=== PATIENT | female | born 1955 | race Hispanic/Latino ===

== ENCOUNTER 2017-11-09 17:30 | Observation (INO) | payer MEDICARE ==
[~2017-11-09] VITALS: Ht 162.6 cm; Wt 89.0 kg
[~2017-11-09 17:30] MED LIST: AMBIEN10 MG PO; AMBIEN5 MG PO; CALCIUM 500+D1 EACH PO; CIPRO500 MG PO; CLONAZEPAM0.5 M1 PO; CLONAZEPAM0.5 MG PO; CLONAZEPAM1 MG PO; FERROUS SULFAT325 MG PO; FLAGYL500 MG PO; HYDROCODON-ACE1 EACH PO; METOPROLOL SUCC25 MG PO; METOPROLOL TART50 MG PO; NEXIUM40 MG PO; NORCO 10-325 T1 EACH; NORCO 5-325 TA1 EACH PO; SEROPHENE50 MG PO; VICODIN ES 7.51 EACH PO; Z.0.LOSARTAN POTASS5 PO; Z.0.NEXIUM40 MG PO; Z.0.PAXIL40 MG PO; Z.0.SEROQUEL50 MG PO; Z.0.TOPROL XL50 MG PO
[2017-11-09] MEDS ORDERED: DEXTROSE 50% SYRINGE 50 ML IV STA (17:55)
[2017-11-09] MEDS ORDERED: ONDANSETRON HCL INJ 2 MG/ML VIAL IV STA (17:57)
[2017-11-09] MEDS ORDERED: SODIUM CHLORIDE 0.9% 1000ML 1,000 ML IV STA (17:57)
[2017-11-09] MEDS ORDERED: ASPIRIN 81 MG CHEW TAB PO ONE (18:00)
[2017-11-09 18:13] LABS: BASOPHILS % 0.7 % (0.0-1.0); EOSINOPHILS # (AUTO) 0.1 (0.0-0.4); EOSINOPHILS % 1.1 % (0.0-6.0); HEMATOCRIT 33.9 % (34.2-44.1); HEMOGLOBIN 10.7 g/dL (12.0-16.0); LYMPHOCYTES # (AUTO) 1.7 (1.0-3.2); LYMPHOCYTES % 38.5 % (18.0-39.1); MEAN CORPUSCULAR HEMOGLOBIN 26.7 pg (28-32); MEAN CORPUSCULAR HGB CONC 31.6 g/dL (31-35); MEAN CORPUSCULAR VOLUME 84.5 fL (81-99); MONOCYTES # (AUTO) 0.6 (0.2-0.8); MONOCYTES % 14.2 % (4.4-11.3); NEUTROPHILS % 45.3 % (38.7-80.0); PLATELET COUNT 200 x10e3/uL (140-360); RED BLOOD COUNT 4.01 x10e6/uL (3.6-5.1); RED CELL DISTRIBUTION WIDTH 15.3 % (11.7-14.4)
[2017-11-09] MEDS ORDERED: DIATRIZOATE MEGL/DIATRIZOA SOD 30 ML BTL PO ONE (18:19)
[2017-11-09 18:33] LABS: ALANINE AMINOTRANSFERASE 10 IU/L (0-55); ALBUMIN 3.8 g/dL (3.5-5.0); ALBUMIN/GLOBULIN RATIO 1.1 (0.8-2.0); ALKALINE PHOSPHATASE 76 IU/L (40-150); ANION GAP 12.7 mmol/L (8-16); BLOOD UREA NITROGEN 10 mg/dL (7-26); BUN/CREATININE RATIO 14 (6-25); CALCIUM 8.7 mg/dL (8.4-10.2); CARBON DIOXIDE 22 mmol/L (22-29); CHLORIDE 108 mmol/L (98-107); CREATINE KINASE 87 IU/L (29-168); CREATININE, SERUM 0.71 mg/dL (0.57-1.11); EST GLOMERULAR FILTRATION RATE > 60 ML/MIN (60-); POTASSIUM 3.7 mmol/L (3.5-5.1); SODIUM 139 mmol/L (136-145)
[2017-11-09] MEDS ORDERED: MORPHINE SULFATE 2 MG/ML SYR IV STA (18:33)
[2017-11-09 18:47] LABS: GLUCOSE 39 mg/dL (74-118)
[2017-11-09] MEDS ORDERED: DIPHENHYDRAMINE HCL INJ 1 ML ONE (19:01)
[2017-11-09] MEDS ORDERED: DIPHENHYDRAMINE HCL INJ 50 MG/ML VIAL IV ONE (19:30)
[2017-11-09] MEDS ORDERED: DEXTROSE 5%/0.45% SOD CHL 1,000 ML IV ONE (19:45)
--- NOTE | 2017-11-09 20:46 | Diagnostic Imaging Report ---
EXAM: CT ABDOMEN/PELVIS W DATE: 11/09/2017 6:05 PM INDICATION: Abdominal pain COMPARISON: 05/07/2016 TECHNIQUE: The abdomen and pelvis were scanned using a multidetector helical scanner. Coronal and sagittal reformations were obtained. Routine protocol performed. IV Contrast: 100 ml Isovue 370 FINDINGS: LOWER THORAX: Mild bibasilar atelectasis. LIVER/BILIARY: Stable low-density right liver lesion, likely benign. Unchanged mild biliary ductal dilation. GALLBLADDER: Cholecystectomy. SPLEEN: Unremarkable PANCREAS: Unremarkable ADRENALS: No nodules KIDNEYS: Symmetric perfusion. Stable subcentimeter probable left inferior renal cyst. No hydronephrosis. GI TRACT: Postsurgical changes are seen status post gastric bypass and prior sigmoidectomy. No evidence of obstruction or wall thickening. Normal appendix. VESSELS: Mild to moderate atherosclerotic changes. PERITONEUM/RETROPERITONEUM: No free air or fluid LYMPH NODES: No lymphadenopathy REPRODUCTIVE ORGANS/BLADDER: Hysterectomy. Bladder is mildly distended but otherwise unremarkable. SOFT TISSUES: Unremarkable BONES: There are scattered degenerative changes, worse at L5-S1. IMPRESSION: No acute abnormality. Signed by: Dr Gayle Kenny MD on 11/09/2017 8:43 PM
[2017-11-09] MEDS ORDERED: DEXTROSE 50% SYRINGE 50 ML IV PRN (21:15)
[2017-11-09 21:35] LABS: BILIRUBIN,URINE NEGATIVE (NEGATIVE); CLARITY,URINE CLEAR (CLEAR); COLOR,URINE YELLOW (YELLOW); KETONES,URINE NEGATIVE (NEGATIVE); LEUKOCYTE ESTERASE ,URINE NEGATIVE (NEGATIVE); NITRITE,URINE NEGATIVE (NEGATIVE); PROTEIN,URINE DIPSTICK NEGATIVE (NEGATIVE); URINE UROBILINOGEN 0.2 mg/dL (0.2 - 1)
[2017-11-09 21:43] LABS: BACTERIA,URINE MODERATE /HPF; EPITHELIAL CELLS,URINE RARE /LPF; RBC,URINE 0-5 /HPF (0-5); WBC,URINE (MAN) 0-5 /HPF (0-5)
[2017-11-09 22:27] VITALS: BP 157/88
[2017-11-09 22:48] VITALS: BP 157/88
[2017-11-09 23:02] VITALS: BP 157/88
[2017-11-10] VITALS (8 sets, daily range): BP systolic 102–135; BP diastolic 50–76
[2017-11-10] MEDS ORDERED: SODIUM CHLORIDE 0.9% 50ML 50 ML ONE (01:30)
[2017-11-10] MEDS ORDERED: IOPAMIDOL 370 MG/ML 200 ML INFUS..BTL INJ ONE (01:31)
[2017-11-10] MEDS ORDERED: METOPROLOL SUCCINATE 25 MG TAB XL PO SCH (05:00)
[2017-11-10] MEDS ORDERED: HYDROCODONE/APAP 10MG-325MG TAB PO PRN (05:00)
[2017-11-10] MEDS: LEVOFLOXACIN 500MG/D5W 100ML 100 ML IV SCH (06:16)
[2017-11-10] MEDS: METRONIDAZOLE 500MG/NS 100ML 100 ML IV SCH ×3 (06:16→21:00)
[2017-11-10 06:24] LABS: BASOPHILS % 0.8 % (0.0-1.0); EOSINOPHILS # (AUTO) 0.1 (0.0-0.4); EOSINOPHILS % 1.6 % (0.0-6.0); HEMATOCRIT 34.9 % (34.2-44.1); HEMOGLOBIN 10.7 g/dL (12.0-16.0); LYMPHOCYTES # (AUTO) 1.2 (1.0-3.2); LYMPHOCYTES % 33.3 % (18.0-39.1); MEAN CORPUSCULAR HEMOGLOBIN 26.4 pg (28-32); MEAN CORPUSCULAR HGB CONC 30.7 g/dL (31-35); MONOCYTES # (AUTO) 0.4 (0.2-0.8); MONOCYTES % 11.7 % (4.4-11.3); NEUTROPHILS # (AUTO) 1.9 (2.1-6.9); NEUTROPHILS % 52.3 % (38.7-80.0); PLATELET COUNT 167 x10e3/uL (140-360); RED BLOOD COUNT 4.06 x10e6/uL (3.6-5.1); RED CELL DISTRIBUTION WIDTH 15.3 % (11.7-14.4)
[2017-11-10] MEDS ORDERED: SODIUM CHLORIDE 0.9% 250ML 250 ML ONE (06:26)
[2017-11-10] MEDS: HYDROMORPHONE 1MG/1ML INJ IV PRN ×4 (06:31→20:35)
[2017-11-10] MEDS: ONDANSETRON HCL INJ 2 MG/ML VIAL IV PRN ×4 (06:32→20:35)
[2017-11-10 06:51] LABS: ALANINE AMINOTRANSFERASE 8 IU/L (0-55); ALBUMIN 3.4 g/dL (3.5-5.0); ALBUMIN/GLOBULIN RATIO 1.1 (0.8-2.0); ALKALINE PHOSPHATASE 68 IU/L (40-150); ANION GAP 11.2 mmol/L (8-16); BLOOD UREA NITROGEN 8 mg/dL (7-26); BUN/CREATININE RATIO 11 (6-25); CALCIUM 8.4 mg/dL (8.4-10.2); CARBON DIOXIDE 22 mmol/L (22-29); CHLORIDE 106 mmol/L (98-107); CREATININE, SERUM 0.71 mg/dL (0.57-1.11); EST GLOMERULAR FILTRATION RATE > 60 ML/MIN (60-); GLUCOSE 91 mg/dL (74-118); POTASSIUM 4.2 mmol/L (3.5-5.1); SODIUM 135 mmol/L (136-145)
[2017-11-10] MEDS: CLONAZEPAM 1 MG TAB PO SCH ×3 (08:21→21:49)
[2017-11-10] MEDS: PANTOPRAZOLE SOD 40 MG TABEC PO SCH (08:21)
--- NOTE | 2017-11-10 09:42 | History and Physical ---
PRIMARY CARE PHYSICIAN: Dr. Rizo CHIEF COMPLAINT: Diarrhea and abdominal pain. HISTORY OF PRESENT ILLNESS: This is a 62-year-old woman with a history of diverticulosis now developing abdominal pain and diarrhea for the past 2 days after eating a local restaurant. Abdominal pain is in the lower quadrant. No vomiting. She has been nauseous. She denies any fever, chest pain or sweats. The patient felt fatigued and dehydrated. The patient was found to be hypoglycemic. Glucose was as low as 39. PAST MEDICAL HISTORY: Chronic pain syndrome, diverticulosis, diverticulitis, status post colon resection times 2, small-bowel obstruction, status post surgical management, insomnia, and anxiety disorder. PAST SURGICAL HISTORY: Colon resection for diverticulitis, small-bowel obstruction related surgeries, carpal tunnel release surgery, hemorrhoidectomy, cholecystectomy, gastric bypass in 2000. ALLERGIES: PER ELECTRONIC RECORDS. FAMILY HISTORY/SOCIAL HISTORY: Patient is . She has 4 children. No alcohol or illicits. MEDICATIONS: Per electronic medical record. REVIEW OF SYSTEMS: Denies any dizziness, chest pain. PHYSICAL EXAMINATION VITAL SIGNS: Reviewed. GENERAL: A tired-appearing woman resting in bed. HEENT: Anicteric. Pupils respond to light. No oral lesions. CARDIOVASCULAR: Normal S1 and S2. LUNGS: Moderate breath sounds. ABDOMEN: Soft and nondistended. She has tenderness in the lower quadrant. No rebound or guarding. EXTREMITIES: No edema or calf tenderness. NEUROLOGICAL: Alert and oriented times 3. Moving all extremities. SKIN: Dry. PSYCHIATRIC: Flat affect. LABS: Reviewed. MEDICATIONS: Reviewed. ASSESSMENT AND PLAN: This is a 62-year-old woman with: 1. Acute gastroenteritis: Will start Flagyl and Levaquin. Will obtain stool for Clostridium difficile. We will rehydrate the patient with intravenous fluids. 2. Hypoglycemia, improved: Add D5 to fluids if needed. 3. Obesity: Screen for diabetes and obtain lipid panel. 4. Hypertension: Restart beta malik. 5. Abdominal pain: P.r.n. pain medications. 6. Insomnia: Restart Ambien. 7. Normocytic anemia: Will follow. 8. Mild leukopenia: Will follow. 9. Prophylaxis: Will use Lovenox and proton pump inhibitor. 10. Disposition: Monitor closely. Job#: [id number] [place]
[2017-11-10] MEDS ORDERED: ENOXAPARIN SOD INJ 40 MG/0.4 ML SYR SC SCH (17:00)
[2017-11-10] MEDS ORDERED: ZOLPIDEM TARTRATE 5 MG TAB PO SCH (21:00)
[2017-11-11 00:04] VITALS: BP 147/75
[2017-11-11] MEDS: ONDANSETRON HCL INJ 2 MG/ML VIAL IV PRN ×4 (01:00→13:15)
[2017-11-11] MEDS: HYDROMORPHONE 1MG/1ML INJ IV PRN ×4 (01:00→13:15)
[2017-11-11 04:00] VITALS: BP 122/72
[2017-11-11] MEDS ORDERED: SODIUM CHLORIDE 0.9% 250ML 250 ML ONE (04:47)
[2017-11-11] MEDS: METRONIDAZOLE 500MG/NS 100ML 100 ML IV SCH (05:23)
[2017-11-11] MEDS: PANTOPRAZOLE SOD 40 MG TABEC PO SCH (06:01)
[2017-11-11] MEDS: LEVOFLOXACIN 500MG/D5W 100ML 100 ML IV SCH (06:21)
[2017-11-11 07:05] VITALS: BP 145/91
[2017-11-11] MEDS ORDERED: FLAGYL500 MG PO (07:16)
[2017-11-11] MEDS ORDERED: LEVAQUIN500 MG PO (07:16)
[2017-11-11] MEDS ORDERED: ULTRAM 50MG50 MG PO (07:16)
[2017-11-11] MEDS ORDERED: IMODIUM2 MG PO (07:17)
[2017-11-11] MEDS ORDERED: LOPERAMIDE HCL 2 MG CAP PO PRN (07:30)
--- NOTE | 2017-11-11 07:43 | Progress Note ---
DATE: November 11, 2017 TIME: 7:00 a.m. OVERNIGHT: Complained of pain. REVIEW OF SYSTEMS: Denies any dizziness. One diarrhea episode overnight. PHYSICAL EXAM VITAL SIGNS: Reviewed. GENERAL: A tired-appearing woman resting in bed. HEENT: Anicteric. CARDIOVASCULAR: Normal S1/S2. LUNGS: Moderate breath sounds. ABDOMEN: Soft, nondistended. Tenderness in the lower quadrant of the abdomen. EXTREMITIES: No edema. NEUROLOGIC: Alert, awake, oriented times 3. Moving extremities. SKIN: Dry. PSYCHIATRIC: Flat affect. LABS: Reviewed. MEDICATIONS: Reviewed. ASSESSMENT: This is a 62-year-old woman. 1. Acute gastroenteritis. Will continue with antibiotics. Clostridium difficile testing is negative. Discharge planning. There is no leukocytosis. Patient can be transitioned home with p.o. medication. 2. Hypoglycemia, resolved. 3. Obesity. 4. Hemoglobin A1c is 5.0. Does not have diabetes. 5. Hypertension. Continue medication and blood pressure control. 6. Abdominal pain, improving. Continue pain medication. 7. Insomnia. 8. Normocytic anemia. 9. Mild leukopenia. 10. Prophylaxis. Continue proton pump inhibitor. 11. Disposition: Likely discharge home later today. Job#: [id number] CQ
[2017-11-11 08:00] VITALS: BP 145/91
[2017-11-11] MEDS: CLONAZEPAM 1 MG TAB PO SCH (08:24)
[2017-11-11 11:51] VITALS: BP 114/69
== END 2017-11-11 14:01 | disposition home or self-care (01) ==
LOC: ER 17:30 → ERHOLD 21:23 → IMCU 22:01
PROVIDERS: ADMIT Internal Medicine; ATTEND Internal Medicine
DX: K52.9 Noninfective gastroenteritis and colitis, unspecified (principal); E86.0 Dehydration; E16.2 Hypoglycemia, unspecified; D72.819 Decreased white blood cell count, unspecified; D64.9 Anemia, unspecified; I10 Essential (primary) hypertension; E66.9 Obesity, unspecified; Z68.33 Body mass index [BMI] 33.0-33.9, adult; G47.00 Insomnia, unspecified; Z98.84 Bariatric surgery status; Z90.49 Acquired absence of other specified parts of digestive tract
CPT/HCPCS: 36415 ×3; 74177; 80053 ×2; 81001; 82550; 82553; 82948 ×3; 83036; 84484; 85025 ×2; 85651; 87086; 87493; 93005; 96374; 99284; G0378 ×3; J1170 ×2; J1200; J1650; J1956 ×2; J2270; J2405 ×3; J7030; J7050 ×2; J7799; Q9967

== ENCOUNTER 2017-12-18 12:36 | Emergency (ER) | payer MEDICARE ==
[~2017-12-18] VITALS: Ht 162.6 cm; Wt 81.6 kg
[~2017-12-18 12:36] MED LIST changes: +IMODIUM2 MG PO; +LEVAQUIN500 MG PO; +ULTRAM 50MG50 MG PO
--- OUTSIDE RECORDS SUMMARY | 2017-12-18 12:39 | XMS REPORT | Continuity of Care Document ---
Author Author [facility] Organization [facility] Address [address] [place] [address] Phone Unavailable Care Team Providers Care Dental Instrument Maker Name Role Phone CHEN KIM MD PCP Insurance Providers Guarantor Juany Orr Address [address] [place] [address] Payer [facility] [employer] Policy Number [id number] Subscriber's Name Juany Orr Relationship 18 Self / Same As Patient Group Number [id number] Advance Directives Directive Response Recorded Date/Time Does the patient have an advance directive? No 11/09/17 10:57pm If yes, is advance directive on file with [facility]? No 11/09/17 10:57pm If not on file with [facility] will patient provide a copy? No 11/09/17 10:57pm Do you have a Directive to Physician? No 11/09/17 6:32pm Do you have a Medical Power of Hand Spring Repairer Helper? No 11/09/17 6:32pm Do you have an out of hospital Do Not Resuscitate Order? No 11/09/17 6:32pm Do you have any special needs we should be aware of? No 11/09/17 6:32pm Do you have a support person here with you today? Yes 11/09/17 6:32pm Did patient receive Notice of Privacy Practices? Yes 11/09/17 6:32pm Did patient receive patient rights and responsibilities? Yes 11/09/17 6:32pm Problems Medical Problem Onset Date Status Acute diarrhea Unknown Chest pain Unknown Chronic abdominal pain Unknown Acute Constipation by delayed colonic transit Unknown Acute Hypoglycemia Unknown Medications Current Home Medications Medication Dose Units Route Directions Days Qty Instructions Start Date Clonazepam 1 Mg Tablet 1 Mg Oral Three Times A Day Esomeprazole Magnesium (Nexium) 40 Mg Capsule. 40 Mg Oral Daily PROTONIX THERAPEUTIC SUBSTITUTE FOR NEXIUM PER [facility] Hydrocodone Bit/Acetaminophen ([place] 10-325 Tablet) 1 Each Tablet 10 Mg Every 4 Hours 50 Levofloxacin (Levaquin) 500 Mg Tablet 500 Mg Oral Daily 7 Days Loperamide Hcl (Imodium*) 2 Mg Cap 2 Mg Oral Every 6 Hours as needed for Diarrhea 14 Days 11/11/17 Metoprolol Succinate 25 Mg Tab.er.24h 25 Mg Oral As Needed Metronidazole (Flagyl) 500 Mg Tablet 500 Mg Oral Three Times A Day 7 Days 11/11/17 Tramadol Hcl (Ultram 50MG*) 50 Mg Tab 50 Mg Oral Every 8 Hours as needed for Pain 20 Tab 11/11/17 Zolpidem Tartrate (Ambien) 5 Mg Tablet 10 Mg Oral Bedtime Past Home Medications Medication Directions Ordered Status Calcium Carbonate/Vitamin D3 (Calcium 500+D Tablet Chew) 1 Each Tab.chew, 2 Tab Oral Daily Discontinued Clomiphene Citrate (Serophene) 50 Mg Tablet, 50 Mg Oral At Bedtime Discontinued Clonazepam 0.5 Mg Tablet, 0.5 Mg Oral Daily Discontinued Clonazepam 0.5 Mg Tab.rapdis, 0.5 Mg Oral As Needed Discontinued Esomeprazole Mag Trihydrate (Nexium) 40 Mg Capsule., 1 Tab Oral Daily Discontinued Ferrous Sulfate 325 Mg Tablet, 325 Mg Oral Daily Discontinued Hydrocodone Bit/Acetaminophen ([place] 5-325 Tablet) 1 Each Tablet, 1 Each Oral Q4-6 Hrs as needed for Pain Discontinued Losartan Potassium 50 Mg Tablet, 50 Tab Oral Daily Discontinued Metoprolol Succinate (Toprol Xl) 50 Mg Tab.sr.24h, 50 Tab Oral Daily Discontinued Metoprolol Tartrate 50 Mg Tablet, 50 Mg Oral Daily Discontinued Paroxetine Hcl (Paxil) 40 Mg Tablet, 1 Tab Oral Daily Discontinued Quetiapine Fumarate (Seroquel) 50 Mg Tablet, 1 Tab Oral Daily Discontinued Zolpidem Tartrate (Ambien) 10 Mg Tablet, 10 Mg Oral Bedtime Discontinued Social History Social History Problem Response Recorded Date/Time Onset Date Status Hx Psychiatric Problems No 11/09/2017 10:57pm Not Applicable Not Applicable Hx Eating Disorder No 11/09/2017 10:57pm Not Applicable Not Applicable Hx Substance Use Disorder No 11/09/2017 10:57pm Not Applicable Not Applicable Hx Depression No 11/09/2017 10:57pm Not Applicable Not Applicable Hx Alcohol Use No 11/09/2017 10:57pm Not Applicable Not Applicable Hx Substance Use Treatment No 11/09/2017 10:57pm Not Applicable Not Applicable Hx Physical Abuse No 11/09/2017 10:57pm Not Applicable Not Applicable Smoking Status Start Date Stop Date Former smoker Hospital Discharge Instructions No hospital discharge instruction information available. Plan of Care Discharge Date 11/11/17 2:01pm Disposition HOME, SELF-CARE Instructions/Education Provided Dehydration - Adult Prescriptions See Medication Section Referrals pcp (Internal Medicine) Order Date: 5-7 Days Entered Date: 11/11/2017 7:17am Functional Status Query Response Date Recorded Assistive Devices None November 09, 2017 11:02pm Ambulation Ability Independent November 09, 2017 11:02pm Toileting Ability Independent November 11, 2017 1:11pm Allergies, Adverse Reactions, Alerts Allergen Type Severity Reaction Status Last Updated Morphine Adverse Reaction Mild RASH Active 11/09/17 Immunizations No immunization information available. Vital Signs Acute Vital Signs Vital Response Date/Time Temperature (Fahrenheit) 98.7 degrees F (97.6 - 99.5) 11/11/2017 11:51am Pulse Pulse Rate (adult) 74 bpm (60 - 90) 11/11/2017 11:51am Respiratory Rate 20 bpm (12 - 24) 11/11/2017 11:51am Blood Pressure 114/69 mm Hg 11/11/2017 11:51am Height 5 ft 4 in 11/09/2017 5:50pm Weight 196.13 lb 11/09/2017 10:26pm Body Mass Index 33.7 kg/m^2 11/09/2017 10:57pm Results Laboratory Results Test Name Result Units Flags Reference Collection Date/Time Result Date/ Time Comments White Blood Count 3.66 x10e3/uL L 4.8-10.8 11/10/2017 5:11/10/2017 6:25am Red Blood Count 4.06 x10e6/uL 3.6-5.1 11/10/2017 5:11/10/2017 6: 25am Hemoglobin 10.7 g/dL L 12.0-16.0 11/10/2017 5:11/10/2017 6:25am Hematocrit 34.9 % 34.2-44.1 11/10/2017 5:11/10/2017 6:25am Mean Corpuscular Volume 86.0 fL 81-99 11/10/2017 5:11/10/2017 6: 25am Mean Corpuscular Hemoglobin 26.4 pg L 28-32 11/10/2017 5:2017 6:25am Mean Corpuscular Hemoglobin Concent 30.7 g/dL L 31-35 11/10/2017 5:11/10/2017 6:25am Red Cell Distribution Width 15.3 % H 11.7-14.4 11/10/2017 5:2017 6:25am Platelet Count 167 x10e3/uL 140-360 11/10/2017 5:11/10/2017 6: 25am Neutrophils (%) (Auto) 52.3 % 38.7-80.0 11/10/2017 5:11/10/2017 6: 25am Lymphocytes (%) (Auto) 33.3 % 18.0-39.1 11/10/2017 5:11/10/2017 6: 25am Monocytes (%) (Auto) 11.7 % H 4.4-11.3 11/10/2017 5:11/10/2017 6: 25am Eosinophils (%) (Auto) 1.6 % 0.0-6.0 11/10/2017 5:11/10/2017 6: 25am Basophils (%) (Auto) 0.8 % 0.0-1.0 11/10/2017 5:11/10/2017 6:25am IM GRANULOCYTES % 0.3 % 0.0-1.0 11/10/2017 5:23am 11/10/2017 6:25am Neutrophils # (Auto) 1.9 L 2.1-6.9 11/10/2017 5:23am 11/10/2017 6: 25am Lymphocytes # (Auto) 1.2 1.0-3.2 11/10/2017 5:23am 11/10/2017 6:25am Monocytes # (Auto) 0.4 0.2-0.8 11/10/2017 5:23am 11/10/2017 6:25am Eosinophils # (Auto) 0.1 0.0-0.4 11/10/2017 5:23am 11/10/2017 6:25am Basophils # (Auto) 0.0 0.0-0.1 11/10/2017 5:23am 11/10/2017 6:25am Absolute Immature Granulocyte (auto 0.01 x10e3/uL 0-0.1 11/10/2017 5: 23am 11/10/2017 6:25am Erythrocyte Sedimentation Rate 8 mm/hr 0-20 11/10/2017 8:30am 2017 9:29am Urine Color YELLOW YELLOW 11/09/2017 9:30pm 11/09/2017 9:36pm Urine Clarity CLEAR CLEAR 11/09/2017 9:30pm 11/09/2017 9:36pm Urine Specific [place] 1.015 1.010-1.025 11/09/2017 9:30pm 2017 9:36pm Urine pH 6 5 - 7 11/09/2017 9:30pm 11/09/2017 9:36pm Urine Leukocyte Esterase NEGATIVE NEGATIVE 11/09/2017 9:30pm 2017 9:36pm Urine Nitrite NEGATIVE NEGATIVE 11/09/2017 9:30pm 11/09/2017 9:36pm Urine Protein NEGATIVE NEGATIVE 11/09/2017 9:30pm 11/09/2017 9:36pm Urine Glucose (UA) NEGATIVE NEGATIVE 11/09/2017 9:30pm 11/09/2017 9: 36pm Urine Ketones NEGATIVE NEGATIVE 11/09/2017 9:30pm 11/09/2017 9:36pm Urine Urobilinogen 0.2 mg/dL 0.2 - 1 11/09/2017 9:30pm 11/09/2017 9: 36pm Urine Bilirubin NEGATIVE NEGATIVE 11/09/2017 9:30pm 11/09/2017 9: 36pm Urine Blood TRACE H NEGATIVE 11/09/2017 9:30pm 11/09/2017 9:36pm Urine WBC 0-5 /HPF 0-5 11/09/2017 9:30pm 11/09/2017 9:43pm Urine RBC 0-5 /HPF 0-5 11/09/2017 9:30pm 11/09/2017 9:43pm Urine Bacteria MODERATE /HPF H NONE 11/09/2017 9:30pm 11/09/2017 9:43pm Urine Epithelial Cells RARE /LPF NONE 11/09/2017 9:30pm 11/09/2017 9: 43pm Sodium Level 135 mmol/L L 136-145 11/10/2017 5:23am 11/10/2017 7:00am Potassium Level 4.2 mmol/L 3.5-5.1 11/10/2017 5:23am 11/10/2017 7:00am Chloride Level 106 mmol/L 98-107 11/10/2017 5:23am 11/10/2017 7:00am Carbon Dioxide Level 22 mmol/L 22-29 11/10/2017 5:23am 11/10/2017 7: 00am Anion Gap 11.2 mmol/L 8-16 11/10/2017 5:23am 11/10/2017 7:00am Blood Urea Nitrogen 8 mg/dL 7-26 11/10/2017 5:23am 11/10/2017 7:00am Creatinine 0.71 mg/dL 0.57-1.11 11/10/2017 5:23am 11/10/2017 7:00am BUN/Creatinine Ratio 11 6-25 11/10/2017 5:23am 11/10/2017 7:00am Estimat Glomerular Filtration Rate > 60 ML/MIN 60- 11/10/2017 5:23am 7:00am Ranges were taken from the National Kidney Disease Education Program and the National Kid[employer] Foundation literature. Reference ranges: 60 or greater: Normal 16-59 (for 3 consecutive months): Chronic kidney disease 15 or less: Kidney failure Glucose Level 91 mg/dL 74-118 11/10/2017 5:23am 11/10/2017 7:00am Calcium Level 8.4 mg/dL 8.4-10.2 11/10/2017 5:23am 11/10/2017 7:00am Bedside Glucose 105 mg/dL 70-120 11/11/2017 11:40am 11/11/2017 11:47am Meter ID: [id number] Hemoglobin A1c Percent 5.0 % 4.0-7.0 11/10/2017 5:23am 11/10/2017 7: 35am Total Bilirubin 0.5 mg/dL 0.2-1.2 11/10/2017 5:23am 11/10/2017 7:00am Aspartate Amino Transf (AST/SGOT) 18 IU/L 5-34 11/10/2017 5:23am 2017 7:00am Alanine Aminotransferase (ALT/SGPT) 8 IU/L 0-55 11/10/2017 5:23am 11/10 7:00am Total Protein 6.6 g/dL 6.5-8.1 11/10/2017 5:23am 11/10/2017 7:00am Albumin 3.4 g/dL L 3.5-5.0 11/10/2017 5:23am 11/10/2017 7:00am Globulin 3.2 g/dL 2.3-3.5 11/10/2017 5:23am 11/10/2017 7:00am Albumin/Globulin Ratio 1.1 0.8-2.0 11/10/2017 5:23am 11/10/2017 7: 00am Alkaline Phosphatase 68 IU/L 40-150 11/10/2017 5:23am 11/10/2017 7: 00am Creatine Kinase 87 IU/L 29-168 11/09/2017 5:50pm 11/09/2017 6:47pm Creatine Kinase MB 1.00 ng/mL 0-5.0 11/09/2017 5:50pm 11/09/2017 6: 47pm Troponin I < 0.00 ng/mL L 0.0-0.78 11/09/2017 5:50pm 11/09/2017 6:47pm Clostridium Difficile Toxin A & B NEGATIVE NEGATIVE 11/10/2017 4:35pm 11/10/2017 8:22pm Testing on stool aspirate specimens is outside gin feeder claims since specimen type not validated on this assay. Procedures Procedure Status Date Provider(s) Computed tomography of abdomen and pelvis with contrast Active 11/09/17 MIKEY FLORENTINO MD Encounters Encounter Location Arrival/Admit Date Discharge/Depart Date Attending Provider Discharged Inpatient (obs) [facility] 11/09/17 9:23pm 2:01pm GIANFRANCO CUNHA MD
--- OUTSIDE RECORDS SUMMARY | 2017-12-18 12:39 | XMS REPORT | Clinical Summary ---
Author Author [facility] Address Unknown Phone Unavailable Care Team Providers Care Claims Configuration Analyst Name Role Phone Asked, Pcp PCP Unavailable Allergies Active Allergy Reactions Severity Noted Date Comments Morphine Hives 11/24/2017 Blisters Current Medications Prescription Sig. Disp. Refills Start End Date Status Date clonAZEPAM (KlonoPIN) 1 Take 1 mg by mouth every Active MG tablet 8 (eight) hours as needed for anxiety. clonAZEPAM (KlonoPIN) 2 Take 2 mg by mouth every Active MG tablet 8 (eight) hours as needed for anxiety. diclofenac (VOLTAREN) 1 % Apply 1 application Active gel topically every 6 (six) hours as needed (pain). HYDROcodone-acetaminophen Take 1 tablet by mouth Active (NORCO) 10-325 mg per every 8 (eight) hours as tablet needed for moderate pain. promethazine-codeine Take 5 mL by mouth every Active (PHENERGAN with CODEINE) 6 (six) hours as needed 6.25-10 mg/5 mL syrup for cough. zolpidem (AMBIEN) 10 mg Take 10 mg by mouth Active tablet nightly as needed for sleep. cholecalciferol, vitamin Take 1,000 Units by mouth Active D3, (VITAMIN D3) 1,000 daily. unit tablet ascorbic acid, vitamin C, Take 500 mg by mouth Active (VITAMIN C) 500 MG tablet daily. TURMERIC ROOT EXTRACT Take 1 tablet by mouth Active ORAL daily. amoxicillin-pot Take 1 tablet by mouth 2 20 tablet 0 11/27/19 clavulanate (AUGMENTIN) (two) times a day for 10 18 18 875-125 mg per tablet days. methylPREDNISolone follow package directions 21 tablet 0 11/27/19 (MEDROL, KERRY,) 4 mg 18 18 tablet Active Problems Problem Noted Date Pneumonia of right middle lobe due to infectious organism 11/25/2017 Atypical pneumonia 11/25/2017 Encounters Date Type Specialty Care Team Description 11/24/2017 [facility] General Internal Medicine Anh Finney MD Pneumonia of right middle - Encounter Faye Marsh MD lobe due to infectious 11/26/2017 Althea Kincaid organism (Primary Dx) MD Gia after 12/17/2016 Social History Tobacco Use Types Packs/Day Years Used Date Never Smoker Smokeless Tobacco: Never Used Alcohol Use Drinks/Week oz/Week Comments No Sex Assigned at Date Recorded Not on file Last Filed Vital Signs Vital Sign Reading Time Taken Blood Pressure 135/81 11/26/2017 4:09 PM HALL MANAGER Pulse 97 11/26/2017 4:13 PM HALL MANAGER Temperature 35.9 C (96.7 F) 11/26/2017 4:09 PM HALL MANAGER Respiratory Rate 16 11/26/2017 4:09 PM HALL MANAGER Oxygen Saturation 96% 11/26/2017 4:13 PM HALL MANAGER Inhaled Oxygen - - Concentration Weight 83.9 kg (185 lb) 11/25/2017 7:00 AM HALL MANAGER Height 162.6 cm (5' 4") 11/24/2017 7:34 PM HALL MANAGER Body Mass Index 31.75 11/25/2017 7:00 AM HALL MANAGER Plan of Treatment Health Maintenance Due Date Last Done Comments PAP SMEAR 1974 COLONOSCOPY 2003 MAMMOGRAM 2003 ZOSTER VACCINE 2013 INFLUENZA VACCINE 04/22/2017 Results * ECG ED Preliminary Interpretation - NOT AN ORDER (11/25/2017 7:39 AM) Narrative Jazzmine Duvalla 11/25/20171:40 AM ECG ED Preliminary Interpretation - Not an Order Performed by: ANH FINNEY Authorized by: ANH FINNEY ECG reviewed by ED Physician in the absence of a disability case manager: yes Previous ECG: Previous ECG:Unavailable Interpretation: Interpretation: normal Rate: ECG rate:105 ECG rate assessment: tachycardic Rhythm: Rhythm: sinus tachycardia Ectopy: Ectopy: none QRS: QRS axis:Normal QRS intervals:Normal Conduction: Conduction: normal ST segments: ST segments:Normal T waves: T waves: normal * Lactic acid level, SEPSIS - Now and repeat 2x every 3 hours (11/25/2017 3:13 AM) Only the most recent of 3 results within the time period is included. Component Value Ref Range Lactic acid 1.2 0.5 - 2.2 mmol/L Specimen Performing Laboratory Plasma specimen [facility] DEPARTMENT OF PATHOLOGY AND [address] [address] * ALT (SGPT) (11/25/2017 3:13 AM) Component Value Ref Range ALT <5 (A) 5 - 50 U/L Specimen Performing Laboratory Plasma specimen [facility] DEPARTMENT OF PATHOLOGY AND [address] [address] * AST (SGOT) (11/25/2017 3:13 AM) Component Value Ref Range AST 17 10 - 35 U/L Specimen Performing Laboratory Plasma specimen [facility] DEPARTMENT OF PATHOLOGY AND [address] [address] * Potassium level (11/25/2017 3:13 AM) Component Value Ref Range Potassium 3.6 3.5 - 5.0 mEq/L Specimen Performing Laboratory Plasma specimen [facility] DEPARTMENT OF PATHOLOGY [address] [address] * CT Chest Wo Contrast (11/25/2017 2:35 AM) Specimen Performing Laboratory [facility] [address] [place] [id number] CHEST WO CONTRAST CLINICAL INDICATION: cough TECHNIQUE:Multidetector CT imaging of the chest was performed without intravenous contrast with multiplanar reconstructions. CT scans are performed using radiation dose reduction techniques (iterative reconstruction and/or automated exposure control). Technical factors are evaluated and adjusted to ensure appropriate moderation of exposure. Automated dose management technology is applied to adjust radiation exposure while achieving a diagnostic quality image. COMPARISON:Chest radiograph 11/24/2017. FINDINGS: Lungs and large airways: Scattered bilateral central peribronchovascular groundglass opacities with basilar predominance. Pleura:No pleural effusion, pleural thickening, or pneumothorax. Heart and pericardium:Heart size is normal. Trace pericardial effusion. Vessels:Mild calcific atherosclerosis of the thoracic aorta. Main pulmonary artery measures 2.7 cm in diameter. Coronary atherosclerosis. Evaluation of vessel lumens is limited due to lack of IV contrast. Mediastinum and yanet:No mass or hematoma. Lymph nodes:No pathological adenopathy in the yanet, axilla or mediastinum. Chest wall:Unremarkable. Bones:Diffuse osteopenia. Mild degenerative changes. Upper abdomen: Status post cholecystectomy. Postsurgical changes of the stomach. IMPRESSION: Scattered bilateral groundglass opacities, likely atypical pneumonia. [facility]-[id number] Procedure Note Hm Interface, Radiology Results Incoming - 11/25/2017 2:[address] CHEST WO CONTRAST CLINICAL INDICATION: cough TECHNIQUE: Multidetector CT imaging of the chest was performed without intravenous contrast with multiplanar reconstructions. CT scans are performed using radiation dose reduction techniques (iterative reconstruction and/or automated exposure control). Technical factors are evaluated and adjusted to ensure appropriate moderation of exposure. Automated dose management technology is applied to adjust radiation exposure while achieving a diagnostic quality image. COMPARISON: Chest radiograph 11/24/2017. FINDINGS: Lungs and large airways: Scattered bilateral central peribronchovascular groundglass opacities with basilar predominance. Pleura: No pleural effusion, pleural thickening, or pneumothorax. Heart and pericardium: Heart size is normal. Trace pericardial effusion. Vessels: Mild calcific atherosclerosis of the thoracic aorta. Main pulmonary artery measures 2.7 cm in diameter. Coronary atherosclerosis. Evaluation of vessel lumens is limited due to lack of IV contrast. Mediastinum and yanet: No mass or hematoma. Lymph nodes: No pathological adenopathy in the yanet, axilla or mediastinum. Chest wall: Unremarkable. Bones: Diffuse osteopenia. Mild degenerative changes. Upper abdomen: Status post cholecystectomy. Postsurgical changes of the stomach. IMPRESSION: Scattered bilateral groundglass opacities, likely atypical pneumonia. [facility]-[id number] * Blood culture, aerobic & anaerobic (11/25/2017 1:00 AM) Only the most recent of 2 results within the time period is included. Component Value Ref Range Blood culture isolate No growth after 5 days of incubation. Comment: Specimen Information Specimen Source: Blood Specimen Site: Antecubital, right Specimen Performing Laboratory Blood - Antecubital, [facility] DEPARTMENT OF PATHOLOGY AND GENOMIC MEDICINE right [address] [place] [address] * ECG 12 lead (11/24/2017 11:04 PM) Component Value Ref Range Ventricular rate 105 Atrial rate 105 DC interval 156 QRSD interval 82 QT interval 348 QTC interval 459 P axis 1 10 QRS axis 1 -24 T wave axis 17 EKG impression Sinus tachycardia-Poor R wave progression- Specimen Performing Laboratory [facility] [address]USE [address] [place] [address] * Estimated GFR (11/24/2017 10:43 PM) Component Value Ref Range GFR Non Af Amer >90 mL/min/1.73 m2 GFR Af Amer >90 mL/min/1.73 m2 Comment: Chronic kidney disease: <60 mL/min/1.73m2 Kidney failure: <15 mL/min/1.73m2 The estimated GFR is calculated from the IDMS-traceable Modification of Diet in Renal Disease Equation. The accuracy of the calculation is poor when the creatinine is normal. Calculated values >90 mL/min/1.73m2 are not reported. This equation has not been validated in children (<18 years), women, the elderly (>70 years), or ethnic groups other than Caucasians and Americans. Specimen Performing Laboratory Plasma specimen [facility] DEPARTMENT OF PATHOLOGY AND GENOMIC MEDICINE [address] [place] [address] * CBC with platelet and differential (11/24/2017 10:43 PM) Component Value Ref Range WBC 11.49 (H) 4.50 - 11.00 k/uL RBC 4.02 (L) 4.20 - 5.50 m/uL HGB 10.7 (L) 12.0 - 16.0 g/dL HCT 34.4 (L) 37.0 - 47.0 % MCV 85.6 82.0 - 100.0 fL MCH 26.6 (L) 27.0 - 34.0 pg MCHC 31.1 31.0 - 37.0 g/dL RDW - SD 47.8 37.0 - 55.0 fL MPV 10.2 8.8 - 13.2 fL Platelet count 250 150 - 400 k/uL Nucleated RBC 0.00 /100 WBC Neutrophils 80.1 (H) 39.0 - 69.0 % Lymphocytes 12.8 (L) 25.0 - 45.0 % Monocytes 5.3 0.0 - 10.0 % Eosinophils 0.7 0.0 - 5.0 % Basophils 0.2 0.0 - 1.0 % Immature granulocytes 0.9Comment: "Immature granulocytes" 0.0 - 1.0 % (promyelocytes, myelocytes, metamyelocytes) Specimen Performing Laboratory Blood [facility] DEPARTMENT OF PATHOLOGY AND GENOMIC MEDICINE [address] [place] [phone] * Comprehensive metabolic panel (11/24/2017 10:43 PM) Component Value Ref Range Sodium 137 135 - 148 mEq/L Potassium SEE COMMENT 3.5 - 5.0 mEq/L Comment: Footnote--------- Sample is hemolyzed. Chloride 99 98 - 112 mEq/L CO2 25 24 - 31 mEq/L Anion gap 13 7 - 15 mEq/L Comment: Starting from December , anion gap calculation no longer incorporates potassium. Please note the change. BUN 8 8 - 23 mg/dL Creatinine 0.5 0.5 - 0.9 mg/dL Glucose 99 65 - 99 mg/dL Calcium 8.7 (L) 8.8 - 10.2 mg/dL Protein 7.7 6.3 - 8.3 g/dL Comment: [place] 4.6-7.0 g/dL 1 week 4.4-7.6 g/dL 7 months-1year 5.1-7.3 g/dL 1-2 years 5.6-7.5 g/dL >3 years 6.0-8.0 g/dL 18-150 6.3-8.3 g/dL Albumin 3.1 (L) 3.5 - 5.0 g/dL A/G ratio 0.7 0.7 - 3.8 Alkaline phosphatase SEE COMMENTComment: Footnote--------- 35 - 104 U/L AST SEE COMMENTComment: Footnote--------- 10 - 35 U/L ALT SEE COMMENTComment: Footnote--------- 5 - 50 U/L Total bilirubin 0.6 0.0 - 1.2 mg/dL Specimen Performing Laboratory Plasma specimen [facility] DEPARTMENT OF PATHOLOGY AND GENOMIC MEDICINE [address] [place], [place] [id number] * XR Chest 2 Vw (11/24/2017 9:20 PM) Specimen [facility] [address] [place], [place] [id number] Narrative Study:XR CHEST 2 VW History: fever COMPARISON: None. IMPRESSION: 2 views of the chest.There is a streaky opacity in the retrocardiac region which could represent some scarring or infiltrate. There is some mild reticulation in the lower zones of both lungs could be related to scarring. No lobar consolidation or pleural effusion. No pneumothorax.Cardiac silhouette is normal. Visualized osseous structures arewithout acute abnormality. [facility]-[id number] Procedure Note Interface, Radiology Results Incoming - 11/24/2017 9:24 PM HALL MANAGER Study:XR CHEST 2 VW History: fever COMPARISON: None. IMPRESSION: 2 views of the chest. There is a streaky opacity in the retrocardiac region which could represent some scarring or infiltrate. There is some mild reticulation in the lower zones of both lungs could be related to scarring. No lobar consolidation or pleural effusion. No pneumothorax. Cardiac silhouette is normal. Visualized osseous structures are without acute abnormality. [facility]-[id number] after 12/17/2016 Insurance Payer Benefit Subscriber ID Type Phone Address Plan / Group [employer] [facility] xxxxxxxxx [facility] [address] [id number] [place] [id number]
--- OUTSIDE RECORDS SUMMARY | 2017-12-18 12:39 | XMS REPORT ---
Author [facility] Address Unknown Phone Unavailable Care Team Providers Care Garment Worker Name Role Phone MIKEY FLORENTINO Unavailable Unavailable Problems This patient has no known problems. Allergies, Adverse Reactions, Alerts This patient has no known allergies or adverse reactions. Medications This patient has no known medications. Results Test Description Test Time Test Comments Text Results Atomic Results Result Comments CT ABDOMEN/PELVIS W [place] [address] Patient Name: YASMINE FELIX MR #: [id number] : 1955 Age/Sex: 62/F Req #: [id number] Adm Physician: Ordered by: MIKEY FLORENTINO MD Report #: [id number] Location: ER Room/Bed: Procedure: [id number] CT/CT ABDOMEN/PELVIS W Exam Date: 11/09/17 Exam Time : 1949 REPORT STATUS: Signed EXAM: CT ABDOMEN/PELVIS W DATE: 2017 6:05 PM INDICATION: Abdominal pain COMPARISON: 05/07/2016 TECHNIQUE: The abdomen and pelvis were scanned using a multidetector helical scanner. Coronal and sagittal reformations were obtained. Routine protocol performed. IV Contrast: 100 ml Isovue 370 FINDINGS: LOWER THORAX: Mild bibasilar atelectasis. LIVER/BILIARY: Stable low-density right liver lesion , likely benign. Unchanged mild biliary ductal dilation. GALLBLADDER: Cholecystectomy. SPLEEN: Unremarkable PANCREAS: Unremarkable ADRENALS: No nodules KIDNEYS: Symmetric perfusion. Stable subcentimeter probable left inferior renal cyst. No hydronephrosis. GI TRACT: Postsurgical changes are seen status post gastric bypass and prior sigmoidectomy. No evidence of obstruction or wall thickening. Normal appendix. VESSELS: Mild to moderate atherosclerotic changes. PERITONEUM/RETROPERITONEUM: No free air or fluid LYMPH NODES: No lymphadenopathy REPRODUCTIVE ORGANS/BLADDER: Hysterectomy. Bladder is mildly distended but otherwise unremarkable. SOFT TISSUES: Unremarkable BONES: There are scattered degenerative changes, worse at L5-S1. IMPRESSION: No acute abnormality. Signed by: Dr Ash Kenny MD on 11/09/2017 8:43 PM Dictated By: ASH KENNY MD 42 Transcribed By: JENNIFER on 11/09 COPY TO: MIKEY FLORENTINO MD
[2017-12-18 13:32] LABS: BASOPHILS % 0.3 % (0.0-1.0); EOSINOPHILS # (AUTO) 0.1 (0.0-0.4); HEMATOCRIT 32.4 % (34.2-44.1); HEMOGLOBIN 10.6 g/dL (12.0-16.0); LYMPHOCYTES % 16.6 % (18.0-39.1); MEAN CORPUSCULAR HEMOGLOBIN 27.4 pg (28-32); MEAN CORPUSCULAR HGB CONC 32.7 g/dL (31-35); MEAN CORPUSCULAR VOLUME 83.7 fL (81-99); MONOCYTES # (AUTO) 0.4 (0.2-0.8); MONOCYTES % 6.9 % (4.4-11.3); NEUTROPHILS # (AUTO) 4.5 (2.1-6.9); NEUTROPHILS % 73.9 % (38.7-80.0); PLATELET COUNT 202 x10e3/uL (140-360); RED BLOOD COUNT 3.87 x10e6/uL (3.6-5.1); RED CELL DISTRIBUTION WIDTH 14.4 % (11.7-14.4)
[2017-12-18 13:53] LABS: ALANINE AMINOTRANSFERASE 6 IU/L (0-55); ALBUMIN 3.4 g/dL (3.5-5.0); ALKALINE PHOSPHATASE 78 IU/L (40-150); ANION GAP 12.2 mmol/L (8-16); BLOOD UREA NITROGEN 9 mg/dL (7-26); BUN/CREATININE RATIO 13 (6-25); CALCIUM 9.1 mg/dL (8.4-10.2); CARBON DIOXIDE 25 mmol/L (22-29); CHLORIDE 105 mmol/L (98-107); CREATININE, SERUM 0.68 mg/dL (0.57-1.11); EST GLOMERULAR FILTRATION RATE > 60 ML/MIN (60-); GLUCOSE 112 mg/dL (74-118); POTASSIUM 4.2 mmol/L (3.5-5.1); SODIUM 138 mmol/L (136-145)
[2017-12-18 13:57] LABS: MAGNESIUM 1.8 MG/DL (1.3-2.1)
[2017-12-18 14:00] LABS: BILIRUBIN,URINE NEGATIVE (NEGATIVE); KETONES,URINE NEGATIVE (NEGATIVE); LEUKOCYTE ESTERASE ,URINE 1+ (NEGATIVE); NITRITE,URINE NEGATIVE (NEGATIVE); PROTEIN,URINE DIPSTICK NEGATIVE (NEGATIVE); URINE UROBILINOGEN 0.2 mg/dL (0.2 - 1)
[2017-12-18 14:01] LABS: CLARITY,URINE CLEAR (CLEAR); COLOR,URINE YELLOW (YELLOW)
[2017-12-18 14:19] LABS: BACTERIA,URINE FEW /HPF; EPITHELIAL CELLS,URINE FEW /LPF; RBC,URINE 0-5 /HPF (0-5)
[2017-12-18 16:09] LABS: INR 1.01; PROTHROMBIN TIME 12.5 seconds (11.9-14.5)
[2017-12-18 16:10] LABS: PARTIAL THROMBOPLASTIN TIME 28.3 seconds (23.8-35.5)
[2017-12-18 16:14] LABS: CREATINE KINASE 52 IU/L (29-168)
== END 2017-12-18 19:05 | disposition left against medical advice (07) ==
LOC: ER 12:36
DX: M54.9 Dorsalgia, unspecified (principal)
CPT/HCPCS: 36415; 80053; 81001; 82150; 82550; 82553; 83690; 83735; 84484; 85025; 85610; 85730

== ENCOUNTER 2018-02-16 03:28 | Emergency (ER) | payer MEDICARE ==
[~2018-02-16] VITALS: Ht 162.6 cm; Wt 77.1 kg
[2018-02-16] MEDS ORDERED: PANTOPRAZOLE 40 MG 10ML VIAL IV STA (03:35)
[2018-02-16] MEDS ORDERED: ONDANSETRON HCL 4 MG ORAL DISINTEGRATING TAB PO ONE (03:45)
[2018-02-16 03:58] LABS: BASOPHILS % 0.5 % (0.0-1.0); EOSINOPHILS # (AUTO) 0.1 (0.0-0.4); HEMATOCRIT 35.2 % (34.2-44.1); HEMOGLOBIN 10.9 g/dL (12.0-16.0); LYMPHOCYTES # (AUTO) 1.4 (1.0-3.2); LYMPHOCYTES % 33.9 % (18.0-39.1); MEAN CORPUSCULAR HEMOGLOBIN 26.5 pg (28-32); MEAN CORPUSCULAR VOLUME 85.6 fL (81-99); MONOCYTES # (AUTO) 0.5 (0.2-0.8); MONOCYTES % 11.3 % (4.4-11.3); NEUTROPHILS # (AUTO) 2.1 (2.1-6.9); NEUTROPHILS % 52.1 % (38.7-80.0); PLATELET COUNT 187 x10e3/uL (140-360); RED BLOOD COUNT 4.11 x10e6/uL (3.6-5.1); RED CELL DISTRIBUTION WIDTH 13.4 % (11.7-14.4)
[2018-02-16 03:59] LABS: CLARITY,URINE CLEAR (CLEAR); COLOR,URINE YELLOW (YELLOW)
[2018-02-16 04:00] LABS: BILIRUBIN,URINE NEGATIVE (NEGATIVE); KETONES,URINE NEGATIVE (NEGATIVE); LEUKOCYTE ESTERASE ,URINE TRACE (NEGATIVE); NITRITE,URINE NEGATIVE (NEGATIVE); PROTEIN,URINE DIPSTICK NEGATIVE (NEGATIVE); URINE UROBILINOGEN 1 mg/dL (0.2 - 1)
[2018-02-16 04:06] LABS: EPITHELIAL CELLS,URINE FEW /LPF; TRANSITIONAL EPI CELLS,URINE FEW
[2018-02-16 04:07] LABS: BACTERIA,URINE RARE /HPF
[2018-02-16 04:18] LABS: ALANINE AMINOTRANSFERASE 13 IU/L (0-55); ALBUMIN 3.8 g/dL (3.5-5.0); ALKALINE PHOSPHATASE 90 IU/L (40-150); AMYLASE 68 U/L (25-125); ANION GAP 14.7 mmol/L (8-16); BLOOD UREA NITROGEN 10 mg/dL (7-26); BUN/CREATININE RATIO 14 (6-25); CARBON DIOXIDE 21 mmol/L (22-29); CHLORIDE 106 mmol/L (98-107); CREATINE KINASE 67 IU/L (29-168); CREATININE, SERUM 0.69 mg/dL (0.57-1.11); EST GLOMERULAR FILTRATION RATE > 60 ML/MIN (60-); GLUCOSE 94 mg/dL (74-118); LIPASE 37 U/L (8-78); POTASSIUM 4.7 mmol/L (3.5-5.1); SODIUM 137 mmol/L (136-145)
--- NOTE | 2018-02-16 05:24 | Diagnostic Imaging Report ---
EXAM: CT ABDOMEN AND PELVIS without IV CONTRAST INDICATION: Abdominal pain, nausea and vomiting COMPARISON: CT of the abdomen and pelvis November 09, 2017 TECHNIQUE: The abdomen and pelvis were scanned using a multidetector helical scanner. Coronal and sagittal reformations were obtained. Routine protocol performed. IV Contrast: None Oral Contrast: Gastrografin CTDIvol has been reviewed. It is below the limits set by the Radiation Protocol Committee (RPC). FINDINGS: LOWER THORAX: No consolidations LIVER: No masses BILIARY: Cholecystectomy. No abnormal ductal dilation. SPLEEN: No masses PANCREAS: No masses ADRENALS: No nodules RIGHT KIDNEY: No nephroureterolithiasis or hydronephrosis. LEFT KIDNEY: No nephroureterolithiasis or hydronephrosis. GI TRACT: No wall thickening or obstruction. Surgical changes of gastric bypass. Surgical sutures around the sigmoid colon. Normal appendix. VESSELS: Mild atherosclerotic changes of the abdominal aorta without aneurysm. PERITONEUM/RETROPERITONEUM: No free air or fluid LYMPH NODES: No lymphadenopathy REPRODUCTIVE ORGANS: Not visualized BLADDER: Normal SOFT TISSUES: Normal BONES: No suspicious bone lesions. IMPRESSION: No acute findings. No bowel obstruction. Signed by: Dr. Lena Nascimento M.D. on 02/16/2018 5:20 AM
[2018-02-16 05:35] VITALS: BP 153/77
== END 2018-02-16 06:00 | disposition home or self-care (01) ==
LOC: ER 03:28
DX: K29.00 Acute gastritis without bleeding (principal); N30.90 Cystitis, unspecified without hematuria; I10 Essential (primary) hypertension; M19.90 Unspecified osteoarthritis, unspecified site
CPT/HCPCS: 99283

== ENCOUNTER 2018-10-31 12:57 | Emergency (ER) | payer MEDICARE ==
[~2018-10-31] VITALS: Ht 162.6 cm; Wt 77.1 kg
--- OUTSIDE RECORDS SUMMARY | 2018-10-31 13:02 | XMS REPORT | Clinical Summary ---
Author Author [facility] Organization [facility] Address Unknown Phone Unavailable Care Team Providers Care Supervisor Shed Workers Name Role Phone Asked, No Pcp PCP Unavailable Allergies Comments Active Allergy Reactions Severity Noted Date Blisters Morphine Hives 11/24/2017 Medications End Date Status Medication Sig Dispensed Refills Start Date Active clonAZEPAM (KlonoPIN) 1 Take 1 mg by 0 MG tablet mouth every 8 (eight) hours as needed for anxiety. Active clonAZEPAM (KlonoPIN) 2 Take 2 mg by 0 MG tablet mouth every 8 (eight) hours as needed for anxiety. Active diclofenac (VOLTAREN) 1 % Apply 1 0 gel application topically every 6 (six) hours as needed (pain). Active HYDROcodone-acetaminophen Take 1 tablet 0 (NORCO) 10-325 mg per by mouth tablet every 8 (eight) hours as needed for moderate pain. Active promethazine-codeine Take 5 mL by 0 (PHENERGAN with CODEINE) mouth every 6 6.25-10 mg/5 mL syrup (six) hours as needed for cough. Active zolpidem (AMBIEN) 10 mg Take 10 mg by 0 tablet mouth nightly as needed for sleep. Active cholecalciferol, vitamin Take 1,000 0 D3, (VITAMIN D3) 1,000 Units by unit tablet mouth daily. Active ascorbic acid, vitamin C, Take 500 mg 0 (VITAMIN C) 500 MG tablet by mouth daily. Active TURMERIC ROOT EXTRACT Take 1 tablet 0 ORAL by mouth daily. 12/06/2017 amoxicillin-pot Take 1 tablet 20 tablet 0 clavulanate (AUGMENTIN) by mouth 2 8 875-125 mg per tablet (two) times a day for 10 days. 12/01/2017 methylPREDNISolone follow 21 tablet 0 (MEDROL, KERRY,) 4 mg package 8 tablet directions Active Problems Problem Noted Date Pneumonia of right middle lobe due to infectious organism 11/25/2017 Atypical pneumonia 11/25/2017 Encounters Care Team Description Date Type Specialty Anh Finney MD Joglekar, Swati, MD Patel, Althea Nielsen MD Pneumonia of right middle lobe due to infectious organism (Primary Dx) 11/24/2017 [facility] General Internal Medicine - Encounter 11/26/2017 after 10/30/2017 Social History Date Tobacco Use Types Packs/Day Years Used Never Smoker Smokeless Tobacco: Never Used Alcohol Use Drinks/Week oz/Week Comments No Sex Assigned at Date Recorded Not on file Industry Job Start Date Occupation Not on file Not on file Not on file Travel End Travel History Travel Start No recent travel history available. Last Filed Vital Signs Time Taken Vital Sign Reading 11/26/2017 4:09 PM CONSTRUCTION AND MAINTENANCE INSPECTOR Blood Pressure 135/81 11/26/2017 4:13 PM CONSTRUCTION AND MAINTENANCE INSPECTOR Pulse 97 11/26/2017 4:09 PM CONSTRUCTION AND MAINTENANCE INSPECTOR Temperature 35.9 C (96.7 F) 11/26/2017 4:09 PM CONSTRUCTION AND MAINTENANCE INSPECTOR Respiratory Rate 16 11/26/2017 4:13 PM CONSTRUCTION AND MAINTENANCE INSPECTOR Oxygen Saturation 96% - Inhaled Oxygen - Concentration 11/25/2017 7:00 AM CONSTRUCTION AND MAINTENANCE INSPECTOR Weight 83.9 kg (184 lb 16 oz) 11/24/2017 7:34 PM CONSTRUCTION AND MAINTENANCE INSPECTOR Height 162.6 cm (5' 4") 11/25/2017 7:00 AM CONSTRUCTION AND MAINTENANCE INSPECTOR Body Mass Index 31.75 Plan of Treatment Health Maintenance Due Date Last Done Comments CERVICAL CANCER SCREENING 1974 BREAST CANCER SCREENING 2003 COLON CANCER SCREENING 2003 SHINGLES VACCINES (1 of 2003 2) PNEUMOCOCCAL 2018 POLYSACCHARIDE VACCINE AGE 65 AND OVER PNEUMOCOCCAL-13 2018 INFLUENZA VACCINE 04/22/2018 Procedures Comments Procedure Name Priority Date/Time Associated Diagnosis ECG ED PRELIMINARY Routine 11/25/2017 INTERPRETATION 7:39 AM CONSTRUCTION AND MAINTENANCE INSPECTOR LACTIC ACID LEVEL, SEPSIS STAT 11/25/2017 - NOW AND REPEAT 2X EVERY 3:13 AM CONSTRUCTION AND MAINTENANCE INSPECTOR 3 HOURS ALT (SGPT) STAT 11/25/2017 3:13 AM CONSTRUCTION AND MAINTENANCE INSPECTOR AST (SGOT) STAT 11/25/2017 3:13 AM CONSTRUCTION AND MAINTENANCE INSPECTOR POTASSIUM LEVEL STAT 11/25/2017 3:13 AM CONSTRUCTION AND MAINTENANCE INSPECTOR CT CHEST WO CONTRAST STAT 11/25/2017 2:35 AM CONSTRUCTION AND MAINTENANCE INSPECTOR LACTIC ACID LEVEL, SEPSIS Timed 11/25/2017 - NOW AND REPEAT 2X EVERY 1:37 AM CONSTRUCTION AND MAINTENANCE INSPECTOR 3 HOURS BLOOD CULTURE, AEROBIC & Routine 11/25/2017 ANAEROBIC 1:00 AM CONSTRUCTION AND MAINTENANCE INSPECTOR ECG 12-LEAD Routine 11/24/2017 11:04 PM CONSTRUCTION AND MAINTENANCE INSPECTOR ZZESTIMATED GFR STAT 11/24/2017 10:43 PM CONSTRUCTION AND MAINTENANCE INSPECTOR LACTIC ACID LEVEL, SEPSIS STAT 11/24/2017 - NOW AND REPEAT 2X EVERY 10:43 PM CONSTRUCTION AND MAINTENANCE INSPECTOR 3 HOURS HC COMPLETE BLD COUNT STAT 11/24/2017 W/AUTO DIFF 10:43 PM CONSTRUCTION AND MAINTENANCE INSPECTOR COMPREHENSIVE METABOLIC STAT 11/24/2017 PANEL 10:43 PM CONSTRUCTION AND MAINTENANCE INSPECTOR BLOOD CULTURE, AEROBIC & Routine 11/24/2017 ANAEROBIC 9:43 PM CONSTRUCTION AND MAINTENANCE INSPECTOR XR CHEST 2 VW STAT 11/24/2017 9:20 PM CONSTRUCTION AND MAINTENANCE INSPECTOR after 10/30/2017 Results * ECG ED Preliminary Interpretation - NOT AN ORDER (11/25/2017 7:39 AM CONSTRUCTION AND MAINTENANCE INSPECTOR) Narrative Performed At [facility] 11/25/20171:40 AM ECG ED Preliminary Interpretation - Not an Order Performed by: ANH FINNEY Authorized by: ANH FINNEY ECG reviewed by ED Physician in the absence of a washerette machine operator: yes Previous ECG: Previous ECG:Unavailable Interpretation: Interpretation: normal Rate: ECG rate:105 ECG rate assessment: tachycardic Rhythm: Rhythm: sinus tachycardia Ectopy: Ectopy: none QRS: QRS axis:Normal QRS intervals:Normal Conduction: Conduction: normal ST segments: ST segments:Normal T waves: T waves: normal * Lactic acid level, SEPSIS - Now and repeat 2x every 3 hours (11/25/2017 3:13 AM CONSTRUCTION AND MAINTENANCE INSPECTOR) Only the most recent of 3 results within the time period is included. Lactic acid 1.2 0.5 - 2.2 mmol/L [facility] DEPARTMENT OF PATHOLOGY AND GENOMIC MEDICINE Specimen Plasma specimen Performing Organization Address [facility] Cent[facility] Phone Number [facility] [place] [address] PATHOLOGY AND GENOMIC MEDICINE * ALT (SGPT) (11/25/2017 3:13 AM CONSTRUCTION AND MAINTENANCE INSPECTOR) ALT <5 (A) 5 - 50 U/L [facility] DEPARTMENT PATHOLOGY AND GENOMIC MEDICINE Specimen Plasma specimen Performing Organization Address [facility] Phone Number [facility] [place] [address] PATHOLOGY AND GENOMIC MEDICINE * AST (SGOT) (11/25/2017 3:13 AM CONSTRUCTION AND MAINTENANCE INSPECTOR) AST 17 10 - 35 U/L [facility] DEPARTMENT PATHOLOGY AND GENOMIC MEDICINE Specimen Plasma specimen Performing Organization Address [facility] [place] [address] PATHOLOGY AND GENOMIC MEDICINE * Potassium level (11/25/2017 3:13 AM CONSTRUCTION AND MAINTENANCE INSPECTOR) Potassium 3.6 3.5 - 5.0 mEq/L [facility] DEPARTMENT OF PATHOLOGY AND GENOMIC MEDICINE Specimen Plasma specimen Performing Organization Address [facility] Phone Number [facility] [place] [address] PATHOLOGY AND GENOMIC MEDICINE * CT Chest Wo Contrast (11/25/2017 2:35 AM CONSTRUCTION AND MAINTENANCE INSPECTOR) Narrative Performed At CT CHEST WO CONTRAST RADIANT CLINICAL INDICATION: cough TECHNIQUE:Multidetector CT imaging of [...] Scattered bilateral groundglass opacities, likely atypical pneumonia. [facility]-[id number] Procedure Note [facility], Radiology Results Incoming - 11/25/2017 2:49 AM CONSTRUCTION AND MAINTENANCE INSPECTOR CT CHEST WO CONTRAST CLINICAL INDICATION: cough [...] Scattered bilateral groundglass opacities, likely atypical pneumonia. [facility]-[id number] Performing Organization Address City/[facility]/Zipcode Phone Number [facility] [address] [place] [address] * Blood culture, aerobic & anaerobic (11/25/2017 1:00 AM CONSTRUCTION AND MAINTENANCE INSPECTOR) Only the most recent of 2 results within the time period is included. Blood culture isolate No growth after [address] [facility] DEPARTMENT OF incubation. PATHOLOGY AND Comment: GENOMIC MEDICINE Specimen Information Specimen Source: Blood Specimen Site: Antecubital, right Specimen Blood - Antecubital, right Performing Organization Address City/[facility]/Zipcode Phone Number [facility] DEPARTMENT OF [address] [place] [address] PATHOLOGY AND GENOMIC MEDICINE * ECG 12 lead (11/24/2017 11:04 PM CONSTRUCTION AND MAINTENANCE INSPECTOR) Ventricular rate 105 [facility] MUSE Atrial rate 105 [facility] MUSE CT interval 156 [facility] MUSE QRSD interval 82 [facility] MUSE QT [facility] 348 [facility] MUSE QTC interval 459 [facility] P axis [address] [facility] MUSE QRS axis 1 -24 [facility] MUSE T wave axis 17 [facility] MUSE EKG impression Sinus tachycardia-Poor R wave [facility] MUSE progression- Performing Organization Address City/[facility] Phone Number [facility] [address] [place] [address] * Estimated GFR (11/24/2017 10:43 PM CONSTRUCTION AND MAINTENANCE INSPECTOR) GFR Non Af Amer >90 mL/min/1.[address] [facility] DEPARTMENT OF PATHOLOGY AND GENOMIC MEDICINE GFR Af Amer >90 mL/min/1.[address] [facility] DEPARTMENT OF Comment: PATHOLOGY AND Chronic kidney disease: <60 GENOMIC MEDICINE mL/min/1.73m2 Kidney failure: <15 mL/min/1.73m2 The estimated GFR is calculated from the IDMS-traceable Modification of Diet in Renal Disease Equation. The accuracy of the calculation is poor when the creatinine is normal. Calculated values >90 mL/min/1.73m2 are not reported. This equation has not been validated in children (<18 years), women, the elderly (>70 years), or ethnic groups other than Caucasians and Americans. Specimen Plasma specimen Performing Organization Address [facility] Phone Number [facility] [address] [place] [address] PATHOLOGY AND GENOMIC MEDICINE * CBC with platelet and differential (11/24/2017 10:43 PM CONSTRUCTION AND MAINTENANCE INSPECTOR) WBC 11.49 (H) 4.50 - 11.00 k/uL [facility] DEPARTMENT OF PATHOLOGY AND GENOMIC MEDICINE RBC 4.02 (L) 4.20 - 5.50 m/uL [facility] DEPARTMENT OF PATHOLOGY AND GENOMIC MEDICINE HGB 10.7 (L) 12.0 - 16.0 g/dL [facility] DEPARTMENT OF PATHOLOGY AND GENOMIC MEDICINE HCT 34.4 (L) 37.0 - 47.0 % [facility] DEPARTMENT OF PATHOLOGY AND GENOMIC MEDICINE MCV 85.6 82.0 - 100.[address] [facility] DEPARTMENT OF PATHOLOGY AND GENOMIC MEDICINE MCH 26.6 (L) 27.0 - 34.[address] [facility] DEPARTMENT OF PATHOLOGY AND GENOMIC MEDICINE MCHC 31.1 31.0 - 37.0 g/dL [facility] DEPARTMENT OF PATHOLOGY AND GENOMIC MEDICINE RDW - SD 47.8 37.0 - 55.[address] [facility] DEPARTMENT OF PATHOLOGY AND GENOMIC MEDICINE MPV 10.2 8.8 - 13.[address] [facility] DEPARTMENT OF PATHOLOGY AND GENOMIC MEDICINE Platelet count 250 150 - 400 k/uL [facility] DEPARTMENT OF PATHOLOGY AND GENOMIC MEDICINE Nucleated RBC 0.00 /[address] [facility] DEPARTMENT OF PATHOLOGY AND GENOMIC MEDICINE Neutrophils 80.1 (H) 39.0 - 69.0 % [facility] DEPARTMENT OF PATHOLOGY AND GENOMIC MEDICINE Lymphocytes 12.8 (L) 25.0 - 45.0 % [facility] DEPARTMENT OF PATHOLOGY AND GENOMIC MEDICINE Monocytes 5.3 0.0 - 10.0 % [facility] DEPARTMENT OF PATHOLOGY AND GENOMIC MEDICINE Eosinophils 0.7 0.0 - 5.0 % [facility] DEPARTMENT OF PATHOLOGY AND GENOMIC MEDICINE Basophils 0.2 0.0 - 1.0 % [facility] DEPARTMENT OF PATHOLOGY AND GENOMIC MEDICINE Immature granulocytes 0.9Comment: "Immature 0.0 - 1.0 % [facility] DEPARTMENT OF granulocytes" (promyelocytes, PATHOLOGY AND myelocytes, metamyelocytes) [facility] Specimen Blood Performing Organization Address City/State/Zipcode Phone Number [facility] DEPARTMENT OF [address] [place] [address] PATHOLOGY AND GENOMIC MEDICINE * Comprehensive metabolic panel (11/24/2017 10:43 PM CONSTRUCTION AND MAINTENANCE INSPECTOR) Sodium 137 135 - 148 mEq/L [facility] DEPARTMENT OF PATHOLOGY AND GENOMIC MEDICINE Potassium SEE COMMENT 3.5 - 5.0 mEq/L [facility] DEPARTMENT OF Comment: PATHOLOGY AND Footnote--------- GENOMIC MEDICINE Sample is hemolyzed. Chloride 99 98 - 112 mEq/L [facility] DEPARTMENT OF PATHOLOGY AND GENOMIC MEDICINE CO2 25 24 - 31 mEq/L [facility] DEPARTMENT OF PATHOLOGY AND GENOMIC MEDICINE Anion gap 13 7 - 15 mEq/L [facility] DEPARTMENT OF Comment: PATHOLOGY AND Starting from December [facility] MEDICINE , anion gap calculation no longer incorporates potassium. Please note the change. BUN 8 8 - 23 mg/dL [facility] DEPARTMENT OF PATHOLOGY AND GENOMIC MEDICINE Creatinine 0.5 0.5 - 0.9 mg/dL [facility] DEPARTMENT OF PATHOLOGY AND GENOMIC MEDICINE Glucose 99 65 - 99 mg/dL [facility] DEPARTMENT OF PATHOLOGY AND GENOMIC MEDICINE Calcium 8.7 (L) 8.8 - 10.2 mg/dL [facility] DEPARTMENT OF PATHOLOGY AND GENOMIC MEDICINE Protein 7.7 6.3 - 8.3 g/dL [facility] DEPARTMENT OF Comment: PATHOLOGY AND [place] GENOMIC MEDICINE 4.6-7.0 g/dL 1 week 4.4-7.6 g/dL 7 months-1year 5.1-7.3 g/dL 1-2 years5.6-7 .5 g/dL >3 years6.0-8 .0 g/dL 18-150 6.3-8.3 g/dL Albumin 3.1 (L) 3.5 - 5.0 g/dL [facility] DEPARTMENT OF PATHOLOGY AND GENOMIC MEDICINE A/G ratio 0.7 0.7 - 3.8 [facility] DEPARTMENT OF PATHOLOGY AND GENOMIC MEDICINE Alkaline phosphatase SEE COMMENTComment: 35 - 104 U/L [facility] DEPARTMENT OF Footnote--------- PATHOLOGY AND GENOMIC MEDICINE AST SEE COMMENTComment: 10 - 35 U/L [facility] DEPARTMENT OF Footnote--------- PATHOLOGY AND GENOMIC MEDICINE ALT SEE COMMENTComment: 5 - 50 U/L [facility] DEPARTMENT OF Footnote--------- PATHOLOGY AND GENOMIC MEDICINE Total bilirubin 0.6 0.0 - 1.2 mg/dL [facility] DEPARTMENT OF PATHOLOGY AND GENOMIC MEDICINE Specimen Plasma specimen Performing Organization Address City/State/Zipcode Phone Number [facility] DEPARTMENT OF [address] [place] [address] PATHOLOGY AND GENOMIC MEDICINE * XR Chest 2 Vw (11/24/2017 9:20 PM CONSTRUCTION AND MAINTENANCE INSPECTOR) Narrative Performed At Study:XR CHEST 2 VW RADIANT History: fever COMPARISON: None. IMPRESSION: 2 views of the chest.There is a streaky opacity in the retrocardiac region which could represent some scarring or infiltrate. There is some mild reticulation in the lower zones of both lungs could be related to scarring. No lobar consolidation or pleural effusion. No pneumothorax.Cardiac silhouette is normal.Visualized osseous structures arewithout acute abnormality. [facility]-[id number] Procedure Note Hm Interface, Radiology Results Incoming - 11/24/2017 9:24 PM CONSTRUCTION AND MAINTENANCE INSPECTOR Study:XR CHEST 2 VW History: fever COMPARISON: [...] Visualized osseous structures are without acute abnormality. [facility]-[id number] Performing Organization Address City/State/Zipcode Phone Number [facility] [address] [place] [address] after 10/30/2017 Insurance Payer Benefit Subscriber ID Type Phone Address Plan / Group [employer] CIGNA xxxxxxxxx HMO HE[employer]I [place] HMO MCR ADV Advance Directives Patient has advance care planning documents, and code status on file. For more i nformation, please contact: Delfin Islas [address] [place] [address] Date Inactivated Comments Code Status Date Activated 11/25/2017 1:55 PM Full Code 11/25/2017 7:39 AM Code Status decision reached by: Patient
--- NOTE | 2018-10-31 14:24 | Diagnostic Imaging Report ---
Exam: Left hip radiographs- 2 views; AP radiograph of the pelvis - 1 view Indication: Status post fall with pain to left hip. Comparison: None. Findings: Left hip: No evidence of acute fracture or malalignment. Pelvis: No evidence of acute fracture or malalignment. Mild degenerative changes of bilateral hips and pubic symphysis. Surgical clips project over the lower abdomen. Impression: No acute radiographic abnormality. Signed by: Dr. Priscilla Weinstein MD on 10/31/2018 2:20 PM
[2018-10-31] MEDS ORDERED: HYDROCODONE/APAP 5MG-325MG TAB PO NR (14:30)
--- NOTE | 2018-10-31 14:37 | Diagnostic Imaging Report ---
Exam: Head and cervical spine CTs without contrast Indication: Fall presumably from standing, hit head and passed out Comparisons: Head and cervical spine CTs 02/19/2016. Technique: Axial images were obtained from the brain and cervical spine. Coronal and sagittal images reconstructed from the axial data. Dose modulation, iterative reconstruction, and/or weight based adjustment of the mA/kV was utilized to reduce the radiation dose to as low as reasonably achievable. Intravenous contrast: None Findings: Head CT: Scalp/skull: No abnormalities. No fractures, blastic or lytic lesions. Brain sulci: Appropriate for age. Ventricles: Normal in size and configuration. No hydrocephalus. Extra-axial spaces: No masses. No fluid collections. Parenchyma: Few hypodensities of the periventricular and deep white matter, non specific and most commonly seen in mild chronic microvascular ischemic changes. No masses, hemorrhage, acute or chronic cortical vascular insults. Sellar/suprasellar region: No abnormalities. Craniocervical junction: Patent foramen magnum. No Chiari one malformation. Cervical spine CT: Airway: Patent. Fractures: None. Soft tissues: No gross abnormalities. Atlantoaxial articulation: Intact. Alignment: Normal lordosis. No scoliosis. Cervicomedullary junction: No abnormalities. Patent foramen magnum. Vertebrae: No infection or neoplasm. Degenerative changes: Moderate right foraminal stenosis at C5-C6. Mild to moderate canal stenosis at C6-C7. Otherwise, no significant degenerative changes. IMPRESSION: Head CT: 1. No acute abnormality. 2. No changes when compared to head CT dated 02/19/2016. Cervical spine CT: 1. No acute abnormalities. 2. Cannot adequately evaluate for ligament, spinal cord and or vascular abnormalities. 3. Bilateral predominant cervical spondylosis from C5 to C7. A preliminary report was provided by Dr. Luna on 10/31/2018 2:31 PM. Signed by: DR Mesfin Lee M.D. on 10/31/2018 3:34 PM
--- NOTE | 2018-10-31 14:41 | Diagnostic Imaging Report ---
Exam: Left wrist radiographs-3 views Indication: Fall with pain in the left wrist. Comparison: None. Findings: Diffuse osteopenia. No evidence of acute fracture, malalignment, or soft tissue abnormality. Moderate degenerative changes at the first carpometacarpal joint with joint space narrowing.. Impression: No acute radiographic abnormality. Diffuse osteopenia. Signed by: Dr. Priscilla Weinstein MD on 10/31/2018 2:38 PM
--- NOTE | 2018-10-31 14:45 | NUR ---
norco 5 given for back pain 07/01. pt has tolerated well before.
--- NOTE | 2018-10-31 16:08 | NUR ---
JAK ROMERO IN ROOM WITH PATIENT AT THIS TIME.
== END 2018-10-31 16:54 | disposition home or self-care (01) ==
LOC: ER 12:57
DX: S00.83XA Contusion of other part of head, initial encounter (principal); S60.212A Contusion of left wrist, initial encounter; S70.02XA Contusion of left hip, initial encounter; W01.0XXA Fall on same level from slipping, tripping and stumbling without subsequent striking against object, initial encounter; Y92.008 Other place in unspecified non-institutional (private) residence as the place of occurrence of the external cause; I10 Essential (primary) hypertension; Z98.84 Bariatric surgery status; Z98.0 Intestinal bypass and anastomosis status
CPT/HCPCS: 70450; 72125; 99284

== ENCOUNTER 2018-12-11 13:21 | Emergency (ER) | payer MEDICARE ==
[~2018-12-11] VITALS: Ht 162.6 cm; Wt 75.7 kg
--- OUTSIDE RECORDS SUMMARY | 2018-12-11 13:24 | XMS REPORT | Clinical Summary ---
Author Author [facility] Organization [facility] Address Unknown Phone Unavailable Care Team Providers Care Investigative Writer Name Role Phone Asked, No Pcp PCP [...] 1 tablet 0 ORAL by mouth daily. Active Problems Problem Noted Date Pneumonia of right middle lobe due to infectious organism 11/25/2017 Atypical pneumonia 11/25/2017 Social History Date Tobacco Use Types Packs/Day Years Used Never Smoker Smokeless Tobacco: Never Used Alcohol Use Drinks/Week oz/Week Comments No Sex Assigned at Date Recorded Not on file Industry Job Start Date Occupation Not on file Not on file Not on file Travel End Travel History Travel Start No recent travel history available. Last Filed Vital Signs Not on file Plan of Treatment Health Maintenance Due Date Last Done Comments CERVICAL CANCER SCREENING 1974 BREAST CANCER SCREENING 2003 COLON CANCER SCREENING 2003 SHINGLES VACCINES (#1) 2003 65+ PNEUMOCOCCAL VACCINE 2018 (1 of 2 - PCV13) PNEUMOCOCCAL 2018 POLYSACCHARIDE VACCINE AGE 65 AND OVER INFLUENZA VACCINE 04/22/2018 Results Not on fileafter 12/10/2017 Insurance Payer Benefit Subscriber ID Type Phone Address Plan / Group [employer] CIGNA xxxxxxxxx [facility] Advance Directives Patient has advance care planning documents, and code status on file. For more i nformation, please contact: Delfin Islas [address] [place] [address] Date Inactivated Comments Code Status Date Activated 11/25/2017 1:55 PM Full Code 11/25/2017 7:39 AM Code Status decision reached by: Patient
--- OUTSIDE RECORDS SUMMARY | 2018-12-11 13:37 | XMS REPORT | Clinical Summary ---
Author Author [facility]in [facility] Organization [facility] [facility] Address Unknown Phone Unavailable Care Team Providers Care Out Of School Hours Care Worker Name Role Phone Asked, No Pcp PCP [...] Group [employer] CIGNA xxxxxxxxx [facility]MO [facility] Advance Directives Patient has advance care planning documents, and code status on file. For more i nformation, please contact: Delfin Islas [address] [place] [address] Date Inactivated Comments Code Status Date Activated 11/25/2017 1:55 PM Full Code 11/25/2017 7:39 AM Code Status decision reached by: Patient
[2018-12-11] MEDS ORDERED: SODIUM CHLORIDE 0.9% 1000ML 1,000 ML IV SCH (17:30)
[2018-12-11] MEDS ORDERED: ONDANSETRON HCL INJ 2MG/ML 2ML 2 MG/ML VIAL IV PRN (17:30)
--- NOTE | 2018-12-11 17:56 | Diagnostic Imaging Report ---
EXAMINATION: CHEST 2 VIEWS INDICATION: Cough ^cough ^[id number] ^[id number] COMPARISON: None FINDINGS: TUBES and LINES: None. LUNGS: Lungs are well inflated. Perihilar peribronchial hazy opacity could be due to bronchitis. There is no evidence of pneumonia or pulmonary edema. PLEURA: No pleural effusion or pneumothorax. HEART AND MEDIASTINUM: The cardiomediastinal silhouette is unremarkable. BONES AND SOFT TISSUES: No acute osseous lesion. Soft tissues are unremarkable. UPPER ABDOMEN: No free air under the diaphragm. IMPRESSION: Perihilar peribronchial hazy opacity could be due to bronchitis. Signed by: Dr. Jose Chavez M.D. on 12/11/2018 5:53 PM
[2018-12-11 18:53] VITALS: BP 153/89
== END 2018-12-11 18:57 | disposition home or self-care (01) ==
LOC: ER 13:35
DX: R50.9 Fever, unspecified (principal); R05 Cough; J20.8 Acute bronchitis due to other specified organisms; Z87.19 Personal history of other diseases of the digestive system
CPT/HCPCS: 71046; 87400; 93005; 99283

== ENCOUNTER 2020-02-26 17:37 | Emergency (ER) | payer MEDICARE ==
[~2020-02-26] VITALS: Ht 162.6 cm; Wt 75.7 kg
--- OUTSIDE RECORDS SUMMARY | 2020-02-26 17:42 | XMS REPORT | Continuity of Care Document ---
Author Author [facility] t Organization [facility] Address [address] [place] [address] Phone Unavailable Care Team Providers Care Optical Element Coater Name Role Phone Fadumo SEXTON III PCP Lillie CHANDLER Attphys Unavailable Rebekah RAYMOND Attphys Unavailable Elisa FLORENTINO Attphys Unavailable ANDREW LOZA Admphys Unavailable Payers Payer Name Policy Type Policy Number Effective Date Expiration Date Kendrick Wills [facility] [id number] 2018 00:00:00 [facility] Problems Condition Name Condition Details Condition Category Status Onset Date Resolution Date Last Treatment Date Treating Clinician Comments Source Pneumonia of right middle lobe due to infectious organ ism Pneumonia of right middle lobe due to infectious organism Disease Active 2017-11-25 00:00:00 Delfin Islas Atypical pneumonia Atypical pneumonia Disease Active 2017-11-25 00:00:0 0 Delfin Islas Acute diarrhea Acute diarrhea Problem Active [facility] Chest pain Chest pain Problem Active C [facility] Chronic abdominal pain Chronic abdominal pain Problem Active 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 Hypoglycemia Hypoglycemia Problem Active [facility] Allergies, Adverse Reactions, Alerts Allergy Name Allergy Type Status Severity Reaction(s) Onset Date Inacti ve Date Treating Clinician Comments Source Morphine Propensity to adverse reactions Active Mild RASH 2017-11 00:00:00 [facility] Morphine Propensity to adverse reactions to drug Active Hives 2017-11-24 00:00:00 Blisters Delfin weber No Known Allergies DA Active U 2015-05-28 00:00:00 [facility] Social History Social Habit Start Date Stop Date Quantity Comments Source Sex Assigned At [place] alvarez Janel Alcohol intake 2017-11-25 00:00:00 2017-11-25 00:00:00 Current non-drinker of alcohol (finding) Delfin Islas Smoking Status Start Date Stop Date Source Never smoker Delfin weber Medications Ordered Medication Name Filled Medication Name Start Date Stop Da te Current Medication? Ordering Clinician Indication Dosage Frequency Signature (SIG) Comments Components Source clonAZEPAM (KlonoPIN) 1 MG tablet 2017-11-26 18:50:20 Yes 1mg Q8H Take 1 mg by mouth every 8 (eight) hours as needed for anxiety. Delfin Islas clonAZEPAM (KlonoPIN) 2 MG tablet 2017-11-26 18:50:20 Yes 2mg Q8H Take 2 mg by mouth every 8 (eight) hours as needed for anxiety. Delfin Islas diclofenac (VOLTAREN) 1 % gel 2017-11-26 18:50:20 Yes 1{application} Q6H Apply 1 application topically every 6 (six) hours as needed (haley n). Delfin Islas HYDROcodone-acetaminophen (NORCO) 10-325 mg per tablet 2017-11-26 18:50:20 Yes 1{tbl} Q8H Take 1 tablet b y mouth every 8 (eight) hours as needed for moderate pain. Delfin Islas promethazine-codeine (PHENERGAN with CODEINE) 6.25-10 mg/5 m L syrup 2017-11-26 18:50:20 Yes 5mL Q6H Take 5 mL by mouth every 6 (six) hours as needed for cough. Delfin Islas zolpidem (AMBIEN) 10 mg tablet 2017-11-26 18:50:20 Yes 10mg QD Take 10 mg by mouth nightly as needed for sleep. Delfin Isals cholecalciferol, vitamin D3, (VITAMIN D3) 1,000 unit tablet 2017-11-26 18:50:20 Yes 1000U QD Take 1,000 Units by mouth demetris Islas ascorbic acid, vitamin C, (VITAMIN C) 500 MG tablet 11-26 18:50:20 Yes 500mg QD Take 500 mg by mouth daily. Delfin Islas TURMERIC ROOT EXTRACT ORAL 2017-11-26 18:50:20 Yes 1{tbl} Take 1 tablet by mouth daily. Delfin Islas Levofloxacin (Levaquin) 500 Mg Tablet Levofloxacin (Levaquin ) 500 Mg Tablet 2017-11-11 00:00:00 Yes Hector Be Md 500 Daily [facility] Loperamide Hcl (Imodium*) 2 Mg Cap Loperamide Hcl (Imodium*) 2 Mg Cap 2017-11-11 00:00:00 Yes Hector Be Md 2 Every 6 Hours as need ed for Diarrhea [facility] Metronidazole (Flagyl) 500 Mg Tablet Metronidazole (Flagyl) 500 Mg Tablet 2017-11-11 00:00:00 Yes Hector Be Md 500 Three Time s A Day [facility] Tramadol Hcl (Ultram 50MG*) 50 Mg Tab Tramadol Hcl (Ultram 5 0MG*) 50 Mg Tab 2017-11-11 00:00:00 Yes Hector Be Md 50 Every 8 Hours as needed for Pain [facility] Clonazepam 1 Mg Tablet Clonazepam 1 Mg Tablet Yes 1 Three Times A Day [facility] Esomeprazole Magnesium (Nexium) 40 Mg Capsule.dr Oliver prazole Magnesium (Nexium) 40 Mg Capsule. Yes 40 Daily [facility] Hydrocodone Bit/Acetaminophen ([place] 10-325 Tablet) 1 Each Tablet Hydrocodone Bit/Acetaminophen ([place] 10-325 Tablet) 1 Each Tablet Yes 10 Every 4 Hours [facility] Metoprolol Succinate 25 Mg Tab.er.24h Metoprolol Succinate 25 Mg Ta b.er.24h Yes 25 As Needed [facility] Zolpidem Tartrate (Ambien) 5 Mg Tablet Zolpidem Tartrate (Ambien ) 5 Mg Tablet Yes 10 Bedtime [facility] Calcium Carbonate/Vitamin D3 (Calcium 50 0+D Tablet Chew) 1 Each Tab.chew, 2 Tab Oral Calcium Carbonate/Vitamin D3 (Calcium 50 0+D Tablet Chew) 1 Each Tab.chew, 2 Tab Oral 2016-10-07 00:00:00 No 2 Daily [facility] Clonazepam 0.5 Mg Tablet, 0.5 Mg Oral Clonazepam 0.5 Mg Tablet, 0.5 Mg Oral 2016-10-07 00:00:00 No .5 Daily [facility] Ferrous Sulfate 325 Mg Tablet, 325 Mg Oral Ferrous Sul fate 325 Mg Tablet, 325 Mg Oral 2016-02-19 00:00:00 No 325 Daily [facility] Metoprolol Tartrate 50 Mg Tablet, 50 Mg Oral Metoprolo l Tartrate 50 Mg Tablet, 50 Mg Oral 2016-02-19 00:00:00 No 50 Daily [facility] Hydrocodone Bit/Acetaminophen ([place] 5-325 Tablet) 1 E ach Tablet, 1 Each Oral Hydrocodone Bit/Acetaminophen ([place] 5-325 Tablet) 1 Each Tablet, 1 Each Oral 2015-06-23 00:00:00 No 1 Q4-6 Hrs as needed f or Pain [facility] Clomiphene Citrate (Serophene) 50 Mg Tablet, 50 Mg Ora l Clomiphene Citrate (Serophene) 50 Mg Tablet, 50 Mg Oral 2014-04-11 00:00:00 No 50 At Bedtime [facility] Clonazepam 0.5 Mg Tab.rapdis, 0.5 Mg Oral Clonazepam 0 .5 Mg Tab.rapdis, 0.5 Mg Oral 2014-04-11 00:00:00 No .5 As Needed [facility] Esomeprazole Mag Trihydrate (Nexium) 40 Mg Capsule.dr, 1 Tab Oral Esomeprazole Mag Trihydrate (Nexium) 40 Mg Capsule.dr, 1 Tab Oral 2014-04-11 00: 00:00 No 1 Daily [facility] Losartan Potassium 50 Mg Tablet, 50 Tab Oral Losartan Potassium 50 Mg Tablet, 50 Tab Oral 2014-04-11 00:00:00 No 50 Daily [facility] Metoprolol Succinate (Toprol Xl) 50 Mg Tab.sr.24h, 50 Tab Oral Metoprolol Succinate (Toprol Xl) 50 Mg Tab.sr.24h, 50 Tab Oral 2014-04-11 00:0 0:00 No 50 Daily [facility] Zolpidem Tartrate (Ambien) 10 Mg Tablet, 10 Mg Oral Zo lpidem Tartrate (Ambien) 10 Mg Tablet, 10 Mg Oral 2014-04-11 00:00:00 No 10 Bedtime [facility] Paroxetine Hcl (Paxil) 40 Mg Tablet, 1 Tab Oral Paroxe dionne Hcl (Paxil) 40 Mg Tablet, 1 Tab Oral 2013-04-19 00:00:00 No 1 Daily [facility] Quetiapine Fumarate (Seroquel) 50 Mg Tablet, 1 Tab Ora l Quetiapine Fumarate (Seroquel) 50 Mg Tablet, 1 Tab Oral 2013-04-19 00:00:00 No 1 Daily [facility] Procedures Procedure Date / Time Performed Performing Clinician [facility] e X-ray of chest, two views 2018-12-11 00:00:00 KELLI SNYDER [facility] Computed tomography of brain without radiopaque contrast 201 05-24-09 00:00:00 MARI VALENZUELA [facility] Computed tomography of cervical spine without contrast 10-31 00:00:00 MARI VALENZUELA [facility] CT of abdomen and pelvis without contrast 2018-02-16 00:00:0 0 RAMÍREZ RAYMOND [facility] Plan of Care Planned Activity Planned Date Details Comments Source Future Scheduled Test 2020-04-22 00:00:00 INFLUENZA VACCINE [code = INFLUENZA VACCINE] [facility] Future Scheduled Test 2018 00:00:00 65+ PNEUMOCOCCAL V ACCINE (1 of 2 - PCV13) [code = 65+ PNEUMOCOCCAL VACCINE (1 of 2 - PCV13)] [facility] Future Scheduled Test 2003 00:00:00 BREAST CANCER SCRE ENING [code = BREAST CANCER SCREENING] [facility] Scheduled Test 2003 00:00:00 COLONOSCOPY SCREEN ING [code = COLONOSCOPY SCREENING] Delfin Islas Future Scheduled Test 2003 00:00:00 SHINGLES VACCINES (#1) [code = SHINGLES VACCINES (#1)] Delfin Islas Encounters Start Date/Time End Date/Time Encounter [facility] ID Source 2018-12-11 13:35:00 2018-12-11 13:35:00 Registered Emergency Room 1 GLORIA CHANDLER [facility] [id number] [facility] 2018-10-31 12:57:00 2018-10-31 16:54:00 Departed Emergency Room 1 GLORIA CHANDLER [facility] [id number] [facility] 2018-02-16 03:28:00 2018-02-16 06:00:00 Departed Emergency Room 1 RAMÍREZ RAYMOND [facility] [id number] [facility] 2017-12-18 12:36:00 2017-12-18 19:05:00 Departed Emergency Room [facility] [id number] [facility] 2017-11-09 21:23:00 2017-11-11 14:01:00 Discharged Inpatient (obs) ER LIUDMILASHAGGY MIKEY [facility] [id number] [facility] Results Test Description Test Time Test Comments Results Result Comments Source SCR MAMM BILATERAL LAURA CAD DIGITAL 2019-09-30 08:42:11 - SCR MAMM BILATERAL LAURA CAD DIGITALBILATERAL DIGITAL SCREENING MAMMOGRAM 3D/2D WITH CAD: 09/28/2019CLINICAL: Asymptomatic. Digital breast tomosynthesis was performed in addition to routine CC and MLO views. Current mammographic images were evaluated by either a Tatango M-Vu or a E[employer] ImageChecker CAD (computer aided detection system). Comparison is made to exams dated 01/14/2018 mammogram, 09/23 mammogram, and 09/28/2015 mammogram - [facility] There are scattered fibroglandular tissues in both breasts. There are benign vascular calcifications and calcifications in both breasts. No suspicious mass, architectural distortion, malignant type calcification, or lymph node abnormality detected. Breast architecture is stable compared to prior exams.IMPRESSION: BENIGNThere is no mammographic evidence of malignancy. Resume annual screening mammography in one year. Malcom lynne/penrad:09/30/2019 08:42:11 Schedule Supervisor: Rayne BUTTS, Reji [facility] Imaging-FWletter sent: BIRADS 1-2 Normal Mammogram BI-RADS: 2 Benign - CT ABD PELVIS W/CONT 2019-08-24 11:54:00 Nam e: YASMINE FELIX [facility] : 1955 Age/S: 64 / F [address] [facility] Unit #: [id number] Loc: [place]en [place] [address] Phys: Nuvia Phillips MD Acct: [id number] Dis Date: Status: REG ER PHONE #: [phone] Exam Date: 08/24/2019 1055 FAX #: [phone] Reason: epigastric abd pain, nausea/vomiting, h/o ileus EXAMS: CPT CODE: [id number] CT ABD PELVIS W/CONT [id number] REASON FOR EXAM: epigastric abd pain, nausea/vomiting, h/o ileus/SBO EXAM ORDER DATE: 08/24/2019 9:41 AM Ordering M.Yrn: Nuvia Phillips MD PROCEDURE: - CT ABD PELVIS W/CONT contrast-enhanced axial CT images were acquired through the abdomen/pelvis at 5 mm intervals. Sagittal and coronal reformatted images were generated. Automated exposure control was utilized for this reduction. Phases of contrast: Venous COMPARISON: CT of the abdomen and pelvis March 11, 2019 FINDINGS: Visualized thorax: Lung bases are clear. Atherosclerotic disease is seen throughout the coronary arteries Hepatobiliary system: Prior cholecystectomy. Hepatic parenchyma is within normal limits Pancreas: Mildly atrophic Spleen: Normal Adrenal glands: Normal Genitourinary system: Prior hysterectomy. Otherwise normal Gastrointestinal tract and appendix: Postsurgical changes of gastric bypass. There are also anastomotic sutures in the pelvis suggesting subsegmental colonic resection with a colorectal anastomosis. No abnormal bowel distention and no significant colonic stool burden. Appendix is within normal limits. Abdominal vascular structures: Atherosclerotic plaques are scattered throughout the abdominal aorta Peritoneum and retroperitoneum: No free fluid or free air. No omental or mesenteric masses. No abnormal lymph nodes. Musculoskeletal structures and abdominal wall: Mild degenerative changes are present in the spine. PAGE 1 Signed Report (CONTINUED) Name: YASMINE FELIX [facility] : 1955 Age/S: 64 / F [address] [facility] Unit #: [id number] Loc: [place]en [place] [address] Phys: Nuvia Phillips MD Acct: [id number] Dis Date: Status: REG ER PHONE #: [phone] Exam Date: 08/24/2019 1055 FAX #: [phone] Reason: epigastric abd pain, nausea/vomiting, h/o ileus EXAMS: CPT CODE: [id number] CT ABD PELVIS W/CONT 81135 <Continued> IMPRESSION: No acute intra-abdominal process. Postsurgical changes of gastric bypass as well as findings suggesting segmental colonic resection with colorectal anastomosis. No abnormal distention of the bowel to suggest ileus or obstruction. Location: [facility] at 1154 Reported and signed by: Jonah Ellsworth MD CC: Nuvia Phillips MD; Enoch Sexton III, MD Technologist:Guerline Cervantes CTDI: DLP: Trnscb Date/Time: 08/24/2019 (1154) [email or web address] Orig Print D/T: S: 08/24/2019 (3329) PAGE 2 Signed Report - XR CHEST 1 V 2019-08-24 10:57:00 Name: YASMINE PURDY [facility] : 1955 Age/S:64 /F [address] [facility] Unit#:[id number] Loc: ROMEO Minor, [place]illie x [address] Phys: Nuvia Phillips MD Dis Date: PHONE #: [phone] Status: REG ER FAX #: [phone] Exam Date: 08/24/2019 Reason: epigastric abd pain EXAMS: CPT CODE: [id number] XR CHEST 1 V 05179 REASON FOR EXAM: epigastric abd pain Exam Order Date: 08/24/2019 9:41 AM Ordering M.D.: Nuvia Phillips MD PROCEDURE: - XR CHEST 1 V COMPARISON: Frontal chest x- ray August 14, 2011 FINDINGS: The lungs are clear. There is no pleural effusion or pneumothorax. Pulmonary vascularity is within normal limits. Cardiomediastinal silhouette is normal in size for technique. The mediastinal contours are within normal limits. Mild atherosclerotic disease is present in the aortic arch. Musculoskeletal structures are within normal limits. The visualized upper abdomen is within normal limits. IMPRESSION: No acute cardiopulmonary process. Location: [facility] at 1057 Reported and signed by: Jonah Ellsworth MD CC: Nuvia Phillips MD; Enoch Sexton III, MD Technologist: Guerline Cervantes Trnscrpt Data: 08/24/2019 (1057) [email or web address] Orig Print D/T: S: 08/24/2019 (5419) PAGE 1 Signed Report TROPONIN-I 2019-08-24 10:47:00 Test Item TROPONIN-I (test code = TROPI) <0.015 ng/mL 0.00-0.056 N COMPREHENSIVE METABOLIC [id number] 10:31:00* Test Item Value Reference Range Interpretation Comments SODIUM (test code = NA) 137 mmol/L 136-145 N POTASSIUM (test code = K) 4.2 mmol/L 3.5-5.1 N CHLORIDE (test code = CL) 98 mmol/L 101-109 L CARBON DIOXIDE (test code = CO2) 27.3 mmol/L 21-32 N ANION GAP (test code = GAP) 16 mmol/L 10-20 N GLUCOSE (test code = GLU) 113 mg/dL 74-106 H BLOOD UREA NITROGEN (test code = BUN) 8 mg/dL 3-21 N CREATININE (test code = CREAT) 0.69 mg/dL 0.55-1.3 N BUN/CREATININE RATIO (test code = BUN/CREA) 11.6 10-20 N TOTAL PROTEIN (test code = PROT) 8.5 g/dL 6.5-8.4 H ALBUMIN (test code = ALB) 4.1 g/dL 3.4-4.8 N GLOBULIN (test code = GLOB) 4.4 G/DL 1-10 N ALBUMIN/GLOBULIN RATIO (test code = A/G) 0.93 RATIO 0.75-1.50 N CALCIUM (test code = CA) 8.7 mg/dL 8.4-10.2 N BILIRUBIN TOTAL (test code = BILT) 0.60 mg/dL 0.0-1.0 N SGOT/AST (test code = AST) 21 U/L 6-32 N SGPT/ALT (test code = ALT) 19 U/L 12-78 N N ote: Change in REFERENCE RANGE due to new reagent method. ALKALINE PHOSPHATASE TOTAL (test code = ALKP) 87 U/L 38-126 N [id number] 10:31:00* Test Item Value Reference Range Interpretation Comments LIPASE (test code = LIP) 302 U/L 128-270 H URINALYSIS [id number] 10:28:00* Test Item Value Reference Range Interpretation Comments UA COLOR (test code = COLU) YELLOW YELLOW UA APPEARANCE (test code = APPU) HAZY CLEAR A UA GLUCOSE DIPSTICK (test code = DGLUU) norm mg/dL NEGATIVE UA BILIRUBIN DIPSTICK (test code = BILU) NEGATIVE mg/dL NEGATIVE UA KETONE DIPSTICK (test code = KETU) neg mg/dL NEGATIVE UA SPECIFIC GRAVITY (test code = SGU) 1.015 1.001-1.035 UA BLOOD DIPSTICK (test code = YOLA) 10 (Trace) Prabhakar/uL NEGATIVE A UA PH DIPSTICK (test code = ÓSCAR) 9.0 5.0-8.0 A UA PROTEIN DIPSTICK (test code = PROU) neg mg/dL Neg-15 UA UROBILINIOGEN DIPSTICK (test code = URO) norm mg/dL 0.0-0.2 UA NITRITE DIPSTICK (test code = TIFFANIE) POSITIVE NEGATIVE UA LEUKOCYTE ESTERASE DIPSTICK (test code = LEUU) 25 Nel/uL (Tra ce) uL NEGATIVE A UA WBC (test code = WBCU) 0-5 per HPF 0-5 UA RBC (test code = RBCU) 0-2 per HPF 0-5 UA EPITHELIAL CELLS (test code = EPIU) RARE per HPF Few UA BACTERIA (test code = BACU) MANY per HPF NONE UA AMORPHOUS SEDIMENT (test code = AMORU) MANY per LPF NONE Urine Source? Clean CatchCOMPREHENSIVE METABOLIC [id number] 10:20:00* Test Item Value Reference Range Interpretation Comments SODIUM (test code = NA) 137 mmol/L 136-145 N POTASSIUM (test code = K) 4.2 mmol/L 3.5-5.1 N CHLORIDE (test code = CL) 98 mmol/L 101-109 L CARBON DIOXIDE (test code = CO2) 27.3 mmol/L 21-32 N ANION GAP (test code = GAP) 16 mmol/L 10-20 N GLUCOSE (test code = GLU) 113 mg/dL 74-106 H BLOOD UREA NITROGEN (test code = BUN) 8 mg/dL 3-21 N CREATININE (test code = CREAT) 0.69 mg/dL 0.55-1.3 N BUN/CREATININE RATIO (test code = BUN/CREA) 11.6 10-20 N TOTAL PROTEIN (test code = PROT) gram/dL 6.4-8.2 ALBUMIN (test code = ALB) g/dL 3.4-5.0 GLOBULIN (test code = GLOB) g/dL 2.7-4.2 ALBUMIN/GLOBULIN RATIO (test code = A/G) 0.75-1.50 CALCIUM (test code = CA) 8.7 mg/dL 8.4-10.2 N BILIRUBIN TOTAL (test code = BILT) mg/dL 0.2-1.2 SGOT/AST (test code = AST) IUnit/L 15-37 SGPT/ALT (test code = ALT) U/L 10-69 ALKALINE PHOSPHATASE TOTAL (test code = ALKP) IUnit/L 45-117 [id number] 10:20:00* Test Item Value Reference Range Interpretation Comments LIPASE (test code = LIP) Unit/L 144-286 URINALYSIS [id number] 09:48:00* Test Item Value Reference Range Interpretation Comments UA COLOR (test code = COLU) YELLOW YELLOW UA APPEARANCE (test code = APPU) CLEAR UA GLUCOSE DIPSTICK (test code = DGLUU) norm mg/dL NEGATIVE UA BILIRUBIN DIPSTICK (test code = BILU) NEGATIVE mg/dL NEGATIVE UA KETONE DIPSTICK (test code = KETU) neg mg/dL NEGATIVE UA SPECIFIC GRAVITY (test code = SGU) 1.015 1.001-1.035 UA BLOOD DIPSTICK (test code = YOLA) 10 (Trace) Prabhakar/uL NEGATIVE A UA PH DIPSTICK (test code = ÓSCAR) 9.0 5.0-8.0 A UA PROTEIN DIPSTICK (test code = PROU) neg mg/dL Neg-15 UA UROBILINIOGEN DIPSTICK (test code = URO) norm mg/dL 0.0-0.2 UA NITRITE DIPSTICK (test code = TIFFANIE) POSITIVE NEGATIVE UA LEUKOCYTE ESTERASE DIPSTICK (test code = LEUU) 25 Nel/uL (Tra ce) uL NEGATIVE A UA WBC (test code = WBCU) per HPF 0-5 UA RBC (test code = RBCU) per HPF 0-5 UA EPITHELIAL CELLS (test code = EPIU) per HPF Few UA BACTERIA (test code = BACU) per HPF NONE Urine Source? Clean CatchCBC W/AUTO [id number] 09:46:00* Test Item Value Reference Range Interpretation Comments WHITE BLOOD CELL (test code = WBC) 4.2 K/mm3 4.5-12.5 L RED BLOOD CELL (test code = RBC) 4.96 mill/mm3 3.7-5.2 N HEMOGLOBIN (test code = HGB) 13.0 gram/dL 11.5-15.5 N HEMATOCRIT (test code = HCT) 41.1 % 36.0-46.0 N MEAN CELL VOLUME (test code = MCV) 82.9 fL 80-98 N MEAN CELL HGB (test code = MCH) 26.2 picogram 27.0-33.0 L MEAN CELL HGB CONCETRATION (test code = MCHC) 31.6 gram/dL 33.0-36. 0 L RED CELL DISTRIBUTION WIDTH (test code = RDW) 13.9 % 11.6-16. 2 N RED CELL DISTRIBUTION WIDTH SD (test code = RDW-SD) 42.9 fL 37 .0-51.0 N PLATELET COUNT (test code = PLT) 270 K/mm3 150-450 N MEAN PLATELET VOLUME (test code = MPV) 10.0 fL 6.7-11.0 N NEUTROPHIL % (test code = NT%) 60.2 % 39.0-69.0 N LYMPHOCYTE % (test code = LY%) 29.8 % 25.0-55.0 N MONOCYTE % (test code = MO%) 9.1 % 0.0-10.0 N EOSINOPHIL % (test code = EO%) 0.2 % 0.0-5.0 N BASOPHIL % (test code = BA%) 0.7 % 0.0-1.0 N NEUTROPHIL # (test code = NT#) 2.52 K/mm3 1.8-7.7 N LYMPHOCYTE # (test code = LY#) 1.25 K/mm3 1.0-5.0 N MONOCYTE # (test code = MO#) 0.38 K/mm3 0-0.8 N EOSINOPHIL # (test code = EO#) 0.01 K/mm3 0.0-0.5 N BASOPHIL # (test code = BA#) 0.03 K/mm3 0.0-0.2 N MANUAL DIFF REQUIRED (test code = MDIFF) NO URINALYSIS [id number] 20:01:00* Test Item Value Reference Range Interpretation Comments UA COLOR (test code = COLU) YELLOW YELLOW UA APPEARANCE (test code = APPU) CLEAR CLEAR UA GLUCOSE DIPSTICK (test code = DGLUU) norm mg/dL NEGATIVE UA BILIRUBIN DIPSTICK (test code = BILU) NEGATIVE mg/dL NEGATIVE UA KETONE DIPSTICK (test code = KETU) 5 (Trace) mg/dL NEGATIVE A UA SPECIFIC GRAVITY (test code = SGU) 1.010 1.001-1.035 UA BLOOD DIPSTICK (test code = YOLA) neg Prabhakar/uL NEGATIVE UA PH DIPSTICK (test code = ÓSCAR) 6.5 5.0-8.0 UA PROTEIN DIPSTICK (test code = PROU) neg mg/dL Neg-15 UA UROBILINIOGEN DIPSTICK (test code = URO) norm mg/dL 0.0-0.2 UA NITRITE DIPSTICK (test code = TIFFANIE) NEGATIVE NEGATIVE UA LEUKOCYTE ESTERASE DIPSTICK (test code = LEUU) 100 Nel/uL (1+) u L NEGATIVE A UA WBC (test code = WBCU) 3-5 per HPF 0-5 UA RBC (test code = RBCU) 0-2 per HPF 0-5 UA EPITHELIAL CELLS (test code = EPIU) Few (2-5/hpf) per HPF Few UA BACTERIA (test code = BACU) FEW per HPF NONE Urine Source? Clean CatchBASIC METABOLIC [id number] 19:45:00* Test Item Value Reference Range Interpretation Comments SODIUM (test code = NA) 132 mmol/L 135-148 L POTASSIUM (test code = K) 4.1 mmol/L 3.5-5.1 N CHLORIDE (test code = CL) 97 mmol/L 101-109 L CARBON DIOXIDE (test code = CO2) 30.4 mmol/L 21-32 N ANION GAP (test code = GAP) 9 mmol/L 10-20 L GLUCOSE (test code = GLU) 84 mg/dL 74-106 N BLOOD UREA NITROGEN (test code = BUN) 17 mg/dL 3-21 N GLOMERULAR FILTRATION RATE (test code = GFR) > 60 mL/min >=60 Estimated GFR by using Modified MDRD formula.Chronic kidney disease is defined as either kidney damageor GFR <60 mL/min/1.73 m2 for >3 months. CREATININE (test code = CREAT) 0.67 mg/dL 0.55-1.3 N BUN/CREATININE RATIO (test code = BUN/CREA) 25.4 10-20 H CALCIUM (test code = CA) 9.2 mg/dL 8.4-10.2 N HEPATIC FUNCTION [id number] 19:45:00* Test Item Value Reference Range Interpretation Comments TOTAL PROTEIN (test code = PROT) 6.6 g/dL 6.5-8.4 N ALBUMIN (test code = ALB) 3.3 g/dL 3.4-4.8 L GLOBULIN (test code = GLOB) 3.3 G/DL 1-10 N ALBUMIN/GLOBULIN RATIO (test code = A/G) 1.0 RATIO 0.75-1.50 N BILIRUBIN TOTAL (test code = BILT) 0.40 mg/dL 0.0-1.0 N BILIRUBIN DIRECT (test code = BILD) 0.10 mg/dL 0.0-0.30 N SGOT/AST (test code = AST) 27 U/L 6-32 N SGPT/ALT (test code = ALT) 24 U/L 12-78 N N ote: Change in REFERENCE RANGE due to new reagent method. ALKALINE PHOSPHATASE TOTAL (test code = ALKP) 90 U/L 38-126 N [id number] 19:45:00* Test Item Value Reference Range Interpretation Comments LIPASE (test code = LIP) 271 U/L 128-270 H BASIC METABOLIC [id number] 19:35:00* Test Item Value Reference Range Interpretation Comments SODIUM (test code = NA) 132 mmol/L 135-148 L POTASSIUM (test code = K) 4.1 mmol/L 3.5-5.1 N CHLORIDE (test code = CL) 97 mmol/L 101-109 L CARBON DIOXIDE (test code = CO2) 30.4 mmol/L 21-32 N ANION GAP (test code = GAP) 9 mmol/L 10-20 L GLUCOSE (test code = GLU) 84 mg/dL 74-106 N BLOOD UREA NITROGEN (test code = BUN) 17 mg/dL 3-21 N GLOMERULAR FILTRATION RATE (test code = GFR) > 60 mL/min >=60 Estimated GFR by using Modified MDRD formula.Chronic kidney disease is defined as either kidney damageor GFR <60 mL/min/1.73 m2 for >3 months. CREATININE (test code = CREAT) 0.67 mg/dL 0.55-1.3 N BUN/CREATININE RATIO (test code = BUN/CREA) 25.4 10-20 H CALCIUM (test code = CA) 9.2 mg/dL 8.4-10.2 N HEPATIC FUNCTION [id number] 19:35:00* Test Item Value Reference Range Interpretation Comments TOTAL PROTEIN (test code = PROT) gram/dL 6.4-8.2 ALBUMIN (test code = ALB) g/dL 3.4-5.0 GLOBULIN (test code = GLOB) g/dL 2.7-4.2 ALBUMIN/GLOBULIN RATIO (test code = A/G) 0.75-1.50 BILIRUBIN TOTAL (test code = BILT) mg/dL 0.2-1.2 BILIRUBIN DIRECT (test code = BILD) mg/dL 0.0-0.20 SGOT/AST (test code = AST) IUnit/L 15-37 SGPT/ALT (test code = ALT) U/L 10-69 ALKALINE PHOSPHATASE TOTAL (test code = ALKP) IUnit/L 45-117 [id number] 19:35:00* Test Item Value Reference Range Interpretation Comments LIPASE (test code = LIP) Unit/L 144-286 CBC W/O [id number] 19:24:00* Test Item Value Reference Range Interpretation Comments WHITE BLOOD CELL (test code = WBC) 5.2 K/mm3 4.5-12.5 N RED BLOOD CELL (test code = RBC) 4.54 mill/mm3 3.7-5.2 N HEMOGLOBIN (test code = HGB) 12.1 gram/dL 11.5-15.5 N HEMATOCRIT (test code = HCT) 37.9 % 36.0-46.0 N MEAN CELL VOLUME (test code = MCV) 83.5 fL 80-98 N MEAN CELL HGB (test code = MCH) 26.7 picogram 27.0-33.0 L MEAN CELL HGB CONCETRATION (test code = MCHC) 31.9 gram/dL 33.0-36. 0 L RED CELL DISTRIBUTION WIDTH (test code = RDW) 13.7 % 11.6-16. 2 N RED CELL DISTRIBUTION WIDTH SD (test code = RDW-SD) 42.3 fL 37 .0-51.0 N PLATELET COUNT (test code = PLT) 254 K/mm3 150-450 N MEAN PLATELET VOLUME (test code = MPV) 9.6 fL 6.7-11.0 N - CT ABD PELVIS [id number] 11:21:00 Name: YASMINE FELIX [facility] : 1955 Age/S: 64 / F [address] [facility] Unit #: [id number] Loc: [place] [address] Phys: Kannan Jiménez MD Acct: [id number] Dis Date: Status: REG ER PHONE #: [phone] Exam Date: 03/11/2019 1100 FAX #: [phone] Reason: upper abdominal pain, hx obstructions EXAMS: CPT CODE: [id number] CT ABD PELVIS W/CONT 33185 TECHNIQUE: - CT ABD PELVIS W/CONT . This exam was performed using one or more of the following dose reduction techniques: Automated exposure control, adjustment of the mA and/ or kV according to patient size or use of iterative reconstruction technique. COMPARISON: CT abdomen and pelvis 02/14/2018 HISTORY: 64 years Female upper abdominal pain, hx obstructions FINDINGS: CT ABDOMEN: Included lung bases and visualized lower mediastinum: Lower lung field atelectasis.. No significant abnormality in the visualized lower mediastinum. Liver: Normal in size and density. No focal lesions. Gallbladder and biliary ducts: Cholecystectomy. No intra-or extrahepatic biliary ductal dilatation. Spleen: Normal in size and density. No focal lesions. Adrenals: No adrenal nodules or enlargement. Pancreas: No focal lesion, calcifications, pancreatic duct dilatation, or peripancreatic fluid collections. Right kidney: Normal in position and size. No stones. No hydronephrosis. No focal lesions. Left kidney: Normal in position and size. No stones. No hydronephrosis. Sub-5 mm hypodensities left kidney too small to characterize. GI structures: No small or large bowel dilatation. No small or large bowel wall thickening. Prior surgical changes involving multiple PAGE 1 Signed Report (CONTINUED) Name: YASMINE FELIX [facility] : 1955 Age/S: 64 / F [address] [facility] Unit #: [id number] Loc: [place] [address] Phys: Kannan Jiménez MD Acct: [id number] Dis Date: Status: REG ER PHONE #: [phone] Exam Date: 03/11/2019 1100 FAX #: [phone] Reason: upper abdominal pain, hx obstructions EXAMS: CPT CODE: [id number] CT ABD PELVIS W/CONT 20429 < Continued> loops of bowel ,no evidence of obstruction. Retroperitoneum and mesentery: No significant lymphadenopathy. No free fluid. No free air. No mesenteric abnormalities. No retroperitoneal abnormality. Abdominal wall: No abdominal wall hernia. Vascular structures: Age appropriate. No aneurysm. Osseous structures: Age appropriate. Soft tissues and musculoskeletal structures: No significant findings. CT PELVIS: The urinary bladder is partially distended and appears unremarkable from this exam. No abnormalities in pelvic viscera. No significant lymphadenopathy. No free fluid. No inflammatory changes. No inguinal abnormalities. IMPRESSION: Prior surgical changes involving multiple loops of bowel ,no evidence of obstruction. Cholecystectomy. Sub-5 mm hypodensities left kidney too small to characterize. at 1121 Reported and signed by: Haile Rose M.D. CC: Kannan Jiménez MD; Foreign Rizo Technologist:ALE MAGANA, RT(R),CT CTDI: DLP: Trnscb Date/Time: 03/11/2019 (1121) t.[email or web address] Orig Print D/T: S: 03/11/2019 (9011) PAGE 2 Signed Report BASIC METABOLIC [id number] 10:16:00* Test Item Value Reference Range Interpretation Comments SODIUM (test code = NA) 134 mmol/L 136-145 L POTASSIUM (test code = K) 3.9 mmol/L 3.5-5.1 N CHLORIDE (test code = CL) 98 mmol/L 101-109 L CARBON DIOXIDE (test code = CO2) 25.2 mmol/L 21-32 N ANION GAP (test code = GAP) 15 mmol/L 10-20 N GLUCOSE (test code = GLU) 133 mg/dL 74-106 H BLOOD UREA NITROGEN (test code = BUN) 15 mg/dL 3-21 N GLOMERULAR FILTRATION RATE (test code = GFR) > 60 mL/min >=60 Estimated GFR by using Modified MDRD formula.Chronic kidney disease is defined as either kidney damageor GFR <60 mL/min/1.73 m2 for >3 months. CREATININE (test code = CREAT) 0.74 mg/dL 0.55-1.3 N BUN/CREATININE RATIO (test code = BUN/CREA) 20.3 10-20 H CALCIUM (test code = CA) 9.0 mg/dL 8.4-10.2 N HEPATIC FUNCTION [id number] 10:16:00* Test Item Value Reference Range Interpretation Comments TOTAL PROTEIN (test code = PROT) 8.2 g/dL 6.5-8.4 N ALBUMIN (test code = ALB) 3.8 g/dL 3.4-4.8 N GLOBULIN (test code = GLOB) 4.4 G/DL 1-10 N ALBUMIN/GLOBULIN RATIO (test code = A/G) 0.86 RATIO 0.75-1.50 N BILIRUBIN TOTAL (test code = BILT) 1.00 mg/dL 0.0-1.0 N BILIRUBIN DIRECT (test code = BILD) 0.30 mg/dL 0.0-0.30 N SGOT/AST (test code = AST) 23 U/L 6-32 N SGPT/ALT (test code = ALT) 18 U/L 12-78 N N ote: Change in REFERENCE RANGE due to new reagent method. ALKALINE PHOSPHATASE TOTAL (test code = ALKP) 109 U/L 38-126 N [id number] 10:16:00* Test Item Value Reference Range Interpretation Comments LIPASE (test code = LIP) 200 U/L 128-270 N URINALYSIS [id number] 10:04:00* Test Item Value Reference Range Interpretation Comments UA COLOR (test code = COLU) YELLOW YELLOW UA APPEARANCE (test code = APPU) CLEAR CLEAR UA GLUCOSE DIPSTICK (test code = DGLUU) norm mg/dL NEGATIVE UA BILIRUBIN DIPSTICK (test code = BILU) 1 mg/dL NEGATIVE A UA KETONE DIPSTICK (test code = KETU) 50 (2+) mg/dL NEGATIVE A UA SPECIFIC GRAVITY (test code = SGU) 1.020 1.001-1.035 UA BLOOD DIPSTICK (test code = YOLA) 25 (1+) Prabhakar/uL NEGATIVE A UA PH DIPSTICK (test code = ÓSCAR) 6.0 5.0-8.0 UA PROTEIN DIPSTICK (test code = PROU) 30 (1+) mg/dL Neg-15 A UA UROBILINIOGEN DIPSTICK (test code = URO) norm mg/dL 0.0-0.2 UA NITRITE DIPSTICK (test code = TIFFANIE) NEGATIVE NEGATIVE UA LEUKOCYTE ESTERASE DIPSTICK (test code = LEUU) 500 Nel/uL (3+) u L NEGATIVE A UA WBC (test code = WBCU) 20-30 per HPF 0-5 A UA RBC (test code = RBCU) 0-3 per HPF 0-5 UA EPITHELIAL CELLS (test code = EPIU) None seen per HPF Few UA BACTERIA (test code = BACU) FEW per HPF NONE Urine Source? Clean CatchCBC W/O [id number] 10:01:00* Test Item Value Reference Range Interpretation Comments WHITE BLOOD CELL (test code = WBC) 7.4 K/mm3 4.5-12.5 N RED BLOOD CELL (test code = RBC) 5.41 mill/mm3 3.7-5.2 H HEMOGLOBIN (test code = HGB) 14.1 gram/dL 11.5-15.5 N HEMATOCRIT (test code = HCT) 44.0 % 36.0-46.0 N MEAN CELL VOLUME (test code = MCV) 81.3 fL 80-98 N MEAN CELL HGB (test code = MCH) 26.1 picogram 27.0-33.0 L MEAN CELL HGB CONCETRATION (test code = MCHC) 32.0 gram/dL 33.0-36. 0 L RED CELL DISTRIBUTION WIDTH (test code = RDW) 13.8 % 11.6-16. 2 N RED CELL DISTRIBUTION WIDTH SD (test code = RDW-SD) 41.5 fL 37 .0-51.0 N PLATELET COUNT (test code = PLT) 332 K/mm3 150-450 N MEAN PLATELET VOLUME (test code = MPV) 9.7 fL 6.7-11.0 N URINALYSIS [id number] 10:01:00* Test Item Value Reference Range Interpretation Comments UA COLOR (test code = COLU) YELLOW YELLOW UA APPEARANCE (test code = APPU) CLEAR CLEAR UA GLUCOSE DIPSTICK (test code = DGLUU) norm mg/dL NEGATIVE UA BILIRUBIN DIPSTICK (test code = BILU) 1 mg/dL NEGATIVE A UA KETONE DIPSTICK (test code = KETU) 50 (2+) mg/dL NEGATIVE A UA SPECIFIC GRAVITY (test code = SGU) 1.020 1.001-1.035 UA BLOOD DIPSTICK (test code = YOLA) 25 (1+) Prabhakar/uL NEGATIVE A UA PH DIPSTICK (test code = ÓSCAR) 6.0 5.0-8.0 UA PROTEIN DIPSTICK (test code = PROU) 30 (1+) mg/dL Neg-15 A UA UROBILINIOGEN DIPSTICK (test code = URO) norm mg/dL 0.0-0.2 UA NITRITE DIPSTICK (test code = TIFFANIE) NEGATIVE NEGATIVE UA LEUKOCYTE ESTERASE DIPSTICK (test code = LEUU) 500 Nel/uL (3+) u L NEGATIVE A UA WBC (test code = WBCU) per HPF 0-5 UA RBC (test code = RBCU) per HPF 0-5 UA EPITHELIAL CELLS (test code = EPIU) per HPF Few UA BACTERIA (test code = BACU) per HPF NONE Urine Source? Clean CatchCHEST 2 [id number] 17:52:00 [place] [address] Patient Name: YASMINE FELIX MR #: [id number] : 1955 Age/Sex: 63/F Req #: [id number] Adm Physician: Ordered by: KELLI SNYDER NP Report #: [id number] Location: ER Room/Bed: Procedure: [id number] DX/CHEST 2 VIEWS Exam Date: 12/11/18 Exam Time: 1725 REPORT STATUS: Signed EXAMINATION: CHEST 2 VIEWS INDICATION: Cough cough [id number] COMPARISON: None FINDINGS: TUBES and LINES: None. LUNGS: Cristofer gs are well inflated. Perihilar peribronchial hazy opacity could be due to br onchitis. There is no evidence of pneumonia or pulmonary edema. PLEURA: No pleural effusion or pneumothorax. HEART AND MEDIASTINUM: The cardiomedi astinal silhouette is unremarkable. BONES AND SOFT TISSUES: No acute o sseous lesion. Soft tissues are unremarkable. UPPER ABDOMEN: No free air under the diaphragm. IMPRESSION: Perihilar peribronchial hazy opaci ty could be due to bronchitis. Signed by: Dr. Royal Chavez M.D. on 2018 5:53 PM Dictated By: ROYAL CHAVEZ MD, MD 52 Transcribed By: JENNIFER on 12/11/181752 COPY TO: KELLI SNYDER [place] Influenza Virus Types A,B Antigen 2018-12-11 17:41:00* Test Item Value Reference Range Interpretation Comments Influenza Virus Types A,B Antigen (test code = 81104-0) NEGATIVE NEGATIVE [facility] [id number] 14:36:00 [facility] [address] [place] [address] Patient Name: YASMINE FELIX MR #: [id number] : 1955 Age/Sex: 63/F Req #: [id number] Adm Physician: Ordered by: MARI VALENZUELA [place] Report #: [id number] Location: ER Room/Bed: Procedure: [id number] DX/WR IST COMPLETE LEFT Exam Date: 10/31/18 Exam Time: 140 5 REPORT STATUS: Signed Exam: Le ft wrist radiographs-3 views Indication: Fall with pain in the left wrist. Comparison: None. Findings: Diffuse osteopenia. No evidence of acu te fracture, malalignment, or soft tissue abnormality. Moderate degenerative c hanges at the first carpometacarpal joint with joint space narrowing.. Im pression: No acute radiographic abnormality. Diffuse osteopenia. Sig ibeth by: Dr. Spike Paz MD on 10/31/2018 2:38 PM Dictated By: SPIKE PAZ MD 143 Transcribed By: OLIVIA ARCE on 10/31/18 1438 COPY TO: MARI VALENZUELA [place] CT CERVICAL SPINE [id number] 14:25:00 [place] [address] Patient Name: YASMINE FELIX MR #: [id number] : 1955 Age/Sex: 63/F Req #: [id number] Adm Physician: Ordered by: MARI VALENZUELA [place] Report #: [id number] Location: ER Room/Bed: Procedure: [id number] CT/CT CERVICAL SPINE WO Exam Date: 10/31/18 Exam Time: 13 45 REPORT STATUS: Signed Exam: H ead and cervical spine CTs without contrast Indication: Fall presumably from s tanding, hit head and passed out Comparisons: Head and cervical spine CTs 02/18. Technique: Axial images were obtained from the brain and cervical spine. Coronal and sagittal images reconstructed from the axial data. Dose modulation, iterative reconstruction, and/or weight based adjustment of the m A/kV was utilized to reduce the radiation dose to as low as reasonably achiev able. Intravenous contrast: None Findings: Head CT: Scalp/sk ull: No abnormalities. No fractures, blastic or lytic lesions. Brain sul ci: Appropriate for age. Ventricles: Normal in size and configuration. No hydr ocephalus. Extra-axial spaces: No masses. No fluid collections. Pa renchyma: Few hypodensities of the periventricular and deep white matter, non specific and most commonly seen in mild chronic microvascular ischemic change s. No masses, hemorrhage, acute or chronic cortical vascular insults. Se llar/suprasellar region: No abnormalities. Craniocervical junction: Patent for amen magnum. No Chiari one malformation. Cervical spine CT: Airway: P atent. Fractures: None. Soft tissues: No gross abnormalities. Atlant oaxial articulation: Intact. Alignment: Normal lordosis. No scoliosis. Cervi comedullary junction: No abnormalities. Patent foramen magnum. Vertebrae: No infection or neoplasm. Degenerative changes: Moderate right foramin al stenosis at C5-C6. Mild to moderate canal stenosis at C6-C7. Otherwise, n o significant degenerative changes. IMPRESSION: Head CT: 1. No acut e abnormality. 2. No changes when compared to head CT dated 02/19/2016. C ervical spine CT: 1. No acute abnormalities. 2. Cannot adequately evaluat e for ligament, spinal cord and or vascular abnormalities. 3. Bilateral pre dominant cervical spondylosis from C5 to C7. A preliminary report was provi ded by Dr. Luna on 10/31/2018 2:31 PM. Signed by: DR Mesfin Lee M.D. on 10/31/2018 3:34 PM Dictated By: MESFIN VELARDE MD Electronical ly Signed By: MESFIN VELARDE MD on 10/31/18 153 Transcribed By: JENNIFER on 10/31/18 1534 COPY TO: MARI VALENZUELA [place] CT BRAIN [id number] 14:25:00 [place] [address] Patient Name: YASMINE FELIX MR #: [id number] : 1955 Age/Sex: 63/F Req #: [id number] Adm Physician: Ordered by: MARI VALENZUELA [place] Report #: [id number] Location: ER Room/Bed: Procedure: [id number] CT/CT BRAIN WO Exam Date: 10/31/18 Exam Time: 1345 REPORT STATUS: Signed Exam: Head and c ervical spine CTs without contrast Indication: Fall presumably from standing, hit head and passed out Comparisons: Head and cervical spine CTs 02/19/2016. Technique: Axial images were obtained from the brain and cervical spine. Coronal and sagittal images reconstructed from the axial data. Dose modulatio n, iterative reconstruction, and/or weight based adjustment of the mA/kV was utilized to reduce the radiation dose to as low as reasonably achievable. Intravenous contrast: None Findings: Head CT: Scalp/skull: No abnormalities. No fractures, blastic or lytic lesions. Brain sulci: Appro priate for age. Ventricles: Normal in size and configuration. No hydrocephalus . Extra-axial spaces: No masses. No fluid collections. Parenchyma: Few hypodensities of the periventricular and deep white matter, non specific and most commonly seen in mild chronic microvascular ischemic changes. No masses, hemorrhage, acute or chronic cortical vascular insults. Sellar/supr asellar region: No abnormalities. Craniocervical junction: Patent foramen magn um. No Chiari one malformation. Cervical spine CT: Airway: Patent. Fractures: None. Soft tissues: No gross abnormalities. Atlantoaxial ar ticulation: Intact. Alignment: Normal lordosis. No scoliosis. Cervicomedulla ry junction: No abnormalities. Patent foramen magnum. Vertebrae: No infe ction or neoplasm. Degenerative changes: Moderate right foraminal stenos is at C5-C6. Mild to moderate canal stenosis at C6-C7. Otherwise, no signifi cant degenerative changes. IMPRESSION: Head CT: 1. No acute abnorma lity. 2. No changes when compared to head CT dated 02/19/2016. Cervical s pine CT: 1. No acute abnormalities. 2. Cannot adequately evaluate for lig ament, spinal cord and or vascular abnormalities. 3. Bilateral predominant cervical spondylosis from C5 to C7. A preliminary report was provided by Dr Denisse Luna on 10/31/2018 2:31 PM. Signed by: DR Mesfin Lee M.D. on 3:34 PM Dictated By: MESFIN VELARDE MD 1534 Transcribed By: JENNIFER on 10/31/18 1534 COPY TO: MARI VALENZUELA [place] HIP LEFT 2-3 VW (+/- PELVIS) 2018-10-31 14:18:00 [place] [address] Patient Name: YASMINE FELIX MR #: [id number] : 1955 Age/Sex: 63/F Req #: [id number] Adm Physician: Ordered by: MARI VALENZUELA NP Report #: [id number] Location: ER Room/Bed: Procedure: [id number] DX/HI P LEFT 2-3 VW (+/- PELVIS) Exam Date: Exam Time: REPORT STATUS: Signed Exam: L eft hip radiographs- 2 views; AP radiograph of the pelvis - 1 view Indicati on: Status post fall with pain to left hip. Comparison: None. Finding s: Left hip: No evidence of acute fracture or malalignment. Pelvis: No evidence of acute fracture or malalignment. Mild degenerative changes of b ilateral hips and pubic symphysis. Surgical clips project over the lower ab domen. Impression: No acute radiographic abnormality. Signed by: Dr. Spike Paz MD on 10/31/2018 2:20 PM Dictated By: SPIKE PAZ MD Electr onically Signed By: SPIKE PAZ MD on 10/31/18 1420 Transcribed By: JENNIFER on 0 10/31/18 1420 COPY TO: MARI VALENZUELA [place] Troponin [id number] 05:02:00* Test Item Value Reference Range Interpretation Comments Troponin I (test code = LUI3939) -0.001 0-0.300 [place] [id number] 05:02:00* Test Item Value Reference Range Interpretation Comments Troponin I (test code = XFP2742) < 0.001 0-0.300 [place] [id number] 05:02:00* Test Item Value Reference Range Interpretation Comments Troponin I (test code = MER3810) < 0.001 0-0.300 [facility]2018-05-28 04:28:00* Test Item Value Reference Range Interpretation Comments Sodium Level (test code = 2951-2) 137 136-145 [facility]2018-05-28 04:28:00* Test Item Value Reference Range Interpretation Comments Potassium Level (test code = 2823-3) 4.7 3.5-5.1 [facility] CenterChloride [id number] 04:28:00* Test Item Value Reference Range Interpretation Comments Chloride Level (test code = 2075-0) 106 98-107 [facility] CenterCarbon Dioxide [id number] 04:28:00* Test Item Value Reference Range Interpretation Comments Carbon Dioxide Level (test code = 2028-9) 21 22-29 L [facility] CenterAnion [id number] 04:28:00* Test Item Value Reference Range Interpretation Comments Anion Gap (test code = 59625-7) 14.7 8-16 [facility] CenterBlood Urea Bkhoeayg8922-25-47 04:28:00* Test Item Value Reference Range Interpretation Comments Blood Urea Nitrogen (test code = 3094-0) 10 7-26 [facility] CenterCreatinine2018-05-28 04:28:00* Test Item Value Reference Range Interpretation Comments Creatinine (test code = 2160-0) 0.69 0.57-1.11 [facility] CenterBUN/Creatinine Ewsqh9789-94-98 04:28:00* Test Item Value Reference Range Interpretation Comments BUN/Creatinine Ratio (test code = 3097-3) 14 6-25 [facility] CenterEstimat Glomerular Filtration Rate 2018-02-16 04:28:00* Test Item Value Reference Range Interpretation Comments Estimat Glomerular Filtration Rate (test code = 36274-4) 60- >60 Ranges were taken from the National Kidney Disease Education Program and the [facility] literature.Reference ranges:60 or greater: Utukgn93-69 ( for 3 consecutive months): Chronic kidney disease 15 or less: Kidney failureThe [facility] of [facility]. Anderson Cancer CenterGlucose Ezjsg0713-55-16 04:28:00* Test Item Value Reference Range Interpretation Comments Glucose Level (test code = WUV4594) 94 74-118 [facility] CenterCalcium Dcdkv5215-43-47 04:28:00* Test Item Value Reference Range Interpretation Comments Calcium Level (test code = 12831-5) 9.0 8.4-10.2 [facility] CenterTotal Aczhaecsu6805-73-69 04:28:00* Test Item Value Reference Range Interpretation Comments Total Bilirubin (test code = 1975-2) 0.6 0.2-1.2 [facility] Cancer CenterAspartate Amino Transf (AST/SGOT) 2018-02-16 04:28:00* Test Item Value Reference Range Interpretation Comments Aspartate Amino Transf (AST/SGOT) (test code = Aspartate Amino Transf (AST/SGOT)) 23 5-34 [facility] CenterAlanine Aminotransferase (ALT/SGPT) 2018-02-16 04:28:00* Test Item Value Reference Range Interpretation Comments Alanine Aminotransferase (ALT/SGPT) (test code = 1742-6) 13 0-55 [facility] CenterTotal Pbixeku1910-90-65 04:28:00* Test Item Value Reference Range Interpretation Comments Total Protein (test code = 2885-2) 7.5 6.5-8.1 [facility] CenterAlbumin2018-05-28 04:28:00* Test Item Value Reference Range Interpretation Comments Albumin (test code = 1751-7) 3.8 3.5-5.0 [facility] CenterGlobulin2018-05-28 04:28:00* Test Item Value Reference Range Interpretation Comments Globulin (test code = 44159-0) 3.7 2.3-3.5 H [facility] CenterAlbumin/Globulin Oweoa5143-08-31 04:28:00 * Test Item Value Reference Range Interpretation Comments Albumin/Globulin Ratio (test code = 1759-0) 1.0 0.8-2.0 [facility] CenterAlkaline Vktkirzfgdc6974-25-39 04:28:00* Test Item Value Reference Range Interpretation Comments Alkaline Phosphatase (test code = 6768-6) 90 40-150 [facility] CenterCreatine Qoxrqb6257-51-69 04:28:00* Test Item Value Reference Range Interpretation Comments Creatine Kinase (test code = 2157-6) 67 29-168 [facility] CenterCreatine Kinase [id number] 04:28:00* Test Item Value Reference Range Interpretation Comments Creatine Kinase MB (test code = 34552-1) 0.70 0-5.0 [facility] CenterAmylase Fcgsq7000-03-46 04:28:00* Test Item Value Reference Range Interpretation Comments Amylase Level (test code = 1798-8) 68 25-125 [facility] CenterLipase2018-05-28 04:28:00* Test Item Value Reference Range Interpretation Comments Lipase (test code = 3040-3) 37 8-78 [facility]odium Ctnzh0980-38-84 04:28:00* Test Item Value Reference Range Interpretation Comments Sodium Level (test code = 2951-2) 137 136-145 [facility] CenterPotassium Dziwi4137-24-77 04:28:00* Test Item Value Reference Range Interpretation Comments Potassium Level (test code = 2823-3) 4.7 3.5-5.1 [facility] CenterChloride Hqgnm3982-78-97 04:28:00* Test Item Value Reference Range Interpretation Comments Chloride Level (test code = 2075-0) 106 98-107 [facility] CenterCarbon Dioxide Iawpk6443-26-65 04:28:00* Test Item Value Reference Range Interpretation Comments Carbon Dioxide Level (test code = 2028-9) 21 22-29 L [facility] CenterAnion Vix3258-15-50 04:28:00* Test Item Value Reference Range Interpretation Comments Anion Gap (test code = 95514-5) 14.7 8-16 [facility] CenterBlood Urea Ysvhlnca3793-48-15 04:28:00* Test Item Value Reference Range Interpretation Comments Blood Urea Nitrogen (test code = 3094-0) 10 7-26 [facility] Cancer CenterCreatinine2018-05-28 04:28:00* Test Item Value Reference Range Interpretation Comments Creatinine (test code = 2160-0) 0.69 0.57-1.11 [facility] CenterBUN/Creatinine Uudas5198-94-30 04:28:00* Test Item Value Reference Range Interpretation Comments BUN/Creatinine Ratio (test code = 3097-3) 14 6-25 [facility] CenterEstimat Glomerular Filtration Rate 2018-02-16 04:28:00* Test Item Value Reference Range Interpretation Comments Estimat Glomerular Filtration Rate (test code = 268451717) > 60 >60 Ranges were taken from the National Kidney Disease Education Program and the [facility] Kidney Foundation literature.Reference ranges:60 or greater: Likygk99-32 ( for 3 consecutive months): Chronic kidney disease 15 or less: Kidney failureThe [facility] of [facility] Cancer CenterGlucose Bfwxm8064-86-54 04:28:00* Test Item Value Reference Range Interpretation Comments Glucose Level (test code = XVI7957) 94 74-118 [facility] CenterCalcium Tnsfc1610-72-51 04:28:00* Test Item Value Reference Range Interpretation Comments Calcium Level (test code = 55514-1) 9.0 8.4-10.2 [facility] CenterTotal Lzjqvykkx7609-94-70 04:28:00* Test Item Value Reference Range Interpretation Comments Total Bilirubin (test code = 1975-2) 0.6 0.2-1.2 [facility] CenterAspartate Amino Transf (AST/SGOT) 2018-02-16 04:28:00* Test Item Value Reference Range Interpretation Comments Aspartate Amino Transf (AST/SGOT) (test code = Aspartate Amino Transf (AST/SGOT)) 23 5-34 [facility] CenterAlanine Aminotransferase (ALT/SGPT) 2018-02-16 04:28:00* Test Item Value Reference Range Interpretation Comments Alanine Aminotransferase (ALT/SGPT) (test code = 1742-6) 13 0-55 [facility] CenterTotal Nqnecrp6591-65-62 04:28:00* Test Item Value Reference Range Interpretation Comments Total Protein (test code = 2885-2) 7.5 6.5-8.1 [facility] CenterAlbumin2018-05-28 04:28:00* Test Item Value Reference Range Interpretation Comments Albumin (test code = 1751-7) 3.8 3.5-5.0 [facility] CenterGlobulin2018-05-28 04:28:00* Test Item Value Reference Range Interpretation Comments Globulin (test code = 72274-0) 3.7 2.3-3.5 H [facility] CenterAlbumin/Globulin Oydqi9803-60-73 04:28:00 * Test Item Value Reference Range Interpretation Comments Albumin/Globulin Ratio (test code = 1759-0) 1.0 0.8-2.0 [facility] CenterAlkaline Biljmpggtbg7008-83-75 04:28:00* Test Item Value Reference Range Interpretation Comments Alkaline Phosphatase (test code = 6768-6) 90 40-150 [facility] CenterCreatine Svpysc2049-20-67 04:28:00* Test Item Value Reference Range Interpretation Comments Creatine Kinase (test code = 2157-6) 67 29-168 [facility] CenterCreatine Kinase [id number] 04:28:00* Test Item Value Reference Range Interpretation Comments Creatine Kinase MB (test code = 56363-7) 0.70 0-5.0 [facility] CenterAmylase Iczfd2585-01-01 04:28:00* Test Item Value Reference Range Interpretation Comments Amylase Level (test code = 1798-8) 68 25-125 [facility] CenterLipase2018-05-28 04:28:00* Test Item Value Reference Range Interpretation Comments Lipase (test code = 3040-3) 37 8-78 [facility]odium Mxhkf9616-52-68 04:28:00* Test Item Value Reference Range Interpretation Comments Sodium Level (test code = 2951-2) 137 136-145 [facility] CenterPotassium Otlfw7962-14-38 04:28:00* Test Item Value Reference Range Interpretation Comments Potassium Level (test code = 2823-3) 4.7 3.5-5.1 [facility] CenterChloride Aoeug1061-15-68 04:28:00* Test Item Value Reference Range Interpretation Comments Chloride Level (test code = 2075-0) 106 98-107 [facility] CenterCarbon Dioxide Pbghw3297-37-14 04:28:00* Test Item Value Reference Range Interpretation Comments Carbon Dioxide Level (test code = 2028-9) 21 22-29 L [facility] CenterAnion Ddo9315-66-69 04:28:00* Test Item Value Reference Range Interpretation Comments Anion Gap (test code = 91706-3) 14.7 8-16 [facility] CenterBlood Urea Ibfpyqtw0481-13-58 04:28:00* Test Item Value Reference Range Interpretation Comments Blood Urea Nitrogen (test code = 3094-0) 10 7-26 [facility] CenterCreatinine2018-05-28 04:28:00* Test Item Value Reference Range Interpretation Comments Creatinine (test code = 2160-0) 0.69 0.57-1.11 [facility] CenterBUN/Creatinine Ngkzo9024-80-02 04:28:00* Test Item Value Reference Range Interpretation Comments BUN/Creatinine Ratio (test code = 3097-3) 14 6-25 [facility] CenterEstimat Glomerular Filtration Rate 2018-02-16 04:28:00* Test Item Value Reference Range Interpretation Comments Estimat Glomerular Filtration Rate (test code = 071046527) > 60 >60 Ranges were taken from the National Kidney Disease Education Program and the [facility] literature.Reference ranges:60 or greater: Drttlm37-43 ( for 3 consecutive months): Chronic kidney disease 15 or less: Kidney failureThe [facility] of [facility] Cancer CenterGlucose Prfrh9776-69-06 04:28:00* Test Item Value Reference Range Interpretation Comments Glucose Level (test code = JDS0583) 94 74-118 [facility] CenterCalcium Puoqf7881-32-96 04:28:00* Test Item Value Reference Range Interpretation Comments Calcium Level (test code = 91226-8) 9.0 8.4-10.2 [facility] CenterTotal Mzsdlnplr8026-82-32 04:28:00* Test Item Value Reference Range Interpretation Comments Total Bilirubin (test code = 1975-2) 0.6 0.2-1.2 [facility] CenterAspartate Amino Transf (AST/SGOT) 2018-02-16 04:28:00* Test Item Value Reference Range Interpretation Comments Aspartate Amino Transf (AST/SGOT) (test code = Aspartate Amino Transf (AST/SGOT)) 23 5-34 [facility] CenterAlanine Aminotransferase (ALT/SGPT) 2018-02-16 04:28:00* Test Item Value Reference Range Interpretation Comments Alanine Aminotransferase (ALT/SGPT) (test code = 1742-6) 13 0-55 [facility] CenterTotal Adzxepu5975-32-58 04:28:00* Test Item Value Reference Range Interpretation Comments Total Protein (test code = 2885-2) 7.5 6.5-8.1 [facility] CenterAlbumin2018-05-28 04:28:00* Test Item Value Reference Range Interpretation Comments Albumin (test code = 1751-7) 3.8 3.5-5.0 [facility] CenterGlobulin2018-05-28 04:28:00* Test Item Value Reference Range Interpretation Comments Globulin (test code = 88031-4) 3.7 2.3-3.5 H [facility] CenterAlbumin/Globulin Pxivi0653-81-11 04:28:00 * Test Item Value Reference Range Interpretation Comments Albumin/Globulin Ratio (test code = 1759-0) 1.0 0.8-2.0 [facility] CenterAlkaline Moiflhkxwzt8621-72-54 04:28:00* Test Item Value Reference Range Interpretation Comments Alkaline Phosphatase (test code = 6768-6) 90 40-150 [facility] CenterCreatine Aqsgqf2157-41-90 04:28:00* Test Item Value Reference Range Interpretation Comments Creatine Kinase (test code = 2157-6) 67 29-168 [facility] CenterCreatine Kinase IJ3880-65-05 04:28:00* Test Item Value Reference Range Interpretation Comments Creatine Kinase MB (test code = 05271-8) 0.70 0-5.0 [facility] CenterAmylase Rcsid8512-52-45 04:28:00* Test Item Value Reference Range Interpretation Comments Amylase Level (test code = 1798-8) 68 25-125 [facility] CenterLipase2018-05-28 04:28:00* Test Item Value Reference Range Interpretation Comments Lipase (test code = 3040-3) 37 8-78 [facility] CenterWhite Blood Akcrg0710-56-64 04:08:00* Test Item Value Reference Range Interpretation Comments White Blood Count (test code = 6690-2) 4.07 4.8-10.8 L [facility] CenterRed Blood Uoznq9956-19-27 04:08:00* Test Item Value Reference Range Interpretation Comments Red Blood Count (test code = 789-8) 4.11 3.6-5.1 [facility] CenterHemoglobin2018-05-28 04:08:00* Test Item Value Reference Range Interpretation Comments Hemoglobin (test code = 19811-1) 10.9 12.0-16.0 L [facility] CenterHematocrit2018-05-28 04:08:00* Test Item Value Reference Range Interpretation Comments Hematocrit (test code = 4544-3) 35.2 34.2-44.1 [facility] CenterMean Corpuscular Zsfehz6022-12-16 04:08:00* Test Item Value Reference Range Interpretation Comments Mean Corpuscular Volume (test code = 787-2) 85.6 81-99 [facility] CenterMean Corpuscular Rktscwzzmz3459-33-89 04:08:00* Test Item Value Reference Range Interpretation Comments Mean Corpuscular Hemoglobin (test code = 785-6) 26.5 28-32 L [facility] CenterMean Corpuscular Hemoglobin Concent 2018-02-16 04:08:00* Test Item Value Reference Range Interpretation Comments Mean Corpuscular Hemoglobin Concent (test code = 786-4) 31.0 31-35 [facility] CenterRed Cell Distribution Avltc7749-01-73 04:08:00* Test Item Value Reference Range Interpretation Comments Red Cell Distribution Width (test code = 31520-6) 13.4 11.7 -14.4 [facility] CenterPlatelet Zyxzd5998-22-81 04:08:00* Test Item Value Reference Range Interpretation Comments Platelet Count (test code = 777-3) 187 140-360 [facility] CenterNeutrophils (%) (Auto)2018-02-16 04:08:00 * Test Item Value Reference Range Interpretation Comments Neutrophils (%) (Auto) (test code = 35461-1) 52.1 38.7-80.0 [facility] CenterLymphocytes (%) (Auto)2018-02-16 04:08:00 * Test Item Value Reference Range Interpretation Comments Lymphocytes (%) (Auto) (test code = 736-9) 33.9 18.0-39.1 [facility] CenterMonocytes (%) (Auto)2018-02-16 04:08:00* Test Item Value Reference Range Interpretation Comments Monocytes (%) (Auto) (test code = 5905-5) 11.3 4.4-11.3 [facility] CenterEosinophils (%) (Auto)2018-02-16 04:08:00 * Test Item Value Reference Range Interpretation Comments Eosinophils (%) (Auto) (test code = 713-8) 2.0 0.0-6.0 [facility] CenterBasophils (%) (Auto)2018-02-16 04:08:00* Test Item Value Reference Range Interpretation Comments Basophils (%) (Auto) (test code = 706-2) 0.5 0.0-1.0 [facility] CenterIM GRANULOCYTES %2018-02-16 04:08:00* Test Item Value Reference Range Interpretation Comments IM GRANULOCYTES % (test code = IM GRANULOCYTES %) 0.2 0.0- 1.0 [facility] CenterNeutrophils # (Auto)2018-02-16 04:08:00* Test Item Value Reference Range Interpretation Comments Neutrophils # (Auto) (test code = 751-8) 2.1 2.1-6.9 [facility] CenterLymphocytes # (Auto)2018-02-16 04:08:00* Test Item Value Reference Range Interpretation Comments Lymphocytes # (Auto) (test code = 38219-0) 1.4 1.0-3.2 [facility] CenterMonocytes # (Auto)2018-02-16 04:08:00* Test Item Value Reference Range Interpretation Comments Monocytes # (Auto) (test code = 742-7) 0.5 0.2-0.8 [facility] CenterEosinophils # (Auto)2018-02-16 04:08:00* Test Item Value Reference Range Interpretation Comments Eosinophils # (Auto) (test code = 711-2) 0.1 0.0-0.4 [facility] CenterBasophils # (Auto)2018-02-16 04:08:00* Test Item Value Reference Range Interpretation Comments Basophils # (Auto) (test code = 704-7) 0.0 0.0-0.1 [facility] CenterAbsolute Immature Granulocyte (auto 2018-02-16 04:08:00* Test Item Value Reference Range Interpretation Comments Absolute Immature Granulocyte (auto (ponce t code = Absolute Immature Granulocyte (auto) 0.01 0-0.1 [facility] CenterWhite Blood Gbqhb2135-50-61 04:08:00* Test Item Value Reference Range Interpretation Comments White Blood Count (test code = 6690-2) 4.07 4.8-10.8 L [facility] CenterRed Blood Gecyh8224-27-98 04:08:00* Test Item Value Reference Range Interpretation Comments Red Blood Count (test code = 789-8) 4.11 3.6-5.1 [facility] CenterHemoglobin2018-05-28 04:08:00* Test Item Value Reference Range Interpretation Comments Hemoglobin (test code = 75455-3) 10.9 12.0-16.0 L [facility] CenterHematocrit2018-05-28 04:08:00* Test Item Value Reference Range Interpretation Comments Hematocrit (test code = 4544-3) 35.2 34.2-44.1 [facility] CenterMean Corpuscular Bugtsz5840-04-46 04:08:00* Test Item Value Reference Range Interpretation Comments Mean Corpuscular Volume (test code = 787-2) 85.6 81-99 [facility] CenterMean Corpuscular Qaxzzatndw1913-19-43 04:08:00* Test Item Value Reference Range Interpretation Comments Mean Corpuscular Hemoglobin (test code = 785-6) 26.5 28-32 L [facility] CenterMean Corpuscular Hemoglobin Concent 2018-02-16 04:08:00* Test Item Value Reference Range Interpretation Comments Mean Corpuscular Hemoglobin Concent (test code = 786-4) 31.0 31-35 [facility] CenterRed Cell Distribution Lmpks9327-09-44 04:08:00* Test Item Value Reference Range Interpretation Comments Red Cell Distribution Width (test code = 74145-7) 13.4 11.7 -14.4 [facility] CenterPlatelet Fsxik8421-56-16 04:08:00* Test Item Value Reference Range Interpretation Comments Platelet Count (test code = 777-3) 187 140-360 [facility] CenterNeutrophils (%) (Auto)2018-02-16 04:08:00 * Test Item Value Reference Range Interpretation Comments Neutrophils (%) (Auto) (test code = 78849-5) 52.1 38.7-80.0 [facility] CenterLymphocytes (%) (Auto)2018-02-16 04:08:00 * Test Item Value Reference Range Interpretation Comments Lymphocytes (%) (Auto) (test code = 736-9) 33.9 18.0-39.1 [facility] CenterMonocytes (%) (Auto)2018-02-16 04:08:00* Test Item Value Reference Range Interpretation Comments Monocytes (%) (Auto) (test code = 5905-5) 11.3 4.4-11.3 [facility] CenterEosinophils (%) (Auto)2018-02-16 04:08:00 * Test Item Value Reference Range Interpretation Comments Eosinophils (%) (Auto) (test code = 713-8) 2.0 0.0-6.0 [facility] CenterBasophils (%) (Auto)2018-02-16 04:08:00* Test Item Value Reference Range Interpretation Comments Basophils (%) (Auto) (test code = 706-2) 0.5 0.0-1.0 [facility] CenterIM GRANULOCYTES %2018-02-16 04:08:00* Test Item Value Reference Range Interpretation Comments IM GRANULOCYTES % (test code = IM GRANULOCYTES %) 0.2 0.0- 1.0 [facility] CenterNeutrophils # (Auto)2018-02-16 04:08:00* Test Item Value Reference Range Interpretation Comments Neutrophils # (Auto) (test code = 751-8) 2.1 2.1-6.9 [facility] CenterLymphocytes # (Auto)2018-02-16 04:08:00* Test Item Value Reference Range Interpretation Comments Lymphocytes # (Auto) (test code = 96241-9) 1.4 1.0-3.2 [facility] CenterMonocytes # (Auto)2018-02-16 04:08:00* Test Item Value Reference Range Interpretation Comments Monocytes # (Auto) (test code = 742-7) 0.5 0.2-0.8 [facility] CenterEosinophils # (Auto)2018-02-16 04:08:00* Test Item Value Reference Range Interpretation Comments Eosinophils # (Auto) (test code = 711-2) 0.1 0.0-0.4 [facility] CenterBasophils # (Auto)2018-02-16 04:08:00* Test Item Value Reference Range Interpretation Comments Basophils # (Auto) (test code = 704-7) 0.0 0.0-0.1 [facility] CenterAbsolute Immature Granulocyte (auto 2018-02-16 04:08:00* Test Item Value Reference Range Interpretation Comments Absolute Immature Granulocyte (auto (ponce t code = Absolute Immature Granulocyte (auto) 0.01 0-0.1 [facility] CenterWhite Blood Ykths6567-00-62 04:08:00* Test Item Value Reference Range Interpretation Comments White Blood Count (test code = 6690-2) 4.07 4.8-10.8 L [facility] CenterRed Blood Rzuyc4042-28-40 04:08:00* Test Item Value Reference Range Interpretation Comments Red Blood Count (test code = 789-8) 4.11 3.6-5.1 [facility] CenterHemoglobin2018-05-28 04:08:00* Test Item Value Reference Range Interpretation Comments Hemoglobin (test code = 43318-6) 10.9 12.0-16.0 L [facility] CenterHematocrit2018-05-28 04:08:00* Test Item Value Reference Range Interpretation Comments Hematocrit (test code = 4544-3) 35.2 34.2-44.1 [facility] CenterMean Corpuscular Llacor7545-65-84 04:08:00* Test Item Value Reference Range Interpretation Comments Mean Corpuscular Volume (test code = 787-2) 85.6 81-99 [facility] CenterMean Corpuscular Iuqfndamgt9441-25-69 04:08:00* Test Item Value Reference Range Interpretation Comments Mean Corpuscular Hemoglobin (test code = 785-6) 26.5 28-32 L [facility] CenterMean Corpuscular Hemoglobin Concent 2018-02-16 04:08:00* Test Item Value Reference Range Interpretation Comments Mean Corpuscular Hemoglobin Concent (test code = 786-4) 31.0 31-35 [facility] CenterRed Cell Distribution Qubhk1937-40-32 04:08:00* Test Item Value Reference Range Interpretation Comments Red Cell Distribution Width (test code = 64068-5) 13.4 11.7 -14.4 [facility] CenterPlatelet Xmlpz8876-54-03 04:08:00* Test Item Value Reference Range Interpretation Comments Platelet Count (test code = 777-3) 187 140-360 [facility] CenterNeutrophils (%) (Auto)2018-02-16 04:08:00 * Test Item Value Reference Range Interpretation Comments Neutrophils (%) (Auto) (test code = 08058-3) 52.1 38.7-80.0 [facility] CenterLymphocytes (%) (Auto)2018-02-16 04:08:00 * Test Item Value Reference Range Interpretation Comments Lymphocytes (%) (Auto) (test code = 736-9) 33.9 18.0-39.1 [facility] CenterMonocytes (%) (Auto)2018-02-16 04:08:00* Test Item Value Reference Range Interpretation Comments Monocytes (%) (Auto) (test code = 5905-5) 11.3 4.4-11.3 [facility] CenterEosinophils (%) (Auto)2018-02-16 04:08:00 * Test Item Value Reference Range Interpretation Comments Eosinophils (%) (Auto) (test code = 713-8) 2.0 0.0-6.0 [facility] CenterBasophils (%) (Auto)2018-02-16 04:08:00* Test Item Value Reference Range Interpretation Comments Basophils (%) (Auto) (test code = 706-2) 0.5 0.0-1.0 [facility] CenterIM GRANULOCYTES %2018-02-16 04:08:00* Test Item Value Reference Range Interpretation Comments IM GRANULOCYTES % (test code = IM GRANULOCYTES %) 0.2 0.0- 1.0 [facility] CenterNeutrophils # (Auto)2018-02-16 04:08:00* Test Item Value Reference Range Interpretation Comments Neutrophils # (Auto) (test code = 751-8) 2.1 2.1-6.9 [facility] CenterLymphocytes # (Auto)2018-02-16 04:08:00* Test Item Value Reference Range Interpretation Comments Lymphocytes # (Auto) (test code = 28261-7) 1.4 1.0-3.2 [facility] CenterMonocytes # (Auto)2018-02-16 04:08:00* Test Item Value Reference Range Interpretation Comments Monocytes # (Auto) (test code = 742-7) 0.5 0.2-0.8 [facility] CenterEosinophils # (Auto)2018-02-16 04:08:00* Test Item Value Reference Range Interpretation Comments Eosinophils # (Auto) (test code = 711-2) 0.1 0.0-0.4 [facility] CenterBasophils # (Auto)2018-02-16 04:08:00* Test Item Value Reference Range Interpretation Comments Basophils # (Auto) (test code = 704-7) 0.0 0.0-0.1 [facility] CenterAbsolute Immature Granulocyte (auto 2018-02-16 04:08:00* Test Item Value Reference Range Interpretation Comments Absolute Immature Granulocyte (auto (ponce t code = Absolute Immature Granulocyte (auto) 0.01 0-0.1 [facility] CenterUrine [id number] 04:07:00* Test Item Value Reference Range Interpretation Comments Urine WBC (test code = 5821-4) 11-20 0-5 H [facility] CenterUrine [id number] 04:07:00* Test Item Value Reference Range Interpretation Comments Urine RBC (test code = 45858-5) 6-10 0-5 H [facility] CenterUrine Jshssoyq0627-13-13 04:07:00* Test Item Value Reference Range Interpretation Comments Urine Bacteria (test code = 89214-8) RARE NONE [facility] CenterUrine Epithelial Ikokl2492-09-83 04:07:00 * Test Item Value Reference Range Interpretation Comments Urine Epithelial Cells (test code = 16947-1) FEW NONE [facility] CenterUrine Transitional Epithelial Cells 2018-02-16 04:07:00* Test Item Value Reference Range Interpretation Comments Urine Transitional Epithelial Cells (test code = 8249-5) FEW NONE H [facility] CenterUrine [id number] 04:07:00* Test Item Value Reference Range Interpretation Comments Urine WBC (test code = 5821-4) 11-20 0-5 H [facility] CenterUrine VUC5944-06-30 04:07:00* Test Item Value Reference Range Interpretation Comments Urine RBC (test code = 73372-8) 6-10 0-5 H [facility] Rrvhznqa1112-13-49 04:07:00* Test Item Value Reference Range Interpretation Comments Urine Bacteria (test code = 28517-4) RARE NONE [facility] CenterUrine Epithelial Ndogf5403-14-99 04:07:00 * Test Item Value Reference Range Interpretation Comments Urine Epithelial Cells (test code = 94241-4) FEW NONE [facility] CenterUrine Transitional Epithelial Cells 2018-02-16 04:07:00* Test Item Value Reference Range Interpretation Comments Urine Transitional Epithelial Cells (test code = 8249-5) FEW NONE H [facility] CenterUrine QSH8853-00-26 04:07:00* Test Item Value Reference Range Interpretation Comments Urine WBC (test code = 5821-4) 11-20 0-5 H [facility] CenterUrine BGZ3908-49-98 04:07:00* Test Item Value Reference Range Interpretation Comments Urine RBC (test code = 86428-8) 6-10 0-5 H [facility] CenterUrine Bxmpoqfw5959-13-98 04:07:00* Test Item Value Reference Range Interpretation Comments Urine Bacteria (test code = 56175-3) RARE NONE [facility] CenterUrine Epithelial Afgwi3304-86-62 04:07:00 * Test Item Value Reference Range Interpretation Comments Urine Epithelial Cells (test code = 15614-6) FEW NONE [facility] CenterUrine Transitional Epithelial Cells 2018-02-16 04:07:00* Test Item Value Reference Range Interpretation Comments Urine Transitional Epithelial Cells (test code = 8249-5) FEW NONE H [facility] CenterUrine Wikkj4530-35-80 04:00:00* Test Item Value Reference Range Interpretation Comments Urine Color (test code = 5778-6) YELLOW YELLOW [facility] CenterUrine Bafyeot4729-48-43 04:00:00* Test Item Value Reference Range Interpretation Comments Urine Clarity (test code = 48212-3) CLEAR CLEAR [facility] CenterUrine Specific Sytkpqh9617-00-36 04:00:00 * Test Item Value Reference Range Interpretation Comments Urine Specific [place] (test code = 5811-5) 1.015 1.010-1.02 5 [facility] CenterUrine gI0204-09-35 04:00:00* Test Item Value Reference Range Interpretation Comments Urine pH (test code = 80149-3) 8 5-7 H [facility] CenterUrine Leukocyte Pfvvnepq6947-95-30 04:00:00* Test Item Value Reference Range Interpretation Comments Urine Leukocyte Esterase (test code = 5799-2) TRACE NEGATIVE H [facility] CenterUrine Ugcmube1208-29-18 04:00:00* Test Item Value Reference Range Interpretation Comments Urine Nitrite (test code = 14853-3) NEGATIVE NEGATIVE [facility] CenterUrine Zhpqhrn2868-15-66 04:00:00* Test Item Value Reference Range Interpretation Comments Urine Protein (test code = 5804-0) NEGATIVE NEGATIVE [facility] CenterUrine Glucose (UA)2018-02-16 04:00:00* Test Item Value Reference Range Interpretation Comments Urine Glucose (UA) (test code = 2349-9) NEGATIVE NEGATIVE [facility] CenterUrine Hxexpks8656-41-95 04:00:00* Test Item Value Reference Range Interpretation Comments Urine Ketones (test code = 78972-2) NEGATIVE NEGATIVE [facility] CenterUrine Bojnhakcjqsi9424-65-94 04:00:00* Test Item Value Reference Range Interpretation Comments Urine Urobilinogen (test code = 86270-4) 1 0.2-1 [facility] CenterUrine Uzhngkxrx7092-11-47 04:00:00* Test Item Value Reference Range Interpretation Comments Urine Bilirubin (test code = 1978-6) NEGATIVE NEGATIVE [facility] CenterU[facility] Avmka0034-55-47 04:00:00* Test Item Value Reference Range Interpretation Comments Urine Blood (test code = 06733-8) TRACE NEGATIVE H [facility] CenterUrine Lodlm8778-97-94 04:00:00* Test Item Value Reference Range Interpretation Comments Urine Color (test code = 5778-6) YELLOW YELLOW [facility] CenterUrine Tuyrmqc9920-79-79 04:00:00* Test Item Value Reference Range Interpretation Comments Urine Clarity (test code = 59022-2) CLEAR CLEAR [facility] CenterUrine Specific Zkzikvc6899-33-35 04:00:00 * Test Item Value Reference Range Interpretation Comments Urine Specific [place] (test code = 5811-5) 1.015 1.010-1.02 5 [facility] CenterUrine kT6281-00-79 04:00:00* Test Item Value Reference Range Interpretation Comments Urine pH (test code = 12703-0) 8 5-7 H [facility] CenterUrine Leukocyte Tuhdtygq6899-56-24 04:00:00* Test Item Value Reference Range Interpretation Comments Urine Leukocyte Esterase (test code = 5799-2) TRACE NEGATIVE H [facility] CenterUrine Bjpuhzb2251-64-28 04:00:00* Test Item Value Reference Range Interpretation Comments Urine Nitrite (test code = 65500-1) NEGATIVE NEGATIVE [facility] CenterUrine Yohaqld8372-06-53 04:00:00* Test Item Value Reference Range Interpretation Comments Urine Protein (test code = 5804-0) NEGATIVE NEGATIVE [facility] Glucose (UA)2018-02-16 04:00:00* Test Item Value Reference Range Interpretation Comments Urine Glucose (UA) (test code = 2349-9) NEGATIVE NEGATIVE [facility] CenterU[facility] Miibolq5349-74-13 04:00:00* Test Item Value Reference Range Interpretation Comments Urine Ketones (test code = 13784-5) NEGATIVE NEGATIVE [facility] Eroqknhixyju9765-42-32 04:00:00* Test Item Value Reference Range Interpretation Comments Urine Urobilinogen (test code = 57998-1) 1 0.2-1 [facility] CenterU[facility] Smutaqaxx7489-85-28 04:00:00* Test Item Value Reference Range Interpretation Comments Urine Bilirubin (test code = 1978-6) NEGATIVE NEGATIVE [facility] CenterUrine Yuxnh6021-78-51 04:00:00* Test Item Value Reference Range Interpretation Comments Urine Blood (test code = 52610-2) TRACE NEGATIVE H [facility] CenterUrine Okmsp8280-59-98 04:00:00* Test Item Value Reference Range Interpretation Comments Urine Color (test code = 5778-6) YELLOW YELLOW [facility] CenterUrine Cbepygy4095-12-10 04:00:00* Test Item Value Reference Range Interpretation Comments Urine Clarity (test code = 73214-7) CLEAR CLEAR [facility] CenterU[facility] Specific Bitmmrk2099-37-97 04:00:00 * Test Item Value Reference Range Interpretation Comments Urine Specific [place] (test code = 5811-5) 1.015 1.010-1.02 5 [facility] CenterUrine hO3935-95-13 04:00:00* Test Item Value Reference Range Interpretation Comments Urine pH (test code = 69787-4) 8 5-7 H [facility] CenterUrine Leukocyte Tfepeiyb5858-59-48 04:00:00* Test Item Value Reference Range Interpretation Comments Urine Leukocyte Esterase (test code = 5799-2) TRACE NEGATIVE H [facility] Fgtbvlc0605-15-19 04:00:00* Test Item Value Reference Range Interpretation Comments Urine Nitrite (test code = 34344-2) NEGATIVE NEGATIVE [facility] CenterUrine Yxlvpra5038-20-52 04:00:00* Test Item Value Reference Range Interpretation Comments Urine Protein (test code = 5804-0) NEGATIVE NEGATIVE [facility] CenterUrine Glucose (UA)2018-02-16 04:00:00* Test Item Value Reference Range Interpretation Comments Urine Glucose (UA) (test code = 2349-9) NEGATIVE NEGATIVE [facility] CenterUrine Mqqqxtk6432-62-88 04:00:00* Test Item Value Reference Range Interpretation Comments Urine Ketones (test code = 58506-2) NEGATIVE NEGATIVE [facility] Fjyvypzmunyj5196-91-71 04:00:00* Test Item Value Reference Range Interpretation Comments Urine Urobilinogen (test code = 26523-4) 1 0.2-1 [facility] CenterUrine Erfyotofn6913-39-10 04:00:00* Test Item Value Reference Range Interpretation Comments Urine Bilirubin (test code = 1978-6) NEGATIVE NEGATIVE [facility] CenterUrine Wkmrt9888-06-70 04:00:00* Test Item Value Reference Range Interpretation Comments Urine Blood (test code = 44256-6) TRACE NEGATIVE H [facility] CenterCreatine Kinase RQ9718-90-17 16:21:00* Test Item Value Reference Range Interpretation Comments Creatine Kinase MB (test code = 72738-3) 0.60 0-5.0 [facility] CenterTroponin Q1805-33-72 16:21:00* Test Item Value Reference Range Interpretation Comments Troponin I (test code = UJF4383) -0.001 0-0.300 [facility] CenterCreatine Jexdoj2802-04-76 16:15:00* Test Item Value Reference Range Interpretation Comments Creatine Kinase (test code = 2157-6) 52 29-168 [facility] CenterProthrombin Lezw8185-39-82 16:13:00* Test Item Value Reference Range Interpretation Comments Prothrombin Time (test code = 5902-2) 12.5 11.9-14.5 [facility] CenterProthromb Time International Ratio 2017-12-18 16:13:00* Test Item Value Reference Range Interpretation Comments Prothromb Time International Ratio (test code = 6301-6) 1.01 Oral Anticoagulant Therapy INR Values:1. Low Intensity Therapy 1.5 - 2.02 . Moderate Intensity Therapy 2.0 - 3.03. High Intensity Therapy(1) 2.5 - 3. 54. High Intensity Therapy(2) 3.0 - 4.05. Panic Value INR > 5.0 [facility] CenterActivated Partial Thromboplast Time 2017-12-18 16:13:00* Test Item Value Reference Range Interpretation Comments Activated Partial Thromboplast Time (test code = 31163-9) 28.3 23.8-35.5 [facility] CenterProthrombin Gity6773-24-04 16:13:00* Test Item Value Reference Range Interpretation Comments Prothrombin Time (test code = 5902-2) 12.5 11.9-14.5 [facility] CenterProthromb Time International Ratio 2017-12-18 16:13:00* Test Item Value Reference Range Interpretation Comments Prothromb Time International Ratio (test code = 6301-6) 1.01 Oral Anticoagulant Therapy INR Values:1. Low Intensity Therapy 1.5 - 2.02 . Moderate Intensity Therapy 2.0 - 3.03. High Intensity Therapy(1) 2.5 - 3. 54. High Intensity Therapy(2) 3.0 - 4.05. Panic Value INR > 5.0 [facility] CenterActivated Partial Thromboplast Time 2017-12-18 16:13:00* Test Item Value Reference Range Interpretation Comments Activated Partial Thromboplast Time (test code = 43766-9) 28.3 23.8-35.5 [facility] CenterUrine ZPV3127-78-86 14:19:00* Test Item Value Reference Range Interpretation Comments Urine WBC (test code = 5821-4) 6-10 0-5 H [facility] CenterUrine NIO2738-50-57 14:19:00* Test Item Value Reference Range Interpretation Comments Urine RBC (test code = 69826-2) 0-5 0-5 [facility] CenterUrine Itazartd9038-00-61 14:19:00* Test Item Value Reference Range Interpretation Comments Urine Bacteria (test code = 79656-2) FEW NONE [facility] CenterUrine Epithelial Qimqx0418-11-23 14:19:00 * Test Item Value Reference Range Interpretation Comments Urine Epithelial Cells (test code = 92531-2) FEW NONE [facility] CenterUrine Vwlhp8831-17-61 14:01:00* Test Item Value Reference Range Interpretation Comments Urine Color (test code = 5778-6) YELLOW YELLOW [facility] CenterUrine Sljpwmt6982-40-18 14:01:00* Test Item Value Reference Range Interpretation Comments Urine Clarity (test code = 09959-5) CLEAR CLEAR [facility] CenterUrine Specific Exaptgy2711-12-13 14:01:00 * Test Item Value Reference Range Interpretation Comments Urine Specific [place] (test code = 5811-5) 1.010 1.010-1.02 5 [facility] CenterUrine tN5567-28-35 14:01:00* Test Item Value Reference Range Interpretation Comments Urine pH (test code = 25606-8) 7 5-7 [facility] CenterUrine Leukocyte Rdopnmau5942-88-10 14:01:00* Test Item Value Reference Range Interpretation Comments Urine Leukocyte Esterase (test code = 5799-2) 1+ NEGATIVE H [facility] CenterUrine Vsdrobj7679-31-61 14:01:00* Test Item Value Reference Range Interpretation Comments Urine Nitrite (test code = 02085-7) NEGATIVE NEGATIVE [facility] CenterUrine Cemmlbq7633-86-07 14:01:00* Test Item Value Reference Range Interpretation Comments Urine Protein (test code = 5804-0) NEGATIVE NEGATIVE [facility] CenterUrine Glucose (UA)2017-12-18 14:01:00* Test Item Value Reference Range Interpretation Comments Urine Glucose (UA) (test code = 2349-9) NEGATIVE NEGATIVE [facility] Neqxbnf0463-05-59 14:01:00* Test Item Value Reference Range Interpretation Comments Urine Ketones (test code = 76999-5) NEGATIVE NEGATIVE [facility] Npyofxnplfeo3929-69-86 14:01:00* Test Item Value Reference Range Interpretation Comments Urine Urobilinogen (test code = 02656-7) 0.2 0.2-1 [facility] Cqvjsqvdh6192-08-08 14:01:00* Test Item Value Reference Range Interpretation Comments Urine Bilirubin (test code = 1978-6) NEGATIVE NEGATIVE [facility] Qgixj2007-61-23 14:01:00* Test Item Value Reference Range Interpretation Comments Urine Blood (test code = 97223-0) 1+ NEGATIVE H [facility] CenterMagnesium Hmaji0779-03-68 14:01:00* Test Item Value Reference Range Interpretation Comments Magnesium Level (test code = 78919-7) 1.8 1.3-2.1 [facility] CenterAmylase Tnoig2938-45-60 14:01:00* Test Item Value Reference Range Interpretation Comments Amylase Level (test code = 1798-8) 62 25-125 [facility] CenterLipase2018-03-29 14:01:00* Test Item Value Reference Range Interpretation Comments Lipase (test code = 3040-3) 37 8-78 [facility] CenterMagnesium Bsilj0565-46-48 14:01:00* Test Item Value Reference Range Interpretation Comments Magnesium Level (test code = 40305-8) 1.8 1.3-2.1 [facility]odium Hzoni0328-71-11 13:55:00* Test Item Value Reference Range Interpretation Comments Sodium Level (test code = 2951-2) 138 136-145 [facility] CenterPotassium Rhfay1594-39-91 13:55:00* Test Item Value Reference Range Interpretation Comments Potassium Level (test code = 2823-3) 4.2 3.5-5.1 [facility] CenterChloride Vaqmv5385-88-83 13:55:00* Test Item Value Reference Range Interpretation Comments Chloride Level (test code = 2075-0) 105 98-107 [facility] CenterCarbon Dioxide Tuoov7958-89-23 13:55:00* Test Item Value Reference Range Interpretation Comments Carbon Dioxide Level (test code = 2028-9) 25 - [facility] CenterAnion Paq0487-07-51 13:55:00* Test Item Value Reference Range Interpretation Comments Anion Gap (test code = 98624-1) 12.2 8-16 [facility] CenterBlood Urea Exlwkrrg7791-85-66 13:55:00* Test Item Value Reference Range Interpretation Comments Blood Urea Nitrogen (test code = 3094-0) 9 7-26 [facility] CenterCreatinine2018-03-29 13:55:00* Test Item Value Reference Range Interpretation Comments Creatinine (test code = 2160-0) 0.68 0.57-1.11 [facility] CenterBUN/Creatinine Ltswl7822-30-20 13:55:00* Test Item Value Reference Range Interpretation Comments BUN/Creatinine Ratio (test code = 3097-3) 13 6-25 [facility] CenterEstimat Glomerular Filtration Rate 2017-12-18 13:55:00* Test Item Value Reference Range Interpretation Comments Estimat Glomerular Filtration Rate (test code = 53263-5) 60- >60 Ranges were taken from the National Kidney Disease Education Program and the [facility] literature.Reference ranges:60 or greater: Lqskcc65-82 ( for 3 consecutive months): Chronic kidney disease 15 or less: Kidney failureCHI Heart Hospital Of AustinGlucose Yvxpo7585-46-32 13:55:00* Test Item Value Reference Range Interpretation Comments Glucose Level (test code = AYC6923) 112 74-118 [facility] CenterCalcium Ldcyb5064-28-12 13:55:00* Test Item Value Reference Range Interpretation Comments Calcium Level (test code = 00486-9) 9.1 8.4-10.2 [facility] CenterTokane county human resource ssd Bnnuwusmc4016-78-47 13:55:00* Test Item Value Reference Range Interpretation Comments Total Bilirubin (test code = 1975-2) 0.5 0.2-1.2 [facility] CenterAspartate Amino Transf (AST/SGOT) 2017-12-18 13:55:00* Test Item Value Reference Range Interpretation Comments Aspartate Amino Transf (AST/SGOT) (test code = Aspartate Amino Transf (AST/SGOT)) 15 5-34 [facility] CenterAlanine Aminotransferase (ALT/SGPT) 2017-12-18 13:55:00* Test Item Value Reference Range Interpretation Comments Alanine Aminotransferase (ALT/SGPT) (test code = 1742-6) 6 0-55 [facility] CenterTokane [facility] human resource ssd Qqfhtls6538-01-35 13:55:00* Test Item Value Reference Range Interpretation Comments Total Protein (test code = 2885-2) 6.9 6.5-8.1 [facility] CenterAlbumin2018-03-29 13:55:00* Test Item Value Reference Range Interpretation Comments Albumin (test code = 1751-7) 3.4 3.5-5.0 L [facility] CenterGlobulin2018-03-29 13:55:00* Test Item Value Reference Range Interpretation Comments Globulin (test code = 91465-1) 3.5 2.3-3.5 [facility] CenterAlbumin/Globulin Wtkyf1277-81-79 13:55:00 * Test Item Value Reference Range Interpretation Comments Albumin/Globulin Ratio (test code = 1759-0) 1.0 0.8-2.0 [facility] CenterAlkaline Jbirhfeovcy5748-51-75 13:55:00* Test Item Value Reference Range Interpretation Comments Alkaline Phosphatase (test code = 6768-6) 78 40-150 [facility] CenterWhite Blood Pvukw5484-58-11 13:32:00* Test Item Value Reference Range Interpretation Comments White Blood Count (test code = 6690-2) 6.10 4.8-10.8 [facility] CenterRed Blood Tpyzd4555-45-64 13:32:00* Test Item Value Reference Range Interpretation Comments Red Blood Count (test code = 789-8) 3.87 3.6-5.1 [facility] CenterHemoglobin2018-03-29 13:32:00* Test Item Value Reference Range Interpretation Comments Hemoglobin (test code = 04268-3) 10.6 12.0-16.0 L [facility] CenterHematocrit2018-03-29 13:32:00* Test Item Value Reference Range Interpretation Comments Hematocrit (test code = 4544-3) 32.4 34.2-44.1 L [facility] CenterMean Corpuscular Saaidf3557-88-07 13:32:00* Test Item Value Reference Range Interpretation Comments Mean Corpuscular Volume (test code = 787-2) 83.7 81-99 [facility] CenterMean Corpuscular Jifxqiemcc1196-62-88 13:32:00* Test Item Value Reference Range Interpretation Comments Mean Corpuscular Hemoglobin (test code = 785-6) 27.4 28-32 L [facility] CenterMean Corpuscular Hemoglobin Concent 2017-12-18 13:32:00* Test Item Value Reference Range Interpretation Comments Mean Corpuscular Hemoglobin Concent (test code = 786-4) 32.7 31-35 [facility] CenterRed Cell Distribution Scxmh8427-29-79 13:32:00* Test Item Value Reference Range Interpretation Comments Red Cell Distribution Width (test code = 60746-7) 14.4 11.7 -14.4 [facility] CenterPlatelet Efhbb8394-76-88 13:32:00* Test Item Value Reference Range Interpretation Comments Platelet Count (test code = 777-3) 202 140-360 [facility] CenterNeutrophils (%) (Auto)2017-12-18 13:32:00 * Test Item Value Reference Range Interpretation Comments Neutrophils (%) (Auto) (test code = 76244-6) 73.9 38.7-80.0 [facility] CenterLymphocytes (%) (Auto)2017-12-18 13:32:00 * Test Item Value Reference Range Interpretation Comments Lymphocytes (%) (Auto) (test code = 736-9) 16.6 18.0-39.1 L [facility] CenterMonocytes (%) (Auto)2017-12-18 13:32:00* Test Item Value Reference Range Interpretation Comments Monocytes (%) (Auto) (test code = 5905-5) 6.9 4.4-11.3 [facility] CenterEosinophils (%) (Auto)2017-12-18 13:32:00 * Test Item Value Reference Range Interpretation Comments Eosinophils (%) (Auto) (test code = 713-8) 2.0 0.0-6.0 [facility] CenterBasophils (%) (Auto)2017-12-18 13:32:00* Test Item Value Reference Range Interpretation Comments Basophils (%) (Auto) (test code = 706-2) 0.3 0.0-1.0 [facility] CenterIM GRANULOCYTES %2017-12-18 13:32:00* Test Item Value Reference Range Interpretation Comments IM GRANULOCYTES % (test code = IM GRANULOCYTES %) 0.3 0.0- 1.0 [facility] CenterNeutrophils # (Auto)2017-12-18 13:32:00* Test Item Value Reference Range Interpretation Comments Neutrophils # (Auto) (test code = 751-8) 4.5 2.1-6.9 [facility] CenterLymphocytes # (Auto)2017-12-18 13:32:00* Test Item Value Reference Range Interpretation Comments Lymphocytes # (Auto) (test code = 62620-5) 1.0 1.0-3.2 [facility] CenterMonocytes # (Auto)2017-12-18 13:32:00* Test Item Value Reference Range Interpretation Comments Monocytes # (Auto) (test code = 742-7) 0.4 0.2-0.8 [facility] CenterEosinophils # (Auto)2017-12-18 13:32:00* Test Item Value Reference Range Interpretation Comments Eosinophils # (Auto) (test code = 711-2) 0.1 0.0-0.4 [facility] CenterBasophils # (Auto)2017-12-18 13:32:00* Test Item Value Reference Range Interpretation Comments Basophils # (Auto) (test code = 704-7) 0.0 0.0-0.1 [facility] CenterAbsolute Immature Granulocyte (auto 2017-12-18 13:32:00* Test Item Value Reference Range Interpretation Comments Absolute Immature Granulocyte (auto (ponce t code = Absolute Immature Granulocyte (auto) 0.02 0-0.1 [facility] Tgaojmg1855-85-89 11:47:00* Test Item Value Reference Range Interpretation Comments Bedside Glucose (test code = 14554-2) 105 70-120 Meter ID: [id number] Glucose 2017-11-11 11:47:00* Test Item Value Reference Range Interpretation Comments Bedside Glucose (test code = 30298-1) 105 70-120 Meter ID: [id number] Glucose 2017-11-11 11:47:00* Test Item Value Reference Range Interpretation Comments Bedside Glucose (test code = 81177-9) 105 70-120 Meter ID: [id number] University Medical CenterClostridium Difficile Toxin A & Y6033-63-71 20:22:00* Test Item Value Reference Range Interpretation Comments Clostridium Difficile Toxin A & B (test code = 991692779) NEGATIVE NEGATIVE Testing on stool aspirate specimens is outside real estate services coordinator claims since specime n type not validated on this assay.[facility] Clostridium Difficile Toxin A & [id number] 20:22:00* Test Item Value Reference Range Interpretation Comments Clostridium Difficile Toxin A & B (test code = 045937502) NEGATIVE NEGATIVE Testing on stool aspirate specimens is outside real estate services coordinator claims since specime n type not validated on this assay.[facility] Clostridium Difficile Toxin A & [id number] 20:22:00* Test Item Value Reference Range Interpretation Comments Clostridium Difficile Toxin A & B (test code = 679796912) NEGATIVE NEGATIVE Testing on stool aspirate specimens is outside real estate services coordinator claims since specime n type not validated on this assay.[facility] Erythrocyte Sedimentation Uxlh9604-48-46 09:29:00* Test Item Value Reference Range Interpretation Comments Erythrocyte Sedimentation Rate (test code = 4537-7) 8 0- 20 [facility] CenterErythrocyte Sedimentation Ddvn9960-29-48 09:29:00* Test Item Value Reference Range Interpretation Comments Erythrocyte Sedimentation Rate (test code = 4537-7) 8 0- 20 [facility] CenterErythrocyte Sedimentation Scvl2491-55-02 09:29:00* Test Item Value Reference Range Interpretation Comments Erythrocyte Sedimentation Rate (test code = 4537-7) 8 0- 20 [facility] CenterHemoglobin A1c Ilsqpqf2996-04-14 07:35:00 * Test Item Value Reference Range Interpretation Comments Hemoglobin A1c Percent (test code = Hemoglobin A1c Percent) 5.0 4.0-7.0 [facility] CenterHemoglobin A1c Tsnhcrk3512-91-62 07:35:00 * Test Item Value Reference Range Interpretation Comments Hemoglobin A1c Percent (test code = Hemoglobin A1c Percent) 5.0 4.0-7.0 [facility] CenterHemoglobin A1c Amlbrzk3597-00-39 07:35:00 * Test Item Value Reference Range Interpretation Comments Hemoglobin A1c Percent (test code = Hemoglobin A1c Percent) 5.0 4.0-7.0 [facility] Jlkha0345-02-01 07:00:00* Test Item Value Reference Range Interpretation Comments Sodium Level (test code = 2951-2) 135 136-145 L [facility] CenterPotassium Ljpdw5777-38-78 07:00:00* Test Item Value Reference Range Interpretation Comments Potassium Level (test code = 2823-3) 4.2 3.5-5.1 [facility] CenterChloride Baoum7010-09-70 07:00:00* Test Item Value Reference Range Interpretation Comments Chloride Level (test code = 2075-0) 106 98-107 [facility] CenterCarbon Dioxide Gatie0715-84-43 07:00:00* Test Item Value Reference Range Interpretation Comments Carbon Dioxide Level (test code = 2028-9) 22 22-29 [facility] CenterAnion Wso9220-30-96 07:00:00* Test Item Value Reference Range Interpretation Comments Anion Gap (test code = 46972-8) 11.2 8-16 [facility] CenterBlood Urea Uflpypzz7004-29-63 07:00:00* Test Item Value Reference Range Interpretation Comments Blood Urea Nitrogen (test code = 3094-0) 8 7-26 [facility] CenterCreatinine2018-02-19 07:00:00* Test Item Value Reference Range Interpretation Comments Creatinine (test code = 2160-0) 0.71 0.57-1.11 [facility] CenterBUN/Creatinine Qjtox6471-15-36 07:00:00* Test Item Value Reference Range Interpretation Comments BUN/Creatinine Ratio (test code = 3097-3) 11 6-25 [facility] CenterEstimat Glomerular Filtration Rate 2017-11-10 07:00:00* Test Item Value Reference Range Interpretation Comments Estimat Glomerular Filtration Rate (test code = 73373-7) 60- >60 Ranges were taken from the National Kidney Disease Education Program and the [facility] literature.Reference ranges:60 or greater: Kdmmvh34-04 ( for 3 consecutive months): Chronic kidney disease 15 or less: Kidney failureThe [facility] of [facility] Cancer CenterGlucose Tzfjn7566-82-31 07:00:00* Test Item Value Reference Range Interpretation Comments Glucose Level (test code = OAM8637) 91 74-118 [facility] CenterCalcium Tnsjf2118-15-48 07:00:00* Test Item Value Reference Range Interpretation Comments Calcium Level (test code = 93312-1) 8.4 8.4-10.2 [facility] CenterTotal Iwqqadncq2917-28-95 07:00:00* Test Item Value Reference Range Interpretation Comments Total Bilirubin (test code = 1975-2) 0.5 0.2-1.2 [facility] CenterAspartate Amino Transf (AST/SGOT) 2017-11-10 07:00:00* Test Item Value Reference Range Interpretation Comments Aspartate Amino Transf (AST/SGOT) (test code = Aspartate Amino Transf (AST/SGOT)) 18 5-34 [facility] CenterAlanine Aminotransferase (ALT/SGPT) 2017-11-10 07:00:00* Test Item Value Reference Range Interpretation Comments Alanine Aminotransferase (ALT/SGPT) (test code = 1742-6) 8 0-55 [facility] CenterTotal Llnmljz9397-28-65 07:00:00* Test Item Value Reference Range Interpretation Comments Total Protein (test code = 2885-2) 6.6 6.5-8.1 [facility] CenterAlbumin2018-02-19 07:00:00* Test Item Value Reference Range Interpretation Comments Albumin (test code = 1751-7) 3.4 3.5-5.0 L [facility] CenterGlobulin2018-02-19 07:00:00* Test Item Value Reference Range Interpretation Comments Globulin (test code = 49928-9) 3.2 2.3-3.5 [facility] CenterAlbumin/Globulin Ujwkg5941-17-77 07:00:00 * Test Item Value Reference Range Interpretation Comments Albumin/Globulin Ratio (test code = 1759-0) 1.1 0.8-2.0 [facility] CenterAlkaline Zbmzhdyjxrp4406-49-74 07:00:00* Test Item Value Reference Range Interpretation Comments Alkaline Phosphatase (test code = 6768-6) 68 40-150 [facility] CenterWhite Blood Obssq5816-09-79 06:25:00* Test Item Value Reference Range Interpretation Comments White Blood Count (test code = 6690-2) 3.66 4.8-10.8 L [facility] CenterRed Blood Iwdna3546-02-75 06:25:00* Test Item Value Reference Range Interpretation Comments Red Blood Count (test code = 789-8) 4.06 3.6-5.1 [facility] CenterHemoglobin2018-02-19 06:25:00* Test Item Value Reference Range Interpretation Comments Hemoglobin (test code = 97559-7) 10.7 12.0-16.0 L [facility] CenterHematocrit2018-02-19 06:25:00* Test Item Value Reference Range Interpretation Comments Hematocrit (test code = 4544-3) 34.9 34.2-44.1 [facility] CenterMean Corpuscular Winexk7503-06-57 06:25:00* Test Item Value Reference Range Interpretation Comments Mean Corpuscular Volume (test code = 787-2) 86.0 81-99 [facility] CenterMean Corpuscular Pwvzcdhhun9124-51-83 06:25:00* Test Item Value Reference Range Interpretation Comments Mean Corpuscular Hemoglobin (test code = 785-6) 26.4 28-32 L [facility] CenterMean Corpuscular Hemoglobin Concent 2017-11-10 06:25:00* Test Item Value Reference Range Interpretation Comments Mean Corpuscular Hemoglobin Concent (test code = 786-4) 30.7 31-35 L [facility] CenterRed Cell Distribution Vldme6224-01-29 06:25:00* Test Item Value Reference Range Interpretation Comments Red Cell Distribution Width (test code = 56863-1) 15.3 11.7 -14.4 H [facility] CenterPlatelet Cnlio4785-92-98 06:25:00* Test Item Value Reference Range Interpretation Comments Platelet Count (test code = 777-3) 167 140-360 [facility] CenterNeutrophils (%) (Auto)2017-11-10 06:25:00 * Test Item Value Reference Range Interpretation Comments Neutrophils (%) (Auto) (test code = 67521-4) 52.3 38.7-80.0 [facility] CenterLymphocytes (%) (Auto)2017-11-10 06:25:00 * Test Item Value Reference Range Interpretation Comments Lymphocytes (%) (Auto) (test code = 736-9) 33.3 18.0-39.1 [facility] CenterMonocytes (%) (Auto)2017-11-10 06:25:00* Test Item Value Reference Range Interpretation Comments Monocytes (%) (Auto) (test code = 5905-5) 11.7 4.4-11.3 H [facility] CenterEosinophils (%) (Auto)2017-11-10 06:25:00 * Test Item Value Reference Range Interpretation Comments Eosinophils (%) (Auto) (test code = 713-8) 1.6 0.0-6.0 [facility] CenterBasophils (%) (Auto)2017-11-10 06:25:00* Test Item Value Reference Range Interpretation Comments Basophils (%) (Auto) (test code = 706-2) 0.8 0.0-1.0 [facility] CenterIM GRANULOCYTES %2017-11-10 06:25:00* Test Item Value Reference Range Interpretation Comments IM GRANULOCYTES % (test code = IM GRANULOCYTES %) 0.3 0.0- 1.0 [facility] CenterNeutrophils # (Auto)2017-11-10 06:25:00* Test Item Value Reference Range Interpretation Comments Neutrophils # (Auto) (test code = 751-8) 1.9 2.1-6.9 L [facility] CenterLymphocytes # (Auto)2017-11-10 06:25:00* Test Item Value Reference Range Interpretation Comments Lymphocytes # (Auto) (test code = 71015-0) 1.2 1.0-3.2 [facility] CenterMonocytes # (Auto)2017-11-10 06:25:00* Test Item Value Reference Range Interpretation Comments Monocytes # (Auto) (test code = 742-7) 0.4 0.2-0.8 [facility] CenterEosinophils # (Auto)2017-11-10 06:25:00* Test Item Value Reference Range Interpretation Comments Eosinophils # (Auto) (test code = 711-2) 0.1 0.0-0.4 [facility] CenterBasophils # (Auto)2017-11-10 06:25:00* Test Item Value Reference Range Interpretation Comments Basophils # (Auto) (test code = 704-7) 0.0 0.0-0.1 [facility] CenterAbsolute Immature Granulocyte (auto 2017-11-10 06:25:00* Test Item Value Reference Range Interpretation Comments Absolute Immature Granulocyte (auto (ponce t code = Absolute Immature Granulocyte (auto) 0.01 0-0.1 [facility] CenterUrine SYS3266-34-93 21:43:00* Test Item Value Reference Range Interpretation Comments Urine WBC (test code = 5821-4) 0-5 0-5 [facility] CenterUrine CUA8008-56-50 21:43:00* Test Item Value Reference Range Interpretation Comments Urine RBC (test code = 65612-5) 0-5 0-5 [facility] CenterUrine Ntywgpzh9622-18-68 21:43:00* Test Item Value Reference Range Interpretation Comments Urine Bacteria (test code = 69916-0) MODERATE NONE H [facility] CenterUrine Epithelial Lfzko0816-38-66 21:43:00 * Test Item Value Reference Range Interpretation Comments Urine Epithelial Cells (test code = 80259-8) RARE NONE [facility] CenterUrine Lmnnd6982-97-09 21:36:00* Test Item Value Reference Range Interpretation Comments Urine Color (test code = 5778-6) YELLOW YELLOW [facility] CenterUrine Iozjjsg5052-46-06 21:36:00* Test Item Value Reference Range Interpretation Comments Urine Clarity (test code = 67892-8) CLEAR CLEAR [facility] CenterUrine Specific Wgseung5152-72-72 21:36:00 * Test Item Value Reference Range Interpretation Comments Urine Specific [place] (test code = 5811-5) 1.015 1.010-1.02 5 [facility] CenterUrine sR0100-36-76 21:36:00* Test Item Value Reference Range Interpretation Comments Urine pH (test code = 38017-7) 6 5-7 [facility] CenterUrine Leukocyte Iwmxgwwx4385-61-68 21:36:00* Test Item Value Reference Range Interpretation Comments Urine Leukocyte Esterase (test code = 5799-2) NEGATIVE NEGATIVE [facility] CenterUrine Wlvowbs4065-53-60 21:36:00* Test Item Value Reference Range Interpretation Comments Urine Nitrite (test code = 23712-3) NEGATIVE NEGATIVE [facility] CenterUrine Zjnttlq9151-79-16 21:36:00* Test Item Value Reference Range Interpretation Comments Urine Protein (test code = 5804-0) NEGATIVE NEGATIVE [facility] CenterUrine Glucose (UA)2017-11-09 21:36:00* Test Item Value Reference Range Interpretation Comments Urine Glucose (UA) (test code = 2349-9) NEGATIVE NEGATIVE [facility] CenterUrine Wfzjbeg7276-86-97 21:36:00* Test Item Value Reference Range Interpretation Comments Urine Ketones (test code = 21541-8) NEGATIVE NEGATIVE [facility] Gcczjrypynba2197-78-03 21:36:00* Test Item Value Reference Range Interpretation Comments Urine Urobilinogen (test code = 95419-6) 0.2 0.2-1 [facility] CenterUrine Ltciidlno0275-76-07 21:36:00* Test Item Value Reference Range Interpretation Comments Urine Bilirubin (test code = 1978-6) NEGATIVE NEGATIVE [facility] CenterUrine Wxhgh2417-05-44 21:36:00* Test Item Value Reference Range Interpretation Comments Urine Blood (test code = 25393-4) TRACE NEGATIVE H [facility] CenterCreatine Smeoof7133-91-36 18:47:00* Test Item Value Reference Range Interpretation Comments Creatine Kinase (test code = 2157-6) 87 29-168 [facility] CenterCreatine Kinase II2449-33-99 18:47:00* Test Item Value Reference Range Interpretation Comments Creatine Kinase MB (test code = 53236-3) 1.00 0-5.0 [facility] CenterTroponin [id number] 18:47:00* Test Item Value Reference Range Interpretation Comments Troponin I (test code = SUV2869) -0.00 0.0-0.78 L [facility] CenterCT ABDOMEN/PELVIS WO [facility] [address] [address] Patient Name: YASMINE FELIX MR #: [id number] : 1955 Age/Sex: 63/F Req #: [id number] Adm Physician: Ordered by: RAMÍREZ RAYMOND MD Report #: [id number] Location: ER Room/B ed: Procedure: [id number] CT/CT ABDOMEN/PELVIS CHRISTIANO Boyce Date: 02/16/18 Exam Time: 0500 REPORT STATUS: Signed EXAM: CT ABDOMEN AND PELVIS without IV CONTRAST INDICATION: Abdomi nal pain, nausea and vomiting COMPARISON: CT of the abdomen and pelvis 2017 TECHNIQUE: The abdomen and pelvis were scanned using a multidetect or helical scanner. Coronal and sagittal reformations were obtained. Routine p rotocol performed. IV Contrast: None Oral Contrast: Gastrografin CTDIvol has been reviewed. It is below the limits set by the Radiation Protocol Commi ttee (RPC). FINDINGS: LOWER THORAX: No consolidations LIVER: No mass es BILIARY: Cholecystectomy. No abnormal ductal dilation. SPLEEN: No mas ses PANCREAS: No masses ADRENALS: No nodules RIGHT KIDNEY: No nephro ureterolithiasis or hydronephrosis. LEFT KIDNEY: No nephroureterolithiasis or hydronephrosis. GI TRACT: No wall thickening or obstruction. Surgical c hanges of gastric bypass. Surgical sutures around the sigmoid colon. Normal ap pendix. VESSELS: Mild atherosclerotic changes of the abdominal aorta witho ut aneurysm. PERITONEUM/RETROPERITONEUM: No free air or fluid LYMPH NODES: N o lymphadenopathy REPRODUCTIVE ORGANS: Not visualized BLADDER: Normal SOFT TISSUES: Normal BONES: No suspicious bone lesions. IMPRESSION: No acute findings. No bowel obstruction. Signed by: Dr. Bam Nascimento M.D. on 02/16/2018 5:20 AM Dictated By: BAM NASCIMENTO MD 9 Transcribed By: JENNIFER on 519 COPY TO: RAMÍREZ RAYMOND MD CT ABDOMEN/PELVIS [address] [place] [address] Patient Name: YASMINE FELIX MR #: [id number] : 1955 Age/Sex: 62/F Req #: [id number] Adm Physician: Ordered by: MIKEY FLORENTINO MD Report #: [id number] Location: ER Room/Bed: Procedure: [id number] CT/CT ABDOMEN/PELVIS W Exam Da te: 11/09/17 Exam Time: 1949 REPORT STATUS: Sig ibeth EXAM: CT ABDOMEN/PELVIS W DATE: 11/09/2017 6:05 PM INDICATION: Abdo marika pain COMPARISON: 05/07/2016 TECHNIQUE: The abdomen and pelvis were sca nned using a multidetector helical scanner. Coronal and sagittal reformations were obtained. Routine protocol performed. IV Contrast: 100 ml Isovue 370 FINDINGS: LOWER THORAX: Mild bibasilar atelectasis. LIVER/BILIARY: Sta ble low-density right liver lesion, likely benign. Unchanged mild biliary duct al dilation. GALLBLADDER: Cholecystectomy. SPLEEN: Unremarkable PANCREA S: Unremarkable ADRENALS: No nodules KIDNEYS: Symmetric perfusion. Stable subcentimeter probable left inferior renal cyst. No hydronephrosis. GI T RACT: Postsurgical changes are seen status post gastric bypass and prior sigmo idectomy. No evidence of obstruction or wall thickening. Normal appendix. V ESSELS: Mild to moderate atherosclerotic changes. PERITONEUM/RETROPERITONEUM: No free air or fluid LYMPH NODES: No lymphadenopathy REPRODUCTIVE ORGANS/ BLADDER: Hysterectomy. Bladder is mildly distended but otherwise unremarkable. SOFT TISSUES: Unremarkable BONES: There are scattered degenerative zuniga es, worse at L5-S1. IMPRESSION: No acute abnormality. Signed by: Dr Ash Elliott MD on 11/09/2017 8:43 PM Dictated By: ASH ELLIOTT MD 42 Transcribed By: JENNIFER on 11/09/172042 COPY TO: MIKEY FLORENTINO MD
--- OUTSIDE RECORDS SUMMARY | 2020-02-26 17:42 | XMS REPORT | Clinical Summary ---
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 Last Filed Vital Signs Not on file Plan of Treatment Health Maintenance Due Date Last Done Comments BREAST CANCER SCREENING 2003 COLONOSCOPY SCREENING 2003 SHINGLES VACCINES (#1) 2003 65+ PNEUMOCOCCAL VACCINE 2018 (1 of 2 - PCV13) INFLUENZA VACCINE 04/22/2020 Results Not on fileafter 02/25/2019 Insurance Type Payer Benefit Subscriber ID Effective Phone Address Plan / Dates Group HMO [employer] CIGNA xxxxxxxxx 2017-P [facility] [facility] Advance Directives For more information, please contact: [phone] Patient Intelligence Support Officer Explanation Type Date Recorded Advance Directives, Living Will and Medical Power of Malted Milk Supervisor Date Inactivated Comments Code Status Date Activated 11/25/2017 1:55 PM Full Code 11/25/2017 7:39 AM Code Status decision reached by: Patient
[2020-02-26] MEDS ORDERED: PANTOPRAZOLE 40 MG 10ML VIAL IV STA (18:05)
[2020-02-26] MEDS ORDERED: ONDANSETRON HCL INJ 2MG/ML 2ML 2 MG/ML VIAL IV STA (18:05)
[2020-02-26] MEDS ORDERED: SODIUM CHLORIDE 0.9% 1000ML 1,000 ML IV STA (18:05)
[2020-02-26 18:53] LABS: BILIRUBIN,URINE NEGATIVE (NEGATIVE); CLARITY,URINE HAZY (CLEAR); COLOR,URINE YELLOW (YELLOW); KETONES,URINE NEGATIVE (NEGATIVE); LEUKOCYTE ESTERASE ,URINE LARGE (NEGATIVE); NITRITE,URINE POSITIVE (NEGATIVE); PROTEIN,URINE DIPSTICK NEGATIVE (NEGATIVE); URINE UROBILINOGEN 0.2 mg/dL (0.2 - 1)
[2020-02-26 18:54] LABS: BACTERIA,URINE MANY /HPF; EPITHELIAL CELLS,URINE FEW /LPF; WBC,URINE (MAN) 21-50 /HPF (0-5)
[2020-02-26 18:55] LABS: MUCUS,URINE MODERATE (RARE)
[2020-02-26] MEDS ORDERED: MORPHINE SULFATE 2 MG/ML SYR 1ML IV STA ×2 (19:18→23:43)
[2020-02-26 19:27] LABS: BASOPHILS % 0.6 % (0.0-1.0); EOSINOPHILS % 0.7 % (0.0-6.0); HEMOGLOBIN 10.1 g/dL (12.0-16.0); MEAN CORPUSCULAR HEMOGLOBIN 26.2 pg (28-32); MEAN CORPUSCULAR HGB CONC 30.6 g/dL (31-35); MEAN CORPUSCULAR VOLUME 85.7 fL (81-99); MONOCYTES # (AUTO) 0.4 (0.2-0.8); MONOCYTES % 7.1 % (4.4-11.3); NEUTROPHILS # (AUTO) 3.9 (2.1-6.9); PLATELET COUNT 258 x10e3/uL (140-360); RED BLOOD COUNT 3.85 x10e6/uL (3.6-5.1); RED CELL DISTRIBUTION WIDTH 14.8 % (11.7-14.4)
--- NOTE | 2020-02-26 19:27 | Diagnostic Imaging Report ---
EXAMINATION: CHEST SINGLE (PORTABLE) COMPARISON: Chest x-ray 12/11/2018 INDICATION: ^POSS ASPIRATION ^[id number] ^1830 DISCUSSION: Frontal view of the chest obtained at 1757 hours. HEART AND MEDIASTINUM: The heart is normal in size of cord is tortuous calcifications of the arch LINES: None. LUNGS: The lungs are well inflated and clear. No pneumonia or pulmonary edema. PLEURA: No pleural effusion or pneumothorax. BONES AND SOFT TISSUES: No focal osseous lesion. The soft tissues are normal. IMPRESSION: No acute cardiopulmonary disease. Signed by: Dr. Destinee Rascon MD on 02/26/2020 7:24 PM
--- NOTE | 2020-02-26 19:30 | NUR ---
Verified with patient there is no allergy to morphine. MD notifed as well.
--- NOTE | 2020-02-26 19:40 | Emergency Department Note ---
History of Present Illnes History of Present Illness Chief Complaint: Chest Pain History of Present Illness This is a 65 year old female patient presents with complaint of she was sleep 2 nights ago had reflux and aspirated. States ran a fever last night of 102 but has not had a fever since. Denies cough. No shortness of breath. However does complain of left-sided chest pain for over 24 hours and has been constant it starts in her left scapula and radiates around to the left lateral aspect of her chest. . Historian: Patient Arrival Mode: Car Onset (how long ago): day(s) (2) Location: chest Quality: pain to left lateral and posterior chest Radiation: non-radiation Severity: moderate Onset quality: sudden Duration (how long): day(s) (2) Progression: unchanged Chronicity: recurrent Context: recent illness, recent surgery Relieving factors: none Exacerbating factors: none Associated symptoms: denies other symptoms Treatments prior to arrival: none Past Medical/Family History Physician Review I have reviewed the patient's past medical and family history. Any updates have been documented here. Past Medical History Recent Fever: No Clinical Suspicion of Infectio: No New/Unexplained Change in Ment: No Past Medical History: GERD, Osteoarthritis Other Medical History: Diverliticulitis Bowel obstructions. Aspiration Pneumonia Past Surgical History: Cholecysctectomy, Hysterectomy, Bariatric Surgery, Colon Resection Other Surgery: Gastric Bypass 11 years ago Bowel Resection x3 Social History Smoking Cessation: Never Smoker Alcohol Use: None Any Illegal Drug Use: No Family History Family history of heart diseas: No Other family history htn Other Last Tetanus: 2010 Review of Systems Review of Systems Constitutional: no symptoms EENTM: no symptoms Cardiovascular: as per HPI Respiratory: as per HPI Gastrointestinal: no symptoms Genitourinary: no symptoms Musculoskeletal: no symptoms Neurological: no symptoms Psychological: no symptoms Endocrine: no symptoms Hematological/Lymphatic: no symptoms Review of other systems All other systems reviewed and negative. Physical Exam Related Data Allergies: Coded Allergies: No Known Allergies (Unverified , 02/26/20) Triage Vital Signs Vital Signs Date Time Temp Pulse Resp B/P (MAP) Pulse Ox O2 Delivery O2 Flow Rate FiO2 02/26/20 17:57 97.8 83 16 149/84 98 Vital signs reviewed: Yes Physical Exam CONSTITUTIONAL Constitutional: well-developed, well-nourished HENT HENT: normocephalic, atraumatic, oropharynx clear/moist, nose normal HENT L/R: left ext ear normal, right ext ear normal EYES Eyes: PERRL, conjunctivae normal NECK Neck: ROM normal PULMONARY Pulmonary: effort normal, breath sounds normal CARDIOVASCULAR Cardiovascular: regular rhythm, heart sounds normal, capillary refill normal, normal rate GASTROINTESTINAL Abdominal: soft, nontender, bowel sounds normal GENITOURINARY Genitourinary: exam deferred SKIN Skin: warm, dry MUSCULOSKELETAL Musculoskeletal: ROM normal NEUROLOGICAL Neurological: alert, oriented x 3, no gross motor or sensory deficits PSYCHOLOGICAL Psychological: mood/affect normal, judgement normal Results Laboratory Result Diagram: 02/26/20 1900 Laboratory Laboratory Tests Test 02/26/20 19:00 02/26/20 18:14 White Blood Count 5.34 x10e3/uL (4.8-10.8) Red Blood Count 3.85 x10e6/uL (3.6-5.1) Hemoglobin 10.1 g/dL (12.0-16.0) Hematocrit 33.0 % (34.2-44.1) Mean Corpuscular Volume 85.7 fL (81-99) Mean Corpuscular Hemoglobin 26.2 pg (28-32) Mean Corpuscular Hemoglobin Concent 30.6 g/dL (31-35) Red Cell Distribution Width 14.8 % (11.7-14.4) Platelet Count 258 x10e3/uL (140-360) Neutrophils (%) (Auto) 73.0 % (38.7-80.0) Lymphocytes (%) (Auto) 18.0 % (18.0-39.1) Monocytes (%) (Auto) 7.1 % (4.4-11.3) Eosinophils (%) (Auto) 0.7 % (0.0-6.0) Basophils (%) (Auto) 0.6 % (0.0-1.0) Neutrophils # (Auto) 3.9 (2.1-6.9) Lymphocytes # (Auto) 1.0 (1.0-3.2) Monocytes # (Auto) 0.4 (0.2-0.8) Eosinophils # (Auto) 0.0 (0.0-0.4) Basophils # (Auto) 0.0 (0.0-0.1) Absolute Immature Granulocyte (auto 0.03 x10e3/uL (0-0.1) Prothrombin Time 11.7 seconds (11.9-14.5) Prothromb Time International Ratio 0.81 Activated Partial Thromboplast Time 27.6 seconds (23.8-35.5) D-Dimer Quantitative (PE/DVT) 546.00 ng/mL (0-400) Sodium Level 137 mmol/L (136-145) Potassium Level 4.1 mmol/L (3.5-5.1) Chloride Level 105 mmol/L (98-107) Carbon Dioxide Level 25 mmol/L (22-29) Anion Gap 11.1 mmol/L (8-16) Blood Urea Nitrogen 14 mg/dL (7-26) Creatinine 0.87 mg/dL (0.57-1.11) Estimat Glomerular Filtration Rate > 60 ML/MIN (60-) BUN/Creatinine Ratio 16 (6-25) Glucose Level 89 mg/dL (74-118) Calcium Level 8.9 mg/dL (8.4-10.2) Aspartate Amino Transf (AST/SGOT) 14 IU/L (5-34) Alanine Aminotransferase (ALT/SGPT) 8 IU/L (0-55) Alkaline Phosphatase 96 IU/L (40-150) Creatine Kinase 33 IU/L (29-168) Creatine Kinase MB 0.70 ng/mL (0-5.0) Troponin I < 0.001 ng/mL (0-0.300) B-Type Natriuretic Peptide 14.1 pg/mL (0-100) Total Protein 6.9 g/dL (6.5-8.1) Albumin 3.2 g/dL (3.5-5.0) Globulin 3.7 g/dL (2.3-3.5) Albumin/Globulin Ratio 0.9 (0.8-2.0) Urine Color Yellow (YELLOW) Urine Clarity Hazy (CLEAR) Urine pH 8.5 (5 - 7) Urine Specific [place] 1.025 (1.010-1.025) Urine Protein Negative (NEGATIVE) Urine Glucose (UA) Negative (NEGATIVE) Urine Ketones Negative (NEGATIVE) Urine Blood Trace (NEGATIVE) Urine Nitrite Positive (NEGATIVE) Urine Bilirubin Negative (NEGATIVE) Urine Urobilinogen 0.2 mg/dL (0.2 - 1) Urine Leukocyte Esterase Large (NEGATIVE) Urine RBC 6-10 /HPF (0-5) Urine WBC 21-50 /HPF (0-5) Urine Epithelial Cells Few /LPF (NONE) Urine Bacteria Many /HPF (NONE) Urine Mucus Moderate (RARE) Laboratory Tests Test 02/26/20 19:00 02/26/20 18:14 White Blood Count 5.34 x10e3/uL (4.8-10.8) Red Blood Count 3.85 x10e6/uL (3.6-5.1) Hemoglobin 10.1 g/dL (12.0-16.0) Hematocrit 33.0 % (34.2-44.1) Mean Corpuscular Volume 85.7 fL (81-99) Mean Corpuscular Hemoglobin 26.2 pg (28-32) Mean Corpuscular Hemoglobin Concent 30.6 g/dL (31-35) Red Cell Distribution Width 14.8 % (11.7-14.4) Platelet Count 258 x10e3/uL (140-360) Neutrophils (%) (Auto) 73.0 % (38.7-80.0) Lymphocytes (%) (Auto) 18.0 % (18.0-39.1) Monocytes (%) (Auto) 7.1 % (4.4-11.3) Eosinophils (%) (Auto) 0.7 % (0.0-6.0) Basophils (%) (Auto) 0.6 % (0.0-1.0) Neutrophils # (Auto) 3.9 (2.1-6.9) Lymphocytes # (Auto) 1.0 (1.0-3.2) Monocytes # (Auto) 0.4 (0.2-0.8) Eosinophils # (Auto) 0.0 (0.0-0.4) Basophils # (Auto) 0.0 (0.0-0.1) Absolute Immature Granulocyte (auto 0.03 x10e3/uL (0-0.1) Urine Color Yellow (YELLOW) Urine Clarity Hazy (CLEAR) Urine pH 8.5 (5 - 7) Urine Specific [place] 1.025 (1.010-1.025) Urine Protein Negative (NEGATIVE) Urine Glucose (UA) Negative (NEGATIVE) Urine Ketones Negative (NEGATIVE) Urine Blood Trace (NEGATIVE) Urine Nitrite Positive (NEGATIVE) Urine Bilirubin Negative (NEGATIVE) Urine Urobilinogen 0.2 mg/dL (0.2 - 1) Urine Leukocyte Esterase Large (NEGATIVE) Urine RBC 6-10 /HPF (0-5) Urine WBC 21-50 /HPF (0-5) Urine Epithelial Cells Few /LPF (NONE) Urine Bacteria Many /HPF (NONE) Urine Mucus Moderate (RARE) Lab results reviewed: Yes Imaging Imaging results reviewed: Yes Impressions EXAMINATION: CHEST SINGLE (PORTABLE) COMPARISON: Chest x-ray 12/11/2018 INDICATION: ^POSS ASPIRATION ^[id number] ^[id number] DISCUSSION: Frontal view of the chest obtained at 1757 hours. HEART AND MEDIASTINUM: The heart is normal in size of cord is tortuous calcifications of the arch LINES: None. LUNGS: The lungs are well inflated and clear. No pneumonia or pulmonary edema. PLEURA: No pleural effusion or pneumothorax. BONES AND SOFT TISSUES: No focal osseous lesion. The soft tissues are normal. IMPRESSION: No acute cardiopulmonary disease. Signed by: Dr. Roxana Rascon MD on 02/26/2020 7:24 PM Dictated By: ROXANA RASCON MD 23 Transcribed By: JENNIFER on 02/26/201923 Perfusion Lung Scan NOTE: Lung ventilation studies with xenon are not being performed per the recommendation of the Society of Nuclear Medicine and Molecular Imaging. It is not possible to be certain that the ventilation system is adequately disinfected. Ventilation studies with Tc-99m DTPA particles is contraindicated because the delivery by nebulization generates too many water droplets from the patient's airway. Clinical Information: 65 F with left-sided chest pain Comparison: Chest radiograph 02/26/2020 Discussion: Ventilation images were not obtained. See note above. Perfusion images of the lungs were obtained in multiple projections following intravenous administration of approximately 6 mCi of Tc-99m MAA. Distribution of tracer is irregular throughout the lungs, There are no segmental perfusion defects of any size. The cardiomediastinal silhouette is unremarkable. Impression: 1. Scan findings represent a VERY LOW probability for acute pulmonary embolic disease based on the perfusion only PIOPED criteria. Ventilation imaging would not change the assigned probability. 2. Scan findings are compatible with diffuse parenchymal and/or obstructive lung disease. Signed by: Dr. Kaylin Castrejon M.D. on 02/26/2020 11:33 PM Procedures 12 Lead ECG Interpretation Process Equipment Operator: Interpreted by ELPIDIO physician Date: Feb 26, 2020 Time: 19:00 Rhythm: sinus rhythm Rate: normal BPM: 80 QRS axis: normal ST segments normal: Yes T waves normal: Yes Other findings: no other findings Clinical Impression: normal ECG Critical Care Time Subsequent provider I assumed direction of critical care for this patient from another provider of my specialty. Assessment & Plan Assessment & Plan Final Impression: (1) Chest wall pain (2) UTI (urinary tract infection) (3) GERD (gastroesophageal reflux disease) Assessment & Plan Patient presents with complaint of left lateral left back chest pain for greater than 24 hours and started after aspirating 2 days ago while asleep. Patient reports she has bad reflux and occasionally aspirates while sleeping. States she has aspirated multiple times in the last 10 years. Came in today because of the left side left back pain. CBC, CMP, cardiac enzymes, d-dimer, EKG, chest x-ray, UA ordered to eval for myocardial infarction, pneumonia, UTI, electrolyte abnormality, pulmonary embolus. Patient found to have an elevated d-dimer and VQ scan ordered to eval for pulmonary embolus. Patient also has a UTI Rocephin 1 g IV ordered. Patient's VQ scan low probability for pulmonary embolus. Patient discharged home with diagnosis of chest wall pain UTI. Patient discharged home on Omnicef 300 mg 1 by mouth twice a day for 10 days. Depart Disposition: HOME, SELF-CARE Last Vital Signs Date Time Temp Pulse Resp B/P (MAP) Pulse Ox O2 Delivery O2 Flow Rate FiO2 02/26/20 19:09 76 18 139/85 100 02/26/20 17:57 97.8 Home Meds Active Scripts Loperamide Hcl* (IMODIUM*) 2 Mg Cap, 2 MG PO Q6H PRN for diarrhea for 14 Days, CAP Prov:GIANFRANCO CUNHA MD 11/11/17 Levofloxacin (LEVAQUIN) 500 Mg Tablet, 500 MG PO DAILY for 7 Days Prov:GIANFRANCO CUNHA MD 11/11/17 Metronidazole (FLAGYL) 500 Mg Tablet, 500 MG PO TID for 7 Days Prov:GIANFRANCO CUNHA MD 11/11/17 Tramadol Hcl* (ULTRAM 50MG*) 50 Mg Tab, 50 MG PO Q8H PRN for PAIN, #20 TAB Prov:GIANFRANCO CUNHA MD 11/11/17 Reported Medications Clonazepam (CLONAZEPAM) 1 Mg Tablet, 1 MG PO TID, TAB 10/07/16 Esomeprazole Magnesium (NEXIUM) 40 Mg Capsule.dr, 40 MG PO DAILY PROTONIX THERAPE[facility] SUBSTITUTE FOR NEXIUM PER [facility] 10/07/16 Metoprolol Succinate (METOPROLOL SUCCINATE) 25 Mg Tab.er.24h, 25 MG PO PRN 08/03/16 Hydrocodone Bit/Acetaminophen (NORCO 10-325 TABLET) 1 Each Tablet, 10 MG Q4HR, #50 06/23/15 Zolpidem Tartrate (AMBIEN) 5 Mg Tablet, 10 MG PO BEDTIME, TAB 07/06/14 Medications in the ED Pantoprazole Sodium 40 mg ONCE STAT IV Last administered on 02/26/20at 19:19; Admin Dose 40 MG; Start 02/26/20 at 18:05; Stop 02/26/20 at 18:13; Status DC Ondansetron HCl 4 mg ONCE STAT IV Last administered on 02/26/20at 19:19; Admin Dose 4 MG; Start 02/26/20 at 18:05; Stop 02/26/20 at 18:13; Status DC Sodium Chloride 1,000 ml @ 0 mls/hr Q0M STAT IV Last administered on 02/26/20at 19:19; Admin Dose 999 MLS/HR; Start 02/26/20 at 18:05; Stop 02/26/20 at 18:08; Status DC Morphine Sulfate 2 mg NOW STAT IV ; Start 02/26/20 at 19:18; Stop 02/26/20 at 19:24; Status DC RAMÍREZ RAYMOND MD Feb 26, 2020 19:40
[2020-02-26 19:42] LABS: INR 0.81; PROTHROMBIN TIME 11.7 seconds (11.9-14.5)
[2020-02-26 19:43] LABS: PARTIAL THROMBOPLASTIN TIME 27.6 seconds (23.8-35.5)
[2020-02-26 19:53] LABS: ALANINE AMINOTRANSFERASE 8 IU/L (0-55); ALBUMIN 3.2 g/dL (3.5-5.0); ALBUMIN/GLOBULIN RATIO 0.9 (0.8-2.0); ALKALINE PHOSPHATASE 96 IU/L (40-150); ANION GAP 11.1 mmol/L (8-16); BLOOD UREA NITROGEN 14 mg/dL (7-26); BUN/CREATININE RATIO 16 (6-25); CALCIUM 8.9 mg/dL (8.4-10.2); CARBON DIOXIDE 25 mmol/L (22-29); CHLORIDE 105 mmol/L (98-107); CREATINE KINASE 33 IU/L (29-168); CREATININE, SERUM 0.87 mg/dL (0.57-1.11); EST GLOMERULAR FILTRATION RATE > 60 ML/MIN (60-); GLUCOSE 89 mg/dL (74-118); POTASSIUM 4.1 mmol/L (3.5-5.1); SODIUM 137 mmol/L (136-145)
[2020-02-26] MEDS ORDERED: CEFTRIAXONE SOD 1 GM/NS 50 ML 50 ML IV ONE (20:30)
--- NOTE | 2020-02-26 23:36 | Diagnostic Imaging Report ---
Perfusion Lung Scan NOTE: Lung ventilation studies with xenon are not being performed per the recommendation of the Society of Nuclear Medicine and Molecular Imaging. It is not possible to be certain that the ventilation system is adequately disinfected. Ventilation studies with Tc-99m DTPA particles is contraindicated because the delivery by nebulization generates too many water droplets from the patient's airway. Clinical Information: 65 F with left-sided chest pain Comparison: Chest radiograph 02/26/2020 Discussion: Ventilation images were not obtained. See note above. Perfusion images of the lungs were obtained in multiple projections following intravenous administration of approximately 6 mCi of Tc-99m MAA. Distribution of tracer is irregular throughout the lungs, There are no segmental perfusion defects of any size. The cardiomediastinal silhouette is unremarkable. Impression: 1. Scan findings represent a VERY LOW probability for acute pulmonary embolic disease based on the perfusion only PIOPED criteria. Ventilation imaging would not change the assigned probability. 2. Scan findings are compatible with diffuse parenchymal and/or obstructive lung disease. Signed by: Dr. Kaylin Castrejon M.D. on 02/26/2020 11:33 PM
[2020-02-27] VITALS: BP 140/78
== END 2020-02-27 00:19 | disposition home or self-care (01) ==
LOC: ER 17:37
DX: R07.89 Other chest pain (principal); K21.9 Gastro-esophageal reflux disease without esophagitis; N39.0 Urinary tract infection, site not specified; Z87.19 Personal history of other diseases of the digestive system
CPT/HCPCS: 36415; 71045; 78580; 80053; 81001; 82550; 82553; 83880; 84484; 85025; 85379; 85610; 85730; 87040; 87086; 99284; A9540; C9113; J0696; J2270; J2405; J7030; 87186; 93005

== ENCOUNTER 2020-08-16 03:03 | Emergency (ER) | payer MEDICARE ==
[~2020-08-16] VITALS: Ht 162.6 cm; Wt 81.6 kg
[2020-08-16] MEDS ORDERED: ONDANSETRON HCL INJ 2MG/ML 2ML 2 MG/ML VIAL IV STA (03:06)
[2020-08-16] MEDS ORDERED: MORPHINE SULFATE INJ 4 MG/ML INJ 1ML IV STA (03:06)
[2020-08-16] MEDS ORDERED: PANTOPRAZOLE 40 MG 10ML VIAL IV STA (03:06)
--- OUTSIDE RECORDS SUMMARY | 2020-08-16 03:15 | XMS REPORT | Continuity of Care Document ---
Author Author [facility] t Organization [facility] Address [address] [place] [address] Phone Unavailable Care Team Providers Care Squeak Rattle And Leak Repairer Name Role Phone Inder SEXTON III PCP Rebekah RAYMOND Attphys Unavailable Lillie CHANDLER Attphys Unavailable Elisa FLORENTINO Attphys Unavailable ANDREW LOZA Admphys Unavailable Payers Payer Name Policy Type Policy Number Effective Date Expiration Date Kendrick Wills [facility] [id number] 2018 00:00:00 [facility] Problems Condition Name Condition Details Condition Category Status Onset Date Resolution Date Last Treatment Date Treating Clinician Comments Source Pneumonia of right middle lobe due to infectious organ ism Pneumonia of right middle lobe due to infectious organism Disease Active 2017-11-25 00:00:00 Delfin Islas Atypical pneumonia Atypical pneumonia Disease Active 2017-11-25 00:00:0 0 Delfin Islas Acute diarrhea Acute diarrhea Problem Active [facility] Chest pain Chest pain Problem Active C [facility] Chronic abdominal pain Chronic abdominal pain Problem Active [facility] Slow transit constipation 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 Problem Active [facility] Hypoglycemia Hypoglycemia Problem Active [facility] Chest wall pain Problem Active [facility] Urinary tract infection Problem Active [facility] Gastroesophageal reflux disease Problem Active [facility] Allergies, Adverse Reactions, Alerts Allergy Name Allergy Type Status Severity Reaction(s) Onset Date Inacti ve Date Treating Clinician Comments Source Morphine Propensity to adverse reactions to drug Active Hives 2017-11-24 00:00:00 Blisters Delfin weber No Known Allergies DA Active U 2015-05-28 00:00:00 [facility] Social History Social Habit Start Date Stop Date Quantity Comments Source Sex [place] alvarez Janel Tobacco use and exposure 2017-11-25 00:00:00 2017-11-25 00:00:00 Cecilia colvin used Delfin Islas Alcohol intake 2017-11-25 00:00:00 2017-11-25 00:00:00 Current [...] mouth nightly as needed for sleep. Delfin Islas cholecalciferol, vitamin D3, (VITAMIN D3) 1,000 unit tablet 2017-11-26 18:50:20 Yes 1000U QD Take 1,000 Units by mouth demetris ly. Delfin Islas ascorbic acid, vitamin C, (VITAMIN C) 500 MG tablet 11-26 18:50:20 Yes 500mg QD Take 500 mg by mouth daily. Delfin Islas TURMERIC ROOT EXTRACT ORAL 2017-11-26 18:50:20 Yes 1{tbl} Take 1 tablet by mouth daily. Delfin Islas Loperamide Hcl (Imodium*) 2 Mg CAP Loperamide Hcl (Imodium*) 2 Mg CAP 2017-11-11 06:17:00 Yes 2 Every 6 Hours as needed for D iarrhea [facility] Levofloxacin (Levaquin) 500 Mg TABLET Levofloxacin (Levaquin ) 500 Mg TABLET 2017-11-11 06:16:00 Yes 500 Daily [facility] Metronidazole (Flagyl) 500 Mg TABLET Metronidazole (Flagyl) 500 Mg TABLET 2017-11-11 06:16:00 Yes 500 Three Times A Day [facility] Tramadol Hcl (Ultram 50MG*) 50 Mg TAB Tramadol Hcl (Ultram 5 0MG*) 50 Mg TAB 2017-11-11 06:16:00 Yes 50 Every 8 Hours as n eeded for Pain [facility] Clonazepam Clonazepam Yes 1 Three Times A Day [facility] Esomeprazole Magnesium (Nexium) 40 Mg CAPSULE.DR Oliver prazole Magnesium (Nexium) 40 Mg CAPSULE. Yes 40 Daily [facility] Hydrocodone Bit/Acetaminophen (Oden 10-325 Tablet) 1 Each TABLET Hydrocodone Bit/Acetaminophen (Oden 10-325 Tablet) 1 Each TABLET Yes 10 Every 4 Hours [facility] Metoprolol Succinate Metoprolol Succinate Yes 25 As Needed [facility] Zolpidem Tartrate (Ambien) 5 Mg TABLET Zolpidem Tartrate (Ambien ) 5 Mg TABLET Yes 10 Bedtime [facility] Calcium Carbonate/Vitamin D3 (Calcium 500+D Tablet Katerine w) 1 Each TAB.CHEW Calcium Carbonate/Vitamin D3 (Calcium 500+D Tablet Chew) 1 Each TAB.CHEW 2016-10-07 00:00:00 No 2 Daily [facility] Clonazepam Clonazepam 2016-10-07 00:00:00 No .5 Demetris ly [facility] Ferrous Sulfate Ferrous Sulfate 2016-02-19 00:00:00 No 325 Daily [facility] Metoprolol Tartrate Metoprolol Tartrate 2016-02-19 00:00:00 No 50 Daily [facility] Hydrocodone Bit/Acetaminophen (Oden 5-325 Tablet) 1 E ach TABLET Hydrocodone Bit/Acetaminophen (Oden 5-325 Tablet) 1 Each TABLET 2015-06-23 00: 00:00 No 1 Q4-6 Hrs as needed for Pain [facility] Clomiphene Citrate (Serophene) 50 Mg TABLET Clomiphene Citrate (Serophene) 50 Mg TABLET 2014-04-11 00:00:00 No 50 At Bedtime [facility] Clonazepam Clonazepam 2014-04-11 00:00:00 No .5 As Needed [facility] Esomeprazole Mag Trihydrate (Nexium) 40 Mg CAPSULE. Esomeprazole Mag Trihydrate (Nexium) 40 Mg CAPSULE. 2014-04-11 00:00:00 No 1 Daily [facility] Losartan Potassium Losartan Potassium 2014-04-11 00:00:00 No 50 Daily [facility] Metoprolol Succinate (Toprol Xl) 50 Mg TAB.SR.24H Meto prolol Succinate (Toprol Xl) 50 Mg TAB.SR.24H 2014-04-11 00:00:00 No 50 Demetris ly [facility] Zolpidem Tartrate (Ambien) 10 Mg TABLET Zolpidem Tartrate (A mbien) 10 Mg TABLET 2014-04-11 00:00:00 No 10 Bedtime [facility] Paroxetine Hcl (Paxil) 40 Mg TABLET Paroxetine Hcl (Paxil) 40 Mg TABLET 2013-04-19 00:00:00 No 1 Daily [facility] Quetiapine Fumarate (Seroquel) 50 Mg TABLET Quetiapine Fumarate (Seroquel) 50 Mg TABLET 2013-04-19 00:00:00 No 1 Daily [facility] Vital Signs Vital Name Observation Time Observation Value Comments Source Weight 2020-02-26 17:57:00 167 [lb_av] [facility] BMI (Body Mass Index) 2020-02-26 17:57:00 28.7 kg/m2 [facility] Procedures This patient has no known procedures. Plan of Care Planned Activity Planned Date Details Comments Source Future Scheduled Test 2020-04-22 00:00:00 INFLUENZA VACCINE [code = INFLUENZA VACCINE] [facility] Scheduled Test 2018 00:00:00 65+ PNEUMOCOCCAL V ACCINE (1 of 1 - PPSV23) [code = 65+ PNEUMOCOCCAL VACCINE (1 of 1 - PPSV23)] [facility] Scheduled Test 2003 00:00:00 BREAST CANCER SCRE ENING [code = BREAST CANCER SCREENING] [facility] Scheduled Test 2003 00:00:00 COLONOSCOPY SCREEN ING [code = COLONOSCOPY SCREENING] [facility] Scheduled Test 2003 00:00:00 SHINGLES VACCINES (#1) [code = SHINGLES VACCINES (#1)] [facility] Instructions Chest Pain - Chest Wall [facility] Instructions Urinary Tract Infection - Women [facility] Encounters Start Date/Time End Date/Time Encounter Type Admission Type Attendi [facility] Care Department Encounter ID Source 2020-02-26 17:37:00 2020-02-27 00:19:00 Departed Emergency Room 1 RAMÍREZ RAYMOND [facility] [id number] I [facility] 2018-12-11 13:35:00 2018-12-11 13:35:00 Registered Emergency Room 1 GLORIA CHANDLER [facility] [id number] [facility] 2018-10-31 12:57:00 2018-10-31 16:54:00 Departed Emergency Room 1 GLORIA CHANDLER [facility] [id number] [facility] 2018-02-16 03:28:00 2018-02-16 06:00:00 Departed Emergency Room 1 RAMÍREZ RAYMOND [facility] [id number] [facility] 2017-12-18 12:36:00 2017-12-18 19:05:00 Departed Emergency Room [facility] [id number] [facility] 2017-11-09 21:23:00 2017-11-11 14:01:00 Discharged Inpatient (obs) ER MIKEY FLORENTINO [facility] [id number] [facility] Results Test Description Test Time Test Comments Results Result Comments Source LUNG PERFUSION 2020-02-26 23:28:00 [place] [address] Patient Name: YASMINE FELIX MR #: [id number] : 1955 Age/Sex: 65/F Req #: [id number] Adm Physician: Ordered by: RAMÍREZ RAYMOND MD Report #: [id number] Location: ER Room/Bed: Procedure: NM/LUNG PERFUSION Exam Date: 02/26/20 Exam Time: 2300 REPORT STATUS: Signed Perfusion Lung Scan NOTE: Lung ventilation studies with xenon are not being performed per the recommendation of the Society of Nuclear Medicine and Molecular Imaging. It is not possible to be certain that the ventilation system is adequately disinfected. Vent ilation studies with Tc-99m DTPA particles is contraindicated because the delivery by nebulization generates too many water droplets from the patient's airway. Clinical Information: 65 F with left-sided chest pain Comparison: Chest radiograph 02/26/2020 Discussion: Ventilation images were not obtained. See note above. Perfusion images of the lungs were obtained in multiple projections following intravenous administration of approximately 6 mCi of Tc-99m MAA. Distribution of tracer is irregular throughout the lungs, There are no segmental perfusion defects of any size. The cardiomediastinal silhouette is unremarkable. Impression: 1. Scan findings represent a VERY LOW probability for acute pulmonary embolic disease based on the perfusion only PIOPED criteria. Ventilation imaging would not change the assigned probability. 2. Scan findings are compatible with diffuse parenchymal and/or obstructive lung disease. Signed by: Dr. Tommy Castrejon M.D. on 02/26/2020 11:33 PM Dictated By: TOMMY CASTREJON MD 32 Transcribed By: JENNIFER on 02/26/202332 COPY TO: RAMÍREZ RAYMOND MD CHEST SINGLE (PORTABLE) 2020-02-26 19:15:00 [place] [address] Patient Name: YASMINE FELIX MR #: [id number] : 1955 Age/Sex: 65/F Req #: [id number] Adm Physician: Ordered by: AZAR ALANIZ MD Report #: [id number] Location: ER Room/Bed: Procedure: [id number] DX/CHEST SINGLE (PORTABLE) Exam Date: 02/26/20 Exam Time: 1830 REPORT STATUS: Signed EXAMINATION: CHEST SINGLE (PORTABLE) COMPARISON: Chest x-ray 12/11/2018 INDICATION: POSS ASPIRATION [id number] DISCUSSION: Frontal view of the chest obtained at 1757 hours. HEART AND MEDIASTINUM: The heart is normal in size of cord is tortuous calcifications of the arch LINES: None. LUNGS: The lungs are well inflated and clear. No pneumonia or pulmonary edema. PLEURA: No pleural effusion or pneumothorax. BONES AND SOFT TISSUES: No focal osseous lesion. The soft tissues are normal. IMPRESSION: No acute cardiopulmonary disease. Signed by: Dr. Roxana Omer MD on 02/26/2020 7:24 PM Dictated By: ROXANA OMER MD 23 Transcribed By: JENNIFER on 02/26/201923 COPY TO: AZAR ALANIZ MD Blood leukocytes automated count (number/volume) 2020-02-26 19:00:00 Test Item White Blood Count (test code = 6690-2) 5.34 4.8-10.8 [facility] erythrocytes automated count (number/volume)2020-02-26 19:00:00* Test Item Value Reference Range Interpretation Comments Red Blood Count (test code = 789-8) 3.85 3.6-5.1 [facility] hemoglobin measurement (moles/volume)2020-02-26 19:00:00* Test Item Value Reference Range Interpretation Comments Hemoglobin (test code = 81998-3) 10.1 12.0-16.0 [facility]hamAutomated blood hematocrit (volume fraction)2020-02-26 19:00:00* Test Item Value Reference Range Interpretation Comments Hematocrit (test code = 4544-3) 33.0 34.2-44.1 [facility]hamAutomated erythrocyte mean corpuscular [id number] 19:00:00* Test Item Value Reference Range Interpretation Comments Mean Corpuscular Volume (test code = 787-2) 85.7 81-99 [facility]hamAutomated erythrocyte mean corpuscular hemoglobin (mass per erythrocyte)2020-02-26 19:00:00* Test Item Value Reference Range Interpretation Comments Mean Corpuscular Hemoglobin (test code = 785-6) 26.2 28-32 [facility]hamAutomated erythrocyte mean corpuscular hemoglobin concentration measurement (mass/volume)2020-02-26 19:00:00* Test Item Value Reference Range Interpretation Comments Mean Corpuscular Hemoglobin Concent (test code = 786-4) 30.6 31-35 [facility]hamRDW [id number]-[id number] 19:00:00* Test Item Value Reference Range Interpretation Comments Red Cell Distribution Width (test code = 73292-6) 14.8 11.7 -14.4 [facility]hamAutomated blood platelet count (count/volume)2020-02-26 19:00:00* Test Item Value Reference Range Interpretation Comments Platelet Count (test code = 777-3) 258 140-360 [facility]hamAutomated blood segmented neutrophil count as percentage of total [id number] 19:00:00* Test Item Value Reference Range Interpretation Comments Neutrophils (%) (Auto) (test code = 42655-1) 73.0 38.7-80.0 [facility]hamAutomated blood lymphocyte count as percentage ot total [id number] 19:00:00* Test Item Value Reference Range Interpretation Comments Lymphocytes (%) (Auto) (test code = 736-9) 18.0 18.0-39.1 [facility]hamAutomated blood monocyte count as percentage of total rrriwyucgb1249-87-70 19:00:00* Test Item Value Reference Range Interpretation Comments Monocytes (%) (Auto) (test code = 5905-5) 7.1 4.4-11.3 [facility]hamAutomated blood eosinophil count as percentage of total [id number] 19:00:00* Test Item Value Reference Range Interpretation Comments Eosinophils (%) (Auto) (test code = 713-8) 0.7 0.0-6.0 [facility]hamAutomated blood basophil count as percentage of total [id number] 19:00:00* Test Item Value Reference Range Interpretation Comments Basophils (%) (Auto) (test code = 706-2) 0.6 0.0-1.0 [facility]hamFluoroscopic procedure less than one hour [id number] 19:00:00* Test Item Value Reference Range Interpretation Comments IM GRANULOCYTES % (test code = IM GRANULOCYTES %) 0.6 0.0- 1.0 [facility]hamAutomated blood neutrophil count 2020-02-26 19:00:00* Test Item Value Reference Range Interpretation Comments Neutrophils # (Auto) (test code = 751-8) 3.9 2.1-6.9 [facility]ham[facility] lymphocytes count (number/volume) 2020-02-26 19:00:00* Test Item Value Reference Range Interpretation Comments Lymphocytes # (Auto) (test code = 37832-6) 1.0 1.0-3.2 [facility]hamBlst[facility] monocytes automated count (number/volume)2020-02-26 19:00:00* Test Item Value Reference Range Interpretation Comments Monocytes # (Auto) (test code = 742-7) 0.4 0.2-0.8 [facility]hamAutomated blood eosinophil count 2020-02-26 19:00:00* Test Item Value Reference Range Interpretation Comments Eosinophils # (Auto) (test code = 711-2) 0.0 0.0-0.4 [facility]hamAutomated blood basophil count (count/volume)2020-02-26 19:00:00* Test Item Value Reference Range Interpretation Comments Basophils # (Auto) (test code = 704-7) 0.0 0.0-0.1 [facility]hamFluoroscopic procedure less than one hour [id number] 19:00:00* Test Item Value Reference Range Interpretation Comments Absolute Immature Granulocyte (auto (ponce t code = Absolute Immature Granulocyte (auto) 0.03 0-0.1 [facility]hamProthrombin time (PT) in platelet poor plasma by coagulation [id number] 19:00:00* Test Item Value Reference Range Interpretation Comments Prothrombin Time (test code = 5902-2) 11.7 11.9-14.5 [facility]hamINR in Platelet poor plasma by Coagulation [id number] 19:00:00* Test Item Value Reference Range Interpretation Comments Prothromb Time International Ratio (test code = 6301-6) 0.81 Oral Anticoagulant Therapy INR Values:1. Low Intensity Therapy 1.5 - 2.02 . Moderate Intensity Therapy 2.0 - 3.03. High Intensity Therapy(1) 2.5 - 3. 54. High Intensity Therapy(2) 3.0 - 4.05. Panic Value INR > 5.0 [facility]hamActivated partial thromboplastin time (aPTT) in platelet poor plasma by coagulation [id number] 19:00:00* Test Item Value Reference Range Interpretation Comments Activated Partial Thromboplast Time (test code = 96665-4) 27.6 23.8-35.5 [facility] BrenhamFibrin D-dimer DDU measurement in platelet poor plasma (mass/volume)2020-02-26 19:00:00* Test Item Value Reference Range Interpretation Comments D-Dimer Quantitative (PE/DVT) (test code = 51873-5) 546.00 0- 400 As with all in vitro diagnostic tests, the test results should be interpreted by the physician in conjunction with clinical findings and other test results.Test results are reported in NEW D-dimer units(ug/mLFEU).[facility] Hospitalerum or plasma sodium measurement (moles/volume)2020-02-26 19:00:00* Test Item Value Reference Range Interpretation Comments Sodium Level (test code = 2951-2) 137 136-145 [facility] Hospitalerum or plasma potassium measurement (moles/volume)2020-02-26 19:00:00* Test Item Value Reference Range Interpretation Comments Potassium Level (test code = 2823-3) 4.1 3.5-5.1 [facility] Hospitalerum or plasma chloride measurement (moles/volume)2020-02-26 19:00:00* Test Item Value Reference Range Interpretation Comments Chloride Level (test code = 2075-0) 105 98-107 [facility] Hospitalerum or plasma carbon dioxide, total measurement (moles/volume)2020-02-26 19:00:00* Test Item Value Reference Range Interpretation Comments Carbon Dioxide Level (test code = 2028-9) 25 22-29 [facility] Hospitalerum or plasma anion [id number] 19:00:00* Test Item Value Reference Range Interpretation Comments Anion Gap (test code = 64746-1) 11.1 8-16 [facility] Hospitalerum or plasma urea nitrogen measurement (mass/volume)2020-02-26 19:00:00* Test Item Value Reference Range Interpretation Comments Blood Urea Nitrogen (test code = 3094-0) 14 7-26 [facility] Hospitalerum or plasma creatinine measurement (mass/volume)2020-02-26 19:00:00* Test Item Value Reference Range Interpretation Comments Creatinine (test code = 2160-0) 0.87 0.57-1.11 [facility] Hospitalerum or plasma urea nitrogen/creatinine mass [id number] 19:00:00* Test Item Value Reference Range Interpretation Comments BUN/Creatinine Ratio (test code = 3097-3) 16 6-25 [facility]hamEstimated glomerular filtration rate (GFR) ukwgcjlepoejg5830-35-53 19:00:00* Test Item Value Reference Range Interpretation Comments Estimat Glomerular Filtration Rate (test code = 072995259) > 60 >60 Ranges were taken from the National Kidney Disease Education Program and the [facility] [employer] [employer] literature.Reference ranges:60 or greater: Wrfgej67-43 ( for 3 consecutive months): Chronic kidney disease 15 or less: Kidney failureBaylor Scott & [facility] Center – BrenhamGlucose umwddcegffu6758-04-06 19:00:00* Test Item Value Reference Range Interpretation Comments Glucose Level (test code = JJI1309) 89 74-118 [facility] Hospitalerum or plasma calcium measurement (mass/volume)2020-02-26 19:00:00* Test Item Value Reference Range Interpretation Comments Calcium Level (test code = 00291-4) 8.9 8.4-10.2 [facility] Hospitalerum or plasma total bilirubin measurement (mass/volume)2020-02-26 19:00:00* Test Item Value Reference Range Interpretation Comments Total Bilirubin (test code = 1975-2) 0.3 0.2-1.[address] [facility] CenterFluor[facility] procedure less than one hour [id number] 19:00:00* Test Item Value Reference Range Interpretation Comments Aspartate Amino Transf (AST/SGOT) (test code = Aspartate Amino Transf (AST/SGOT)) 14 5-34 [facility] Hospitalerum or plasma alanine aminotransferase measurement (enzymatic activity/volume)2020-02-26 19:00:00* Test Item Value Reference Range Interpretation Comments Alanine Aminotransferase (ALT/SGPT) (test code = 1742-6) 8 0-55 [facility] Hospitalerum or plasma protein measurement (mass/volume)2020-02-26 19:00:00* Test Item Value Reference Range Interpretation Comments Total Protein (test code = 2885-2) 6.9 6.5-8.1 [facility] Hospitalerum or plasma albumin measurement (mass/volume)2020-02-26 19:00:00* Test Item Value Reference Range Interpretation Comments Albumin (test code = 1751-7) 3.2 3.5-5.0 [facility]hamPlasma globulin measurement (mass/volume) 2020-02-26 19:00:00* Test Item Value Reference Range Interpretation Comments Globulin (test code = 37640-3) 3.7 2.3-3.5 [facility] Hospitalerum or plasma albumin/globulin mass [id number] 19:00:00* Test Item Value Reference Range Interpretation Comments Albumin/Globulin Ratio (test code = 1759-0) 0.9 0.8-2.0 [facility] Hospitalerum or plasma alkaline phosphatase measurement (enzymatic activity/volume)2020-02-26 19:00:00* Test Item Value Reference Range Interpretation Comments Alkaline Phosphatase (test code = 6768-6) 96 40-150 [facility]hamBNP [id number] 19:00:00* Test Item Value Reference Range Interpretation Comments B-Type Natriuretic Peptide (test code = 67917-1) 14.1 0-100 [facility] Hospitalerum or plasma creatine kinase measurement (enzymatic activity/volume)2020-02-26 19:00:00* Test Item Value Reference Range Interpretation Comments Creatine Kinase (test code = 2157-6) 33 29-168 [facility] Hospitalerum or plasma creatine kinase MB measurement (mass/volume)2020-02-26 19:00:00* Test Item Value Reference Range Interpretation Comments Creatine Kinase MB (test code = 91384-8) 0.70 0-5.0 [facility]hamTroponin I measurement by highly sensitive enzyme [id number] 19:00:00* Test Item Value Reference Range Interpretation Comments Troponin I (test code = 41409-3) < 0.001 0-0.300 [facility]hamUrine color [id number] 18:14:00* Test Item Value Reference Range Interpretation Comments Urine Color (test code = 5778-6) YELLOW YELLOW [facility] BrenhamUrine [id number] 18:14:00* Test Item Value Reference Range Interpretation Comments Urine Clarity (test code = 28034-1) HAZY CLEAR [facility] Hospitalpecific gravity of Urine by Test strip 2020-02-26 18:14:00* Test Item Value Reference Range Interpretation Comments Urine Specific [place] (test code = 5811-5) 1.025 1.010-1.02 5 [facility]hamUrine pH measurement by automated test [id number] 18:14:00* Test Item Value Reference Range Interpretation Comments Urine pH (test code = 58426-7) 8.5 5-7 [facility] BrenhamUrine leukocyte esterase detection by [id number] 18:14:00* Test Item Value Reference Range Interpretation Comments Urine Leukocyte Esterase (test code = 5799-2) LARGE NEGATIVE [facility] BrenhamUrine nitrite [id number] 18:14:00* Test Item Value Reference Range Interpretation Comments Urine Nitrite (test code = 90447-1) POSITIVE NEGATIVE [facility]ham[facility]rine protein measurement by test strip (mass/volume)2020-02-26 18:14:00* Test Item Value Reference Range Interpretation Comments Urine Protein (test code = 5804-0) NEGATIVE NEGATIVE [facility]hamUrine glucose xdoblboyf6795-64-27 18:14:00* Test Item Value Reference Range Interpretation Comments Urine Glucose (UA) (test code = 2349-9) NEGATIVE NEGATIVE [facility]hamUrine ketones detection by automated test sosed3830-41-70 18:14:00* Test Item Value Reference Range Interpretation Comments Urine Ketones (test code = 55126-8) NEGATIVE NEGATIVE [facility]hamUrine urobilinogen measurement by test strip (mass/volume)2020-02-26 18:14:00* Test Item Value Reference Range Interpretation Comments Urine Urobilinogen (test code = 24359-3) 0.2 0.2-1 [facility]ham[facility]rine total bilirubin measurement (mass/volume)2020-02-26 18:14:00* Test Item Value Reference Range Interpretation Comments Urine Bilirubin (test code = 1978-6) NEGATIVE NEGATIVE [facility]hamU[facility] erythrocytes kxjusjjvi6466-58-29 18:14:00* Test Item Value Reference Range Interpretation Comments Urine Blood (test code = 90880-8) TRACE NEGATIVE [facility]hamAutomated urine sediment leukocyte count by microscopy (number/high power field)2020-02-26 18:14:00* Test Item Value Reference Range Interpretation Comments Urine WBC (test code = 5821-4) 21-50 0-5 [facility]hamErythrocytes detection in urine sediment by light hdgjwinjvr8802-06-21 18:14:00* Test Item Value Reference Range Interpretation Comments Urine RBC (test code = 39014-9) 6-10 0-5 [facility]hamBacteria detection in urine sediment by light tbicivffnq7445-00-83 18:14:00* Test Item Value Reference Range Interpretation Comments Urine Bacteria (test code = 39771-3) MANY NONE [facility]hamEpithelial cells detection in urine sediment by light xuwzqvlcme5708-59-35 18:14:00* Test Item Value Reference Range Interpretation Comments Urine Epithelial Cells (test code = 61854-9) FEW NONE [facility]hamMucus detection in urine sediment by light omsuftrylu8066-00-28 18:14:00* Test Item Value Reference Range Interpretation Comments Urine Mucus (test code = 8247-9) MODERATE RARE [facility]A CAD DIGITAL 2019-09-30 08:42:11 - SCR MAMM BILATERAL LAURA CAD DIGITALBILATERAL DIGITAL SCREENING MAMMOGRAM 3D/2D WITH CAD: 09/28/2019CLINICAL: Asymptomatic. Digital breast tomosynthesis was performed in addition to routine CC and MLO views. Current mammographic images were evaluated by either a Any[employer] M-Vu or a [employer] ImageChecker CAD (computer aided detection system). Comparison is made to exams dated 01/14/2018 mammogram, 10/15/2016 mammogram, and 09/28/2015 mammogram - [facility]-. There are scattered fibroglandular tissues in both breasts. There are benign vascular calcifications and calcifications in both breasts. No suspicious mass, architectural distortion, malignant type calcification, or lymph node abnormality detected. Breast architecture is stable compared to prior exams.IMPRESSION: BENIGNThere is no mammographic evidence of malignancy. Resume annual screening mammography in one year. Malcom Chase M.D. ss/penrad:09/30/2019 08:42:11 Preschool Paraprofessional: Rayne Segura , [facility]-FWletter sent: BIRADS 1- 2 Normal Mammogram BI-RADS: 2 Benign- CT ABD PELVIS W/JLMF1194-70-52 11:54:00 Name: YASMINE FELIX [facility] : 1955 Age/S: 64 / F [address] Unit #: [id number] Loc: [place] [address] Phys: Radhika Phillips MD Acct: [id number] Di s Date: Status: REG ER PHONE #: Exam Date: 08/24/2019 1053 FAX #: Reason: epigastric abd pain, nausea/vomiting, h/o ileus EXAMS: CPT CODE: [id number] CT ABD PELVIS W/CONT 06835 REASON FOR EXAM: epigastr ic abd pain, nausea/vomiting, h/o ileus/SBO EXAM ORDER DATE: 2018 9:41 AM Ordering MDenisseDDenisse: Nuvia Phillips MD PROCED URE: - CT ABD PELVIS W/CONT contrast-enhanced axial CT images were acqui red through the abdomen/pelvis at 5 mm intervals. Sagittal and coronal re formatted images were generated. Automated exposure control was utilized for this reduction. Phases of contrast: Venous ADARSH RISON: CT of the abdomen and pelvis March [...] are also anastomotic sutures in the pelvis sugges ting subsegmental colonic resection with a colorectal anastomosis. No abnormal bowel distention and no significant colonic stool burden. Appen indira is within normal limits. Abdominal vascular structures: Athero sclerotic plaques are scattered throughout the abdominal aorta Peritoneum and retroperitoneum: No free fluid or free air. No omental or mesenteric masses. No abnormal lymph nodes. Musculoskeletal st ructures and abdominal wall: Mild degenerative changes are present in the spine. PAGE 1 Signed Report (GUS NUED) Name: YASMINE FELIX [facility] : 1955 Age/S: 64 / F [address] Unit #: [id number] Loc: [place] [address] Phys: Nuvia Phillips MD Acct: [id number] Dis Date: Status: REG ER PHON E #: [phone] Exam Date: 08/24/2019 1055 FAX #: Reason: epigastric abd pain, nausea/vomiting, h/o ileus EXAMS : CPT CODE: [id number] CT ABD PELVIS W/CONT 68192 <Continued> IMPRESSION: No acute intra-abdominal process. Postsurgical changes of gastric bypass as well as findings suggesting segmental colonic resection with colorectal anastomosis. No abnormal distention of the bowel to suggest ileus or obstruction. Location: [facility] at 1154 Reported and signed by: Jonah Ellsworth MD CC: Nuvia Phillips MD; Enoch Sexton III, MD Technologist:Guerline Cervantes CTDI: DLP: Trnscb Date/Time: 08/24/2019 (8759) t.SDR.RR31 Orig Print D/T: S: 08/24/2019 (0323) PAGE 2 Signed Report - XR CHEST 1 [id number] 10:57:00 [facility] 1955 Age/S:64 /F [address] Unit#:[id number] Loc: [place], [place] [address] Phys: Nuvia Phillips MD Dis Date: PHONE #: [phone] Status: REG ER FAX #: [phone] Exam Date: 08/24/2019 Reason: epigastric abd pain EXAMS: CPT CODE: [id number] XR CHEST 1 V 20498 REASON FOR EXAM: epigastric abd pain Exam Order Date: 08/24/2019 9:41 AM Ordering M.D.: Nuvia Phillips MD PROCEDURE: - XR CHEST 1 V COMPARISON: Frontal chest x-ray August 14, 2011 FINDINGS: The lungs are [...] normal limits. IMPRESSION: No acute cardiopulmonary process. Locatio n: [facility] at 1057 Reported and signed by: Jonah Ellsworth MD CC: Nuvia Junior MD; Enoch Sexton III, MD Technologist: Guerline Cervantes Trnscrpt Data: 08/24/2019 (8987) tSohan ARCHERRR31 Orig Print D/T: S: 08/24/2019 (7085) PAGE 1 Signed Report [id number]-[id number] 10:47:00* Test Item Value Reference Range Interpretation Comments TROPONIN-I (test code = TROPI) <0.015 ng/mL 0.00-0.056 N COMPREHENSIVE METABOLIC TAHOP0175-57-14 10:31:00* Test Item Value Reference Range Interpretation [...] code = ALKP) 87 U/L 38-126 N YNTPUG9771-72-54 10:31:00* Test Item Value Reference Range Interpretation Comments LIPASE (test code = LIP) 302 U/L 128-270 H URINALYSIS SRFFREGM8932-31-08 10:28:00* Test Item Value Reference Range Interpretation [...] LPF NONE Urine Source? Clean CatchCOMPREHENSIVE METABOLIC ETWHD9551-44-64 10:20:00* Test Item Value Reference Range Interpretation [...] TOTAL (test code = ALKP) IUnit/L 45-117 LAATSI0200-54-02 10:20:00* Test Item Value Reference Range Interpretation Comments LIPASE (test code = LIP) Unit/L 144-286 URINALYSIS IYXJMILF9306-19-43 09:48:00* Test Item Value Reference Range Interpretation [...] HPF NONE Urine Source? Clean CatchCBC W/AUTO NYVK8043-08-87 09:46:00* Test Item Value Reference Range Interpretation [...] REQUIRED (test code = MDIFF) NO URINALYSIS HNGEGLQY1256-95-34 20:01:00* Test Item Value Reference Range Interpretation [...] HPF NONE Urine Source? Clean CatchBASIC METABOLIC [id number] 19:45:00* Test Item Value Reference Range Interpretation [...] CA) 9.2 mg/dL 8.4-10.2 N HEPATIC FUNCTION [id number] 19:45:00* Test Item Value Reference Range Interpretation [...] code = ALKP) 90 U/L 38-126 N AWJWIO7658-11-80 19:45:00* Test Item Value Reference Range Interpretation Comments LIPASE (test code = LIP) 271 U/L 128-270 H BASIC METABOLIC HCXVQ9148-58-33 19:35:00* Test Item Value Reference Range Interpretation [...] CA) 9.2 mg/dL 8.4-10.2 N HEPATIC FUNCTION BUGHS8433-89-47 19:35:00* Test Item Value Reference Range Interpretation [...] TOTAL (test code = ALKP) IUnit/L 45-117 RYCFBY9636-29-40 19:35:00* Test Item Value Reference Range Interpretation Comments LIPASE (test code = LIP) Unit/L 144-286 CBC W/O UCWG0993-26-57 19:24:00* Test Item Value Reference Range Interpretation [...] fL 6.7-11.0 N - CT ABD PELVIS W/QGFG5399-48-21 11:21:00 Name: YASMINE FELIX [facility] : 1955 Age/S: 64 / F [address] Unit #: [id number] Loc: [place] [address] Phys: Kannan Jiménez MD Acct: [id number] Dis Date: Status: REG ER PHONE #: [phone] Exam Date: 03/11/2019 1100 FAX #: [phone] Reason: upper abdominal pain, hx obstructions EXAMS: CPT CODE: [id number] CT ABD PELVIS W/CONT 24651 TECHNIQUE: - CT ABD PELVIS W/CONT . [...] 1 Signed Report (CONTINUED) Name: YASMINE FELIX [facility] : 1955 Age/S: 64 / F [address] Unit #: [id number] Loc: [place] [address] Phys: Kannan Jiménez MD Acct: [id number] Dis Date: Status: REG ER PHONE #: [phone] Exam Date: 03/11/2019 1100 FAX #: [phone] Reason: upper abdominal pain, hx obstructions EXAMS: CPT CODE: [id number] CT ABD PELVIS W/CONT 51426 < Continued> loops of bowel ,no evidence [...] CC: Kannan Jiménez MD; Foreign Rizo Technologist:ALE MAGANA RT(R),CT CTDI: DLP: Trnscb Date/Time: 03/11/2019 (1121) t.DEVON Orig Print D/T: S: 03/11/2019 (4685) PAGE 2 Signed Report BASIC METABOLIC [id number] 10:16:00* Test Item Value Reference Range Interpretation [...] CA) 9.0 mg/dL 8.4-10.2 N HEPATIC FUNCTION JRJTI0002-14-45 10:16:00* Test Item Value Reference Range Interpretation [...] code = ALKP) 109 U/L 38-126 N KXQDVD6630-75-12 10:16:00* Test Item Value Reference Range Interpretation Comments LIPASE (test code = LIP) 200 U/L 128-270 N URINALYSIS CMKVIRUD9083-67-13 10:04:00* Test Item Value Reference Range Interpretation [...] HPF NONE Urine Source? Clean CatchCBC W/O XEFQ6567-94-62 10:01:00* Test Item Value Reference Range Interpretation [...] = MPV) 9.7 fL 6.7-11.0 N URINALYSIS RVCHBNFV1276-51-24 10:01:00* Test Item Value Reference Range Interpretation [...] HPF NONE Urine Source? Clean CatchCHEST 2 SIULB5265-53-89 17:52:00 [place] [address] Patient Name: YASMINE FELIX MR #: [id number] : 1955 Age/Sex: 63/F Req #: [id number] Adm Physician: Ordered by: KELLI SNYDER FUNCTIONAL DIRECTOR Report #: [id number] Location: ER Room/Bed: Procedure: [id number] DX/CHEST 2 VIEWS Exam Date: 12/11/18 Exam [...] JENNIFER on 12/11/181752 COPY TO: KELLI SNYDER FUNCTIONAL DIRECTOR Influenza Virus Types A,B Antigen 2018-12-11 17:41:00* Test Item Value Reference Range Interpretation Comments Influenza Virus Types A,B Antigen (test code = 21050-7) NEGATIVE [facility]GATIVE [facility] [id number] 14:36:00 [place] [address] Patient Name: YASMINE FELIX MR #: [id number] : 1955 Age/Sex: 63/F Req #: [id number] Adm Physician: Ordered by: MARI VALENZUELA FUNCTIONAL DIRECTOR Report #: [id number] Location: ER Room/Bed: Procedure: [id number] DX/WR IST COMPLETE LEFT Exam Date: 10/31/18 [...] 2:38 PM Dictated By: SPIKE PAZ MD 37 Transcribed By: OLIVIA ARCE on 10/31/181437 COPY TO: MARI VALENZUELA NP CT CERVICAL SPINE [id number] 14:25:00 [place] [address] Patient Name: YASMINE FELIX MR #: [id number] : 1955 Age/Sex: 63/F Req #: [id number] Adm Physician: Ordered by: MARI VALENZUELA NP Report #: [id number] Location: ER Room/Bed: Procedure: [id number] CT/CT CERVICAL SPINE WO Exam Date: 10/31/18 [...] Signed By: MESFIN VELARDE MD on 10/31/18 1534 Transcribed By: JENNIFER on 10/31/18 1534 COPY TO: MARI VALENZUELA NP CT BRAIN [id number] 14:25:00 [place] [address] Patient Name: YASMINE FELIX MR #: [id number] : 1955 Age/Sex: 63/F Req #: [id number] Adm Physician: Ordered by: MARI VALENZUELA NP Report #: [id number] Location: Room/Bed: Procedure: [id number] CT/CT BRAIN WO Exam Date: 10/31/18 Exam [...] 3:34 PM Dictated By: MESFIN VELARDE MD 33 Transcribed By: JENNIFER on 10/31/181533 COPY TO: MARI VALENZUELA NP HIP LEFT 2-3 VW (+/- PELVIS) 2018-10-31 14:18:00 [place] [address] Patient Name: YASMINE FELIX MR #: [id number] : 1955 Age/Sex: 63/F Req #: [id number] Adm Physician: Ordered by: MARI VALENZUELA NP Report #: [id number] Location: ER Room/Bed: Procedure: [id number] DX/HI P LEFT 2-3 VW (+/- PELVIS) [...] onically Signed By: SPIKE PAZ MD on 10/31/181419 Transcribed By: JENNIFER on 0 10/31/181419 COPY TO: MARI VALENZUELA NP Troponin [id number] 05:02:00* Test Item Value Reference Range Interpretation Comments Troponin I (test code = JCI8793) -0.001 0-0.300 [facility]hamTropon Z2490-09-20 05:02:00* Test Item Value Reference Range Interpretation Comments Troponin I (test code = QZN6901) < 0.001 0-0.300 [facility] BrenhamTropon Y1458-77-03 05:02:00* Test Item Value Reference Range Interpretation Comments Troponin I (test code = SBG2857) < 0.001 0-0.300 [facility] Qzfbg0070-21-92 04:28:00* Test Item Value Reference Range Interpretation Comments Sodium Level (test code = 2951-2) 137 136-145 [facility]hamPotassium Bblwq5955-44-31 04:28:00* Test Item Value Reference Range Interpretation Comments Potassium Level (test code = 2823-3) 4.7 3.5-5.1 [facility] BrenhamChloride Mjral9104-94-58 04:28:00* Test Item Value Reference Range Interpretation Comments Chloride Level (test code = 2075-0) 106 98-107 [facility] BrenhamCarbon Dioxide Tpsbt4496-15-48 04:28:00* Test Item Value Reference Range Interpretation Comments Carbon Dioxide Level (test code = 2028-9) 21 22-29 L [facility] BrenhamAnion Cpk5078-76-35 04:28:00* Test Item Value Reference Range Interpretation Comments Anion Gap (test code = 62641-9) 14.7 8-16 [facility] BrenhamBlood Urea Ezhwegvj8518-65-75 04:28:00* Test Item Value Reference Range Interpretation Comments Blood Urea Nitrogen (test code = 3094-0) 10 7-26 [facility] BrenhamCreatinine2018-05-28 04:28:00* Test Item Value Reference Range Interpretation Comments Creatinine (test code = 2160-0) 0.69 0.57-1.11 [facility] BrenhamBUN/Creatinine Gzske3160-88-25 04:28:00* Test Item Value Reference Range Interpretation Comments BUN/Creatinine Ratio (test code = 3097-3) 14 6-25 [facility] BrenhamEstimat Glomerular Filtration Rate 2018-02-16 04:28:00* Test Item Value Reference Range Interpretation Comments Estimat Glomerular Filtration Rate (test code = 91128-8) 60- >60 Ranges were taken from the National Kidney Disease Education Program and the [facility] Kidney Foundation literature.Reference ranges:60 or greater: Ldofxl08-14 ( for 3 consecutive months): Chronic kidney disease 15 or less: Kidney failureBaylor Scott & White Medical Center – BrenhamGlucose Wgvbn6554-61-43 04:28:00* Test Item Value Reference Range Interpretation Comments Glucose Level (test code = PUA1040) 94 74-118 [facility] BrenhamCalcium Itdkk3995-30-49 04:28:00* Test Item Value Reference Range Interpretation Comments Calcium Level (test code = 10958-3) 9.0 8.4-10.2 [facility] BrenhamTotal Uimnungmf0744-63-23 04:28:00* Test Item Value Reference Range Interpretation Comments Total Bilirubin (test code = 1975-2) 0.6 0.2-1.2 [facility] BrenhamAspartate Amino Transf (AST/SGOT) 2018-02-16 04:28:00* Test Item Value Reference Range Interpretation Comments Aspartate Amino Transf (AST/SGOT) (test code = Aspartate Amino Transf (AST/SGOT)) 23 5-34 [facility] BrenhamAlanine Aminotransferase (ALT/SGPT) 2018-02-16 04:28:00* Test Item Value Reference Range Interpretation Comments Alanine Aminotransferase (ALT/SGPT) (test code = 1742-6) 13 0-55 [facility] BrenhamTotal Uyyedce1599-93-89 04:28:00* Test Item Value Reference Range Interpretation Comments Total Protein (test code = 2885-2) 7.5 6.5-8.1 [facility] BrenhamAlbumin2018-05-28 04:28:00* Test Item Value Reference Range Interpretation Comments Albumin (test code = 1751-7) 3.8 3.5-5.0 [facility] BrenhamGlobulin2018-05-28 04:28:00* Test Item Value Reference Range Interpretation Comments Globulin (test code = 40258-4) 3.7 2.3-3.5 H [facility] BrenhamAlbumin/Globulin Jiezp1307-96-42 04:28:00 * Test Item Value Reference Range Interpretation Comments Albumin/Globulin Ratio (test code = 1759-0) 1.0 0.8-2.0 [facility] BrenhamAlkaline Nuhuygreszz4621-73-98 04:28:00* Test Item Value Reference Range Interpretation Comments Alkaline Phosphatase (test code = 6768-6) 90 40-150 [facility] BrenhamCreatine Kcxpch9388-62-30 04:28:00* Test Item Value Reference Range Interpretation Comments Creatine Kinase (test code = 2157-6) 67 29-168 [facility] BrenhamCreatine Kinase [id number] 04:28:00* Test Item Value Reference Range Interpretation Comments Creatine Kinase MB (test code = 34143-0) 0.70 0-5.0 [facility] BrenhamAmylase Uuywg0563-32-85 04:28:00* Test Item Value Reference Range Interpretation Comments Amylase Level (test code = 1798-8) 68 25-125 [facility] BrenhamLipase2018-05-28 04:28:00* Test Item Value Reference Range Interpretation Comments Lipase (test code = 3040-3) 37 8-78 [facility] Hospitalodium Bkbux5939-20-44 04:28:00* Test Item Value Reference Range Interpretation Comments Sodium Level (test code = 2951-2) 137 136-145 [facility] BrenhamPotassium Gwlht9807-61-74 04:28:00* Test Item Value Reference Range Interpretation Comments Potassium Level (test code = 2823-3) 4.7 3.5-5.1 [facility] BrenhamChloride Gebzy8397-65-50 04:28:00* Test Item Value Reference Range Interpretation Comments Chloride Level (test code = 2075-0) 106 98-107 [facility] BrenhamCarbon Dioxide Iwinj3885-42-64 04:28:00* Test Item Value Reference Range Interpretation Comments Carbon Dioxide Level (test code = 2028-9) 21 22-29 L [facility] BrenhamAnion Gfj2569-60-26 04:28:00* Test Item Value Reference Range Interpretation Comments Anion Gap (test code = 82778-8) 14.7 8-16 [facility] BrenhamBlood Urea Azkyosqx0469-68-22 04:28:00* Test Item Value Reference Range Interpretation Comments Blood Urea Nitrogen (test code = 3094-0) 10 7-26 [facility] BrenhamCreatinine2018-05-28 04:28:00* Test Item Value Reference Range Interpretation Comments Creatinine (test code = 2160-0) 0.69 0.57-1.11 [facility]hamBUN/Creatinine Adrfh7513-88-69 04:28:00* Test Item Value Reference Range Interpretation Comments BUN/Creatinine Ratio (test code = 3097-3) 14 6-25 [facility] BrenhamEstimat Glomerular Filtration Rate 2018-02-16 04:28:00* Test Item Value Reference Range Interpretation Comments Estimat Glomerular Filtration Rate (test code = 439730205) > 60 >60 Ranges were taken from the National Kidney Disease Education Program and the [facility] Kid[facility] Foundation literature.Reference ranges:60 or greater: Pybrmr68-62 ( for 3 consecutive months): Chronic kidney disease 15 or less: Kidney failureBaylor Scott & White Medical Center – BrenhamGlucose Kjcay8510-28-73 04:28:00* Test Item Value Reference Range Interpretation Comments Glucose Level (test code = XHV2622) 94 74-118 [facility] BrenhamCalcium Juykp1405-80-53 04:28:00* Test Item Value Reference Range Interpretation Comments Calcium Level (test code = 72428-3) 9.0 8.4-10.2 [facility] BrenhamTotal Kdrnnetst9085-64-77 04:28:00* Test Item Value Reference Range Interpretation Comments Total Bilirubin (test code = 1975-2) 0.6 0.2-1.2 [facility] BrenhamAspartate Amino Transf (AST/SGOT) 2018-02-16 04:28:00* Test Item Value Reference Range Interpretation Comments Aspartate Amino Transf (AST/SGOT) (test code = Aspartate Amino Transf (AST/SGOT)) 23 5-34 [facility] BrenhamAlanine Aminotransferase (ALT/SGPT) 2018-02-16 04:28:00* Test Item Value Reference Range Interpretation Comments Alanine Aminotransferase (ALT/SGPT) (test code = 1742-6) 13 0-55 [facility] BrenhamTotal Ymjzjxe6330-88-03 04:28:00* Test Item Value Reference Range Interpretation Comments Total Protein (test code = 2885-2) 7.5 6.5-8.1 [facility] BrenhamAlbumin2018-05-28 04:28:00* Test Item Value Reference Range Interpretation Comments Albumin (test code = 1751-7) 3.8 3.5-5.0 [facility] BrenhamGlobulin2018-05-28 04:28:00* Test Item Value Reference Range Interpretation Comments Globulin (test code = 30721-7) 3.7 2.3-3.5 H [facility] BrenhamAlbumin/Globulin Qebux0071-13-83 04:28:00 * Test Item Value Reference Range Interpretation Comments Albumin/Globulin Ratio (test code = 1759-0) 1.0 0.8-2.0 [facility] BrenhamAlkaline Ultorwcqxog4248-41-73 04:28:00* Test Item Value Reference Range Interpretation Comments Alkaline Phosphatase (test code = 6768-6) 90 40-150 [facility] BrenhamCreatine Plszhj5767-68-24 04:28:00* Test Item Value Reference Range Interpretation Comments Creatine Kinase (test code = 2157-6) 67 29-168 [facility] BrenhamCreatine Kinase ZT0077-00-03 04:28:00* Test Item Value Reference Range Interpretation Comments Creatine Kinase MB (test code = 38591-0) 0.70 0-5.0 [facility] BrenhamAmylase Upvli0030-85-39 04:28:00* Test Item Value Reference Range Interpretation Comments Amylase Level (test code = 1798-8) 68 25-125 [facility] BrenhamLipase2018-05-28 04:28:00* Test Item Value Reference Range Interpretation Comments Lipase (test code = 3040-3) 37 8-78 [facility] Hospitalodium Eruoj7892-12-38 04:28:00* Test Item Value Reference Range Interpretation Comments Sodium Level (test code = 2951-2) 137 136-145 [facility] BrenhamPotassium Nhhli1175-31-24 04:28:00* Test Item Value Reference Range Interpretation Comments Potassium Level (test code = 2823-3) 4.7 3.5-5.1 [facility] BrenhamChloride Yvquq2726-45-50 04:28:00* Test Item Value Reference Range Interpretation Comments Chloride Level (test code = 2075-0) 106 98-107 [facility] BrenhamCarbon Dioxide Jnpsq1006-18-33 04:28:00* Test Item Value Reference Range Interpretation Comments Carbon Dioxide Level (test code = 2028-9) 21 22-29 L [facility] BrenhamAnion Fpf5876-17-28 04:28:00* Test Item Value Reference Range Interpretation Comments Anion Gap (test code = 80922-8) 14.7 8-16 [facility] BrenhamBlood Urea Arvvwype5329-94-61 04:28:00* Test Item Value Reference Range Interpretation Comments Blood Urea Nitrogen (test code = 3094-0) 10 7-26 [facility] BrenhamCreatinine2018-05-28 04:28:00* Test Item Value Reference Range Interpretation Comments Creatinine (test code = 2160-0) 0.69 0.57-1.11 [facility]hamBUN/Creatinine Seqpl2360-06-62 04:28:00* Test Item Value Reference Range Interpretation Comments BUN/Creatinine Ratio (test code = 3097-3) 14 6-25 [facility] BrenhamEstimat Glomerular Filtration Rate 2018-02-16 04:28:00* Test Item Value Reference Range Interpretation Comments Estimat Glomerular Filtration Rate (test code = 045905319) > 60 >60 Ranges were taken from the National Kidney Disease Education Program and the [facility] [employer] literature.Reference ranges:60 or greater: Mgqxan75-81 ( for 3 consecutive months): Chronic kidney disease 15 or less: Kidney failureB[facility] BrenhamGlucose Qehgn3089-28-46 04:28:00* Test Item Value Reference Range Interpretation Comments Glucose Level (test code = SQV2763) 94 74-118 [facility] BrenhamCalcium Tokrz8426-27-23 04:28:00* Test Item Value Reference Range Interpretation Comments Calcium Level (test code = 55748-6) 9.0 8.4-10.2 [facility] BrenhamTotal Xywsanmhx1300-97-11 04:28:00* Test Item Value Reference Range Interpretation Comments Total Bilirubin (test code = 1975-2) 0.6 0.2-1.2 [facility] BrenhamAspartate Amino Transf (AST/SGOT) 2018-02-16 04:28:00* Test Item Value Reference Range Interpretation Comments Aspartate Amino Transf (AST/SGOT) (test code = Aspartate Amino Transf (AST/SGOT)) 23 5-34 [facility] BrenhamAlanine Aminotransferase (ALT/SGPT) 2018-02-16 04:28:00* Test Item Value Reference Range Interpretation Comments Alanine Aminotransferase (ALT/SGPT) (test code = 1742-6) 13 0-55 [facility] BrenhamTotal Fbbevna4799-28-04 04:28:00* Test Item Value Reference Range Interpretation Comments Total Protein (test code = 2885-2) 7.5 6.5-8.1 [facility] BrenhamAlbumin2018-05-28 04:28:00* Test Item Value Reference Range Interpretation Comments Albumin (test code = 1751-7) 3.8 3.5-5.0 [facility]hamGlobulin2018-05-28 04:28:00* Test Item Value Reference Range Interpretation Comments Globulin (test code = 85114-8) 3.7 2.3-3.5 H [facility] BrenhamAlbumin/Globulin Yxiln1106-13-26 04:28:00 * Test Item Value Reference Range Interpretation Comments Albumin/Globulin Ratio (test code = 1759-0) 1.0 0.8-2.0 [facility]hamAlkaline Ffostfkndes0994-27-14 04:28:00* Test Item Value Reference Range Interpretation Comments Alkaline Phosphatase (test code = 6768-6) 90 40-150 [facility] BrenhamCreatine Ztonbc5234-21-14 04:28:00* Test Item Value Reference Range Interpretation Comments Creatine Kinase (test code = 2157-6) 67 29-168 [facility] BrenhamCreatine Kinase [id number] 04:28:00* Test Item Value Reference Range Interpretation Comments Creatine Kinase MB (test code = 38452-9) 0.70 0-5.0 [facility] BrenhamAmylase Cukwn7339-50-24 04:28:00* Test Item Value Reference Range Interpretation Comments Amylase Level (test code = 1798-8) 68 25-125 [facility] BrenhamLipase2018-05-28 04:28:00* Test Item Value Reference Range Interpretation Comments Lipase (test code = 3040-3) 37 8-78 [facility]hamWhite Blood Qhfnk5121-56-81 04:08:00* Test Item Value Reference Range Interpretation Comments White Blood Count (test code = 6690-2) 4.07 4.8-10.8 L [facility] BrenhamRed Blood Tuimw5648-35-56 04:08:00* Test Item Value Reference Range Interpretation Comments Red Blood Count (test code = 789-8) 4.11 3.6-5.1 [facility]hamHemoglobin2018-05-28 04:08:00* Test Item Value Reference Range Interpretation Comments Hemoglobin (test code = 56331-5) 10.9 12.0-16.0 L [facility]hamHematocrit2018-05-28 04:08:00* Test Item Value Reference Range Interpretation Comments Hematocrit (test code = 4544-3) 35.2 34.2-44.1 [facility] BrenhamMean Corpuscular Kcmtac9216-93-56 04:08:00* Test Item Value Reference Range Interpretation Comments Mean Corpuscular Volume (test code = 787-2) 85.6 81-99 [facility]hamMean Corpuscular Xffgeqslaz0918-00-85 04:08:00* Test Item Value Reference Range Interpretation Comments Mean Corpuscular Hemoglobin (test code = 785-6) 26.5 28-32 L [facility] BrenhamMean Corpuscular Hemoglobin Concent 2018-02-16 04:08:00* Test Item Value Reference Range Interpretation Comments Mean Corpuscular Hemoglobin Concent (test code = 786-4) 31.0 31-35 [facility] BrenhamRed Cell Distribution Pswus9244-20-39 04:08:00* Test Item Value Reference Range Interpretation Comments Red Cell Distribution Width (test code = 61557-8) 13.4 11.7 -14.4 [facility] BrenhamPlatelet Xbzxj2047-32-08 04:08:00* Test Item Value Reference Range Interpretation Comments Platelet Count (test code = 777-3) 187 140-360 [facility] BrenhamNeutrophils (%) (Auto)2018-02-16 04:08:00 * Test Item Value Reference Range Interpretation Comments Neutrophils (%) (Auto) (test code = 34593-2) 52.1 38.7-80.0 [facility] BrenhamLymphocytes (%) (Auto)2018-02-16 04:08:00 * Test Item Value Reference Range Interpretation Comments Lymphocytes (%) (Auto) (test code = 736-9) 33.9 18.0-39.1 [facility]hamMonocytes (%) (Auto)2018-02-16 04:08:00* Test Item Value Reference Range Interpretation Comments Monocytes (%) (Auto) (test code = 5905-5) 11.3 4.4-11.3 [facility]hamEosinophils (%) (Auto)2018-02-16 04:08:00 * Test Item Value Reference Range Interpretation Comments Eosinophils (%) (Auto) (test code = 713-8) 2.0 0.0-6.0 [facility]hamBasophils (%) (Auto)2018-02-16 04:08:00* Test Item Value Reference Range Interpretation Comments Basophils (%) (Auto) (test code = 706-2) 0.5 0.0-1.0 [facility]hamIM GRANULOCYTES %2018-02-16 04:08:00* Test Item Value Reference Range Interpretation Comments IM GRANULOCYTES % (test code = IM GRANULOCYTES %) 0.2 0.0- 1.0 [facility]hamNeutrophils # (Auto)2018-02-16 04:08:00* Test Item Value Reference Range Interpretation Comments Neutrophils # (Auto) (test code = 751-8) 2.1 2.1-6.9 [facility] BrenhamLymphocytes # (Auto)2018-02-16 04:08:00* Test Item Value Reference Range Interpretation Comments Lymphocytes # (Auto) (test code = 56487-5) 1.4 1.0-3.2 [facility]hamMonocytes # (Auto)2018-02-16 04:08:00* Test Item Value Reference Range Interpretation Comments Monocytes # (Auto) (test code = 742-7) 0.5 0.2-0.8 [facility]hamEosinophils # (Auto)2018-02-16 04:08:00* Test Item Value Reference Range Interpretation Comments Eosinophils # (Auto) (test code = 711-2) 0.1 0.0-0.4 [facility]hamBasophils # (Auto)2018-02-16 04:08:00* Test Item Value Reference Range Interpretation Comments Basophils # (Auto) (test code = 704-7) 0.0 0.0-0.1 [facility] BrenhamAbsolute Immature Granulocyte (auto 2018-02-16 04:08:00* Test Item Value Reference Range Interpretation Comments Absolute Immature Granulocyte (auto (ponce t code = Absolute Immature Granulocyte (auto) 0.01 0-0.1 [facility]hamWhite Blood Rjruo2388-32-19 04:08:00* Test Item Value Reference Range Interpretation Comments White Blood Count (test code = 6690-2) 4.07 4.8-10.8 L [facility] BrenhamRed Blood Cowqu4513-39-71 04:08:00* Test Item Value Reference Range Interpretation Comments Red Blood Count (test code = 789-8) 4.11 3.6-5.1 [facility]hamHemoglobin2018-05-28 04:08:00* Test Item Value Reference Range Interpretation Comments Hemoglobin (test code = 36839-2) 10.9 12.0-16.0 L [facility] BrenhamHematocrit2018-05-28 04:08:00* Test Item Value Reference Range Interpretation Comments Hematocrit (test code = 4544-3) 35.2 34.2-44.1 [facility]hamMean Corpuscular Ogebcr8477-07-98 04:08:00* Test Item Value Reference Range Interpretation Comments Mean Corpuscular Volume (test code = 787-2) 85.6 81-99 [facility]hamMean Corpuscular Dcjbtcxpix1168-64-31 04:08:00* Test Item Value Reference Range Interpretation Comments Mean Corpuscular Hemoglobin (test code = 785-6) 26.5 28-32 L [facility] BrenhamMean Corpuscular Hemoglobin Concent 2018-02-16 04:08:00* Test Item Value Reference Range Interpretation Comments Mean Corpuscular Hemoglobin Concent (test code = 786-4) 31.0 31-35 [facility] BrenhamRed Cell Distribution Nfaca4835-10-82 04:08:00* Test Item Value Reference Range Interpretation Comments Red Cell Distribution Width (test code = 45584-3) 13.4 11.7 -14.4 [facility] BrenhamPlatelet Bnoqs4292-50-55 04:08:00* Test Item Value Reference Range Interpretation Comments Platelet Count (test code = 777-3) 187 140-360 [facility]hamNeutrophils (%) (Auto)2018-02-16 04:08:00 * Test Item Value Reference Range Interpretation Comments Neutrophils (%) (Auto) (test code = 38253-5) 52.1 38.7-80.0 [facility] BrenhamLymphocytes (%) (Auto)2018-02-16 04:08:00 * Test Item Value Reference Range Interpretation Comments Lymphocytes (%) (Auto) (test code = 736-9) 33.9 18.0-39.1 [facility]hamMonocytes (%) (Auto)2018-02-16 04:08:00* Test Item Value Reference Range Interpretation Comments Monocytes (%) (Auto) (test code = 5905-5) 11.3 4.4-11.3 [facility]hamEosinophils (%) (Auto)2018-02-16 04:08:00 * Test Item Value Reference Range Interpretation Comments Eosinophils (%) (Auto) (test code = 713-8) 2.0 0.0-6.0 [facility]hamBasophils (%) (Auto)2018-02-16 04:08:00* Test Item Value Reference Range Interpretation Comments Basophils (%) (Auto) (test code = 706-2) 0.5 0.0-1.0 [facility] BrenhamIM GRANULOCYTES %2018-02-16 04:08:00* Test Item Value Reference Range Interpretation Comments IM GRANULOCYTES % (test code = IM GRANULOCYTES %) 0.2 0.0- 1.0 [facility]hamNeutrophils # (Auto)2018-02-16 04:08:00* Test Item Value Reference Range Interpretation Comments Neutrophils # (Auto) (test code = 751-8) 2.1 2.1-6.9 [facility] BrenhamLymphocytes # (Auto)2018-02-16 04:08:00* Test Item Value Reference Range Interpretation Comments Lymphocytes # (Auto) (test code = 60859-1) 1.4 1.0-3.2 [facility]hamMonocytes # (Auto)2018-02-16 04:08:00* Test Item Value Reference Range Interpretation Comments Monocytes # (Auto) (test code = 742-7) 0.5 0.2-0.8 [facility]hamEosinophils # (Auto)2018-02-16 04:08:00* Test Item Value Reference Range Interpretation Comments Eosinophils # (Auto) (test code = 711-2) 0.1 0.0-0.4 [facility]hamBasophils # (Auto)2018-02-16 04:08:00* Test Item Value Reference Range Interpretation Comments Basophils # (Auto) (test code = 704-7) 0.0 0.0-0.1 [facility] BrenhamAbsolute Immature Granulocyte (auto 2018-02-16 04:08:00* Test Item Value Reference Range Interpretation Comments Absolute Immature Granulocyte (auto (ponce t code = Absolute Immature Granulocyte (auto) 0.01 0-0.1 [facility]hamWhite Blood Gvmdh0416-05-56 04:08:00* Test Item Value Reference Range Interpretation Comments White Blood Count (test code = 6690-2) 4.07 4.8-10.8 L [facility] BrenhamRed Blood Easkc8245-34-38 04:08:00* Test Item Value Reference Range Interpretation Comments Red Blood Count (test code = 789-8) 4.11 3.6-5.1 [facility]hamHemoglobin2018-05-28 04:08:00* Test Item Value Reference Range Interpretation Comments Hemoglobin (test code = 18898-1) 10.9 12.0-16.0 L [facility] BrenhamHematocrit2018-05-28 04:08:00* Test Item Value Reference Range Interpretation Comments Hematocrit (test code = 4544-3) 35.2 34.2-44.1 [facility] BrenhamMean Corpuscular Uxyvav4895-02-25 04:08:00* Test Item Value Reference Range Interpretation Comments Mean Corpuscular Volume (test code = 787-2) 85.6 81-99 [facility] BrenhamMean Corpuscular Ampnybxsra0827-37-76 04:08:00* Test Item Value Reference Range Interpretation Comments Mean Corpuscular Hemoglobin (test code = 785-6) 26.5 28-32 L [facility] BrenhamMean Corpuscular Hemoglobin Concent 2018-02-16 04:08:00* Test Item Value Reference Range Interpretation Comments Mean Corpuscular Hemoglobin Concent (test code = 786-4) 31.0 31-35 [facility] BrenhamRed Cell Distribution Qtspu6658-35-97 04:08:00* Test Item Value Reference Range Interpretation Comments Red Cell Distribution Width (test code = 21324-9) 13.4 11.7 -14.4 [facility] BrenhamPlatelet Plkyx7990-01-91 04:08:00* Test Item Value Reference Range Interpretation Comments Platelet Count (test code = 777-3) 187 140-360 [facility] BrenhamNeutrophils (%) (Auto)2018-02-16 04:08:00 * Test Item Value Reference Range Interpretation Comments Neutrophils (%) (Auto) (test code = 02560-1) 52.1 38.7-80.0 [facility] BrenhamLymphocytes (%) (Auto)2018-02-16 04:08:00 * Test Item Value Reference Range Interpretation Comments Lymphocytes (%) (Auto) (test code = 736-9) 33.9 18.0-39.1 [facility]hamMonocytes (%) (Auto)2018-02-16 04:08:00* Test Item Value Reference Range Interpretation Comments Monocytes (%) (Auto) (test code = 5905-5) 11.3 4.4-11.3 [facility]hamEosinophils (%) (Auto)2018-02-16 04:08:00 * Test Item Value Reference Range Interpretation Comments Eosinophils (%) (Auto) (test code = 713-8) 2.0 0.0-6.0 [facility]hamBasophils (%) (Auto)2018-02-16 04:08:00* Test Item Value Reference Range Interpretation Comments Basophils (%) (Auto) (test code = 706-2) 0.5 0.0-1.0 [facility] BrenhamIM GRANULOCYTES %2018-02-16 04:08:00* Test Item Value Reference Range Interpretation Comments IM GRANULOCYTES % (test code = IM GRANULOCYTES %) 0.2 0.0- 1.0 [facility]hamNeutrophils # (Auto)2018-02-16 04:08:00* Test Item Value Reference Range Interpretation Comments Neutrophils # (Auto) (test code = 751-8) 2.1 2.1-6.9 [facility] BrenhamLymphocytes # (Auto)2018-02-16 04:08:00* Test Item Value Reference Range Interpretation Comments Lymphocytes # (Auto) (test code = 14552-7) 1.4 1.0-3.2 [facility]hamMonocytes # (Auto)2018-02-16 04:08:00* Test Item Value Reference Range Interpretation Comments Monocytes # (Auto) (test code = 742-7) 0.5 0.2-0.8 [facility]hamEosinophils # (Auto)2018-02-16 04:08:00* Test Item Value Reference Range Interpretation Comments Eosinophils # (Auto) (test code = 711-2) 0.1 0.0-0.4 [facility]hamBasophils # (Auto)2018-02-16 04:08:00* Test Item Value Reference Range Interpretation Comments Basophils # (Auto) (test code = 704-7) 0.0 0.0-0.1 [facility] BrenhamAbsolute Immature Granulocyte (auto 2018-02-16 04:08:00* Test Item Value Reference Range Interpretation Comments Absolute Immature Granulocyte (auto (ponce t code = Absolute Immature Granulocyte (auto) 0.01 0-0.1 [facility] BrenhamUrine BWM1792-64-01 04:07:00* Test Item Value Reference Range Interpretation Comments Urine WBC (test code = 5821-4) 11-20 0-5 H [facility] BrenhamUrine [id number] 04:07:00* Test Item Value Reference Range Interpretation Comments Urine RBC (test code = 53697-5) 6-10 0-5 H [facility] BrenhamUrine Orgqaayh6214-26-28 04:07:00* Test Item Value Reference Range Interpretation Comments Urine Bacteria (test code = 78368-5) RARE NONE [facility] BrenhamUrine Epithelial Cbmju0590-74-02 04:07:00 * Test Item Value Reference Range Interpretation Comments Urine Epithelial Cells (test code = 48802-1) FEW NONE [facility] BrenhamUrine Transitional Epithelial Cells 2018-02-16 04:07:00* Test Item Value Reference Range Interpretation Comments Urine Transitional Epithelial Cells (test code = 8249-5) FEW NONE H [facility] BrenhamUrine [id number] 04:07:00* Test Item Value Reference Range Interpretation Comments Urine WBC (test code = 5821-4) 11-20 0-5 H [facility] [id number] 04:07:00* Test Item Value Reference Range Interpretation Comments Urine RBC (test code = 21999-7) 6-10 0-5 H [facility] Rnbpzmac4932-22-08 04:07:00* Test Item Value Reference Range Interpretation Comments Urine Bacteria (test code = 38787-8) [facility]helial Jwsia9374-85-81 04:07:00 * Test Item Value Reference Range Interpretation Comments Urine Epithelial Cells (test code = 50199-9) FEW NONE [facility]hamUrine Transitional Epithelial Cells 2018-02-16 04:07:00* Test Item Value Reference Range Interpretation Comments Urine Transitional Epithelial Cells (test code = 8249-5) FEW NONE H [facility]hamUrine SGI5150-41-81 04:07:00* Test Item Value Reference Range Interpretation Comments Urine WBC (test code = 5821-4) 11-20 0-5 H [facility]hamUrine ZDU4037-45-30 04:07:00* Test Item Value Reference Range Interpretation Comments Urine RBC (test code = 54561-6) 6-10 0-5 H [facility]hamUrine Cbtnwcuf1264-30-06 04:07:00* Test Item Value Reference Range Interpretation Comments Urine Bacteria (test code = 63375-7) [facility]ARE [facility] Epithelial Twzdn2604-78-13 04:07:00 * Test Item Value Reference Range Interpretation Comments Urine Epithelial Cells (test code = 06195-0) FEW NONE [facility] Transitional Epithelial Cells 2018-02-16 04:07:00* Test Item Value Reference Range Interpretation Comments Urine Transitional Epithelial Cells (test code = 8249-5) FEW NONE [facility]hamUrine Xdebi5213-56-47 04:00:00* Test Item Value Reference Range Interpretation Comments Urine Color (test code = 5778-6) YELLOW YELLOW [facility]hamUrine Sgiszvd1796-12-88 04:00:00* Test Item Value Reference Range Interpretation Comments Urine Clarity (test code = 37246-1) CLEAR CLEAR [facility] Specific Zokdggr3337-36-23 04:00:00 * Test Item Value Reference Range Interpretation Comments Urine Specific [place] (test code = 5811-5) 1.015 1.010-1.02 5 [facility]hamUrine jC6884-27-67 04:00:00* Test Item Value Reference Range Interpretation Comments Urine pH (test code = 67129-9) 8 5-7 H [facility] Leukocyte Vscxfnpe2271-76-13 04:00:00* Test Item Value Reference Range Interpretation Comments Urine Leukocyte Esterase (test code = 5799-2) TRACE NEGATIVE H [facility] Xrocqri3812-31-24 04:00:00* Test Item Value Reference Range Interpretation Comments Urine Nitrite (test code = 33830-8) NEGATIVE NEGATIVE [facility]hamUrine Hinfbom5779-33-73 04:00:00* Test Item Value Reference Range Interpretation Comments Urine Protein (test code = 5804-0) NEGATIVE NEGATIVE [facility] Glucose (UA)2018-02-16 04:00:00* Test Item Value Reference Range Interpretation Comments Urine Glucose (UA) (test code = 2349-9) NEGATIVE NEGATIVE [facility]hamUrine Ymiidme5108-42-49 04:00:00* Test Item Value Reference Range Interpretation Comments Urine Ketones (test code = 98831-0) NEGATIVE NEGATIVE [facility] Ocesquxgpfet3758-57-00 04:00:00* Test Item Value Reference Range Interpretation Comments Urine Urobilinogen (test code = 29919-1) 1 0.2-1 [facility]hamUrine Tnlqymyrq6444-79-06 04:00:00* Test Item Value Reference Range Interpretation Comments Urine Bilirubin (test code = 1978-6) NEGATIVE NEGATIVE [facility] Legpo3202-75-52 04:00:00* Test Item Value Reference Range Interpretation Comments Urine Blood (test code = 25191-1) TRACE NEGATIVE H [facility]hamUrine Hggfj7793-49-81 04:00:00* Test Item Value Reference Range Interpretation Comments Urine Color (test code = 5778-6) YELLOW YELLOW [facility]hamUrine Qdjecmy5477-30-62 04:00:00* Test Item Value Reference Range Interpretation Comments Urine Clarity (test code = 65779-0) CLEAR CLEAR [facility] Specific Robxdig5956-62-02 04:00:00 * Test Item Value Reference Range Interpretation Comments Urine Specific [place] (test code = 5811-5) 1.015 1.010-1.02 5 [facility]hamUrine dC0816-53-50 04:00:00* Test Item Value Reference Range Interpretation Comments Urine pH (test code = 79174-7) 8 5-7 H [facility]hamU[facility] Leukocyte Hvkrixuf0029-76-62 04:00:00* Test Item Value Reference Range Interpretation Comments Urine Leukocyte Esterase (test code = 5799-2) TRACE NEGATIVE H [facility]hamUrine Pdznryb2491-50-09 04:00:00* Test Item Value Reference Range Interpretation Comments Urine Nitrite (test code = 60366-5) NEGATIVE NEGATIVE [facility]hamU[facility] Uonhtbn8250-53-61 04:00:00* Test Item Value Reference Range Interpretation Comments Urine Protein (test code = 5804-0) NEGATIVE NEGATIVE [facility]hamUrine Glucose (UA)2018-02-16 04:00:00* Test Item Value Reference Range Interpretation Comments Urine Glucose (UA) (test code = 2349-9) NEGATIVE NEGATIVE [facility]hamU[facility] Nrtnrbn3433-61-13 04:00:00* Test Item Value Reference Range Interpretation Comments Urine Ketones (test code = 22592-4) NEGATIVE NEGATIVE [facility]hamU[facility] Pjmulqtcekjk1699-12-07 04:00:00* Test Item Value Reference Range Interpretation Comments Urine Urobilinogen (test code = 33989-7) 1 0.2-1 [facility]hamU[facility] Xqkbkdgqk0649-59-43 04:00:00* Test Item Value Reference Range Interpretation Comments Urine Bilirubin (test code = 1978-6) NEGATIVE NEGATIVE [facility]hamU[facility] Qpxsa8619-18-98 04:00:00* Test Item Value Reference Range Interpretation Comments Urine Blood (test code = 74464-9) TRACE NEGATIVE H [facility]hamUrine Wfybe6936-65-94 04:00:00* Test Item Value Reference Range Interpretation Comments Urine Color (test code = 5778-6) YELLOW YELLOW [facility]hamUrine Xbzspfd8992-54-16 04:00:00* Test Item Value Reference Range Interpretation Comments Urine Clarity (test code = 95029-4) CLEAR CLEAR [facility] Specific Lisouqa2117-76-36 04:00:00 * Test Item Value Reference Range Interpretation Comments Urine Specific [place] (test code = 5811-5) 1.015 1.010-1.02 5 [facility]hamU[facility] tV5490-30-48 04:00:00* Test Item Value Reference Range Interpretation Comments Urine pH (test code = 63226-9) 8 5-7 H [facility]hamU[facility] Leukocyte Skeqnvss1876-57-91 04:00:00* Test Item Value Reference Range Interpretation Comments Urine Leukocyte Esterase (test code = 5799-2) TRACE NEGATIVE H [facility]hamUrine Mhyaoom1726-02-40 04:00:00* Test Item Value Reference Range Interpretation Comments Urine Nitrite (test code = 68802-0) NEGATIVE NEGATIVE [facility]ham[facility] Eaofjsi7359-66-79 04:00:00* Test Item Value Reference Range Interpretation Comments Urine Protein (test code = 5804-0) NEGATIVE NEGATIVE [facility]hamUrine Glucose (UA)2018-02-16 04:00:00* Test Item Value Reference Range Interpretation Comments Urine Glucose (UA) (test code = 2349-9) NEGATIVE NEGATIVE [facility]ham[facility] Jaxoauq3142-68-55 04:00:00* Test Item Value Reference Range Interpretation Comments Urine Ketones (test code = 41695-9) NEGATIVE NEGATIVE [facility]ham[facility] Sxfbkccetsxz7211-98-45 04:00:00* Test Item Value Reference Range Interpretation Comments Urine Urobilinogen (test code = 88264-3) 1 0.2-1 [facility]hamU[facility] Jdjdfxgqw0443-57-98 04:00:00* Test Item Value Reference Range Interpretation Comments Urine Bilirubin (test code = 1978-6) NEGATIVE NEGATIVE [facility]ham[facility] Riguq6624-34-93 04:00:00* Test Item Value Reference Range Interpretation Comments Urine Blood (test code = 04215-7) TRACE NEGATIVE H [facility]hamCreatine Kinase PQ9828-41-94 16:21:00* Test Item Value Reference Range Interpretation Comments Creatine Kinase MB (test code = 77033-4) 0.60 0-5.0 [facility]hamTroponin C9965-14-21 16:21:00* Test Item Value Reference Range Interpretation Comments Troponin I (test code = MBU7558) -0.001 0-0.300 [facility]hamCreatine Mlaywu7941-37-21 16:15:00* Test Item Value Reference Range Interpretation Comments Creatine Kinase (test code = 2157-6) 52 29-168 [facility]hamProthrombin Zeuw4231-83-16 16:13:00* Test Item Value Reference Range Interpretation Comments Prothrombin Time (test code = 5902-2) 12.5 11.9-14.5 [facility]hamProthromb Time International Ratio 2017-12-18 16:13:00* Test Item Value Reference Range Interpretation Comments Prothromb Time International Ratio (test code = 6301-6) 1.01 Oral Anticoagulant Therapy INR Values:1. Low Intensity Therapy 1.5 - 2.02 . Moderate Intensity Therapy 2.0 - 3.03. High Intensity Therapy(1) 2.5 - 3. 54. High Intensity Therapy(2) 3.0 - 4.05. Panic Value INR > 5.0 [facility]hamActivated Partial Thromboplast Time 2017-12-18 16:13:00* Test Item Value Reference Range Interpretation Comments Activated Partial Thromboplast Time (test code = 65491-2) 28.3 23.8-35.5 [facility]hamProthrombin Zxxp8646-42-55 16:13:00* Test Item Value Reference Range Interpretation Comments Prothrombin Time (test code = 5902-2) 12.5 11.9-14.5 [facility]hamProthromb Time International Ratio 2017-12-18 16:13:00* Test Item Value Reference Range Interpretation Comments Prothromb Time International Ratio (test code = 6301-6) 1.01 Oral Anticoagulant Therapy INR Values:1. Low Intensity Therapy 1.5 - 2.02 . Moderate Intensity Therapy 2.0 - 3.03. High Intensity Therapy(1) 2.5 - 3. 54. High Intensity Therapy(2) 3.0 - 4.05. Panic Value INR > 5.0 [facility]hamActivated Partial Thromboplast Time 2017-12-18 16:13:00* Test Item Value Reference Range Interpretation Comments Activated Partial Thromboplast Time (test code = 53941-9) 28.3 23.8-35.5 [facility]hamUrine KDU1955-40-02 14:19:00* Test Item Value Reference Range Interpretation Comments Urine WBC (test code = 5821-4) 6-10 0-5 H [facility]hamUrine YDV6119-43-24 14:19:00* Test Item Value Reference Range Interpretation Comments Urine RBC (test code = 25382-0) 0-5 0-5 [facility]hamU[facility] Nlfjyqme1455-87-53 14:19:00* Test Item Value Reference Range Interpretation Comments Urine Bacteria (test code = 73903-2) FEW NONE [facility]hamUrine Epithelial Fqcah3313-28-81 14:19:00 * Test Item Value Reference Range Interpretation Comments Urine Epithelial Cells (test code = 06059-0) FEW NONE [facility]hamUrine Jlpfp2193-64-90 14:01:00* Test Item Value Reference Range Interpretation Comments Urine Color (test code = 5778-6) YELLOW YELLOW [facility]hamU[facility] Ehjgkce2476-11-13 14:01:00* Test Item Value Reference Range Interpretation Comments Urine Clarity (test code = 11456-5) CLEAR CLEAR [facility]hamUrine Specific Vrcurth0289-51-69 14:01:00 * Test Item Value Reference Range Interpretation Comments Urine Specific [place] (test code = 5811-5) 1.010 1.010-1.02 5 [facility]hamU[facility] [id number] 14:01:00* Test Item Value Reference Range Interpretation Comments Urine pH (test code = 41193-3) 7 5-7 [facility]hamU[facility] Leukocyte Oekjlcyh4728-66-85 14:01:00* Test Item Value Reference Range Interpretation Comments Urine Leukocyte Esterase (test code = 5799-2) 1+ NEGATIVE H [facility] Yqtakeq9292-32-51 14:01:00* Test Item Value Reference Range Interpretation Comments Urine Nitrite (test code = 04206-5) NEGATIVE NEGATIVE [facility] Zlzfuqn6705-58-26 14:01:00* Test Item Value Reference Range Interpretation Comments Urine Protein (test code = 5804-0) NEGATIVE NEGATIVE [facility] Glucose (UA)2017-12-18 14:01:00* Test Item Value Reference Range Interpretation Comments Urine Glucose (UA) (test code = 2349-9) NEGATIVE NEGATIVE [facility]hamU[facility] Nmvtang6771-64-63 14:01:00* Test Item Value Reference Range Interpretation Comments Urine Ketones (test code = 21402-1) NEGATIVE NEGATIVE [facility]hamUrine Hpmwosjyksjm5514-69-93 14:01:00* Test Item Value Reference Range Interpretation Comments Urine Urobilinogen (test code = 29582-9) 0.2 0.2-1 [facility]hamUrine Kdeoakxpn9510-18-13 14:01:00* Test Item Value Reference Range Interpretation Comments Urine Bilirubin (test code = 1978-6) NEGATIVE NEGATIVE [facility] Lghnv8477-06-01 14:01:00* Test Item Value Reference Range Interpretation Comments Urine Blood (test code = 64130-3) 1+ NEGATIVE H [facility] BrenhamMagnesium Wzsay5428-09-85 14:01:00* Test Item Value Reference Range Interpretation Comments Magnesium Level (test code = 15471-6) 1.8 1.3-2.1 [facility] BrenhamAmylase Oiczf9709-96-08 14:01:00* Test Item Value Reference Range Interpretation Comments Amylase Level (test code = 1798-8) 62 25-125 [facility] BrenhamLipase2018-03-29 14:01:00* Test Item Value Reference Range Interpretation Comments Lipase (test code = 3040-3) 37 8-78 [facility] BrenhamMagnesium Aecrf3782-77-31 14:01:00* Test Item Value Reference Range Interpretation Comments Magnesium Level (test code = 99279-4) 1.8 1.3-2.1 [facility]odium Jnkqp9693-22-09 13:55:00* Test Item Value Reference Range Interpretation Comments Sodium Level (test code = 2951-2) 138 136-145 [facility]hamPotassium Zirfr0172-70-99 13:55:00* Test Item Value Reference Range Interpretation Comments Potassium Level (test code = 2823-3) 4.2 3.5-5.1 [facility]hamChloride Znvqe7925-09-73 13:55:00* Test Item Value Reference Range Interpretation Comments Chloride Level (test code = 2075-0) 105 98-107 [facility] BrenhamCarbon Dioxide Dclio3780-82-91 13:55:00* Test Item Value Reference Range Interpretation Comments Carbon Dioxide Level (test code = 2028-9) 25 22-29 [facility] BrenhamAnion Kud8839-82-49 13:55:00* Test Item Value Reference Range Interpretation Comments Anion Gap (test code = 58018-5) 12.2 8-16 [facility]hamBlood Urea Mqeibhth5508-08-19 13:55:00* Test Item Value Reference Range Interpretation Comments Blood Urea Nitrogen (test code = 3094-0) 9 7-26 [facility]hamCreatinine2018-03-29 13:55:00* Test Item Value Reference Range Interpretation Comments Creatinine (test code = 2160-0) 0.68 0.57-1.11 [facility]hamBUN/Creatinine Ahntg4114-09-53 13:55:00* Test Item Value Reference Range Interpretation Comments BUN/Creatinine Ratio (test code = 3097-3) 13 6-25 [facility] BrenhamEstimat Glomerular Filtration Rate 2017-12-18 13:55:00* Test Item Value Reference Range Interpretation Comments Estimat Glomerular Filtration Rate (test code = 08915-6) 60- >60 Ranges were taken from the National Kidney Disease Education Program and the [facility] Kidney Foundation literature.Reference ranges:60 or greater: Icefui88-89 ( for 3 consecutive months): Chronic kidney disease 15 or less: Kidney failureBaylor Scott & [facility] – BrenhamGlucose Coimb4556-58-24 13:55:00* Test Item Value Reference Range Interpretation Comments Glucose Level (test code = LHC2535) 112 74-118 [facility] BrenhamCalcium Ihkbg9038-57-22 13:55:00* Test Item Value Reference Range Interpretation Comments Calcium Level (test code = 41058-0) 9.1 8.4-10.2 [facility]hamTotal Yqbejelcc1425-49-12 13:55:00* Test Item Value Reference Range Interpretation Comments Total Bilirubin (test code = 1975-2) 0.5 0.2-1.2 [facility] BrenhamAspartate Amino Transf (AST/SGOT) 2017-12-18 13:55:00* Test Item Value Reference Range Interpretation Comments Aspartate Amino Transf (AST/SGOT) (test code = Aspartate Amino Transf (AST/SGOT)) 15 5-34 [facility] BrenhamAlanine Aminotransferase (ALT/SGPT) 2017-12-18 13:55:00* Test Item Value Reference Range Interpretation Comments Alanine Aminotransferase (ALT/SGPT) (test code = 1742-6) 6 0-55 [facility] BrenhamTotal Rzxfios5665-48-82 13:55:00* Test Item Value Reference Range Interpretation Comments Total Protein (test code = 2885-2) 6.9 6.5-8.1 [facility] BrenhamAlbumin2018-03-29 13:55:00* Test Item Value Reference Range Interpretation Comments Albumin (test code = 1751-7) 3.4 3.5-5.0 L [facility] BrenhamGlobulin2018-03-29 13:55:00* Test Item Value Reference Range Interpretation Comments Globulin (test code = 16707-9) 3.5 2.3-3.5 [facility] BrenhamAlbumin/Globulin Imjov5384-21-10 13:55:00 * Test Item Value Reference Range Interpretation Comments Albumin/Globulin Ratio (test code = 1759-0) 1.0 0.8-2.0 [facility] BrenhamAlkaline Ipzsfeioocw9767-69-61 13:55:00* Test Item Value Reference Range Interpretation Comments Alkaline Phosphatase (test code = 6768-6) 78 40-150 [facility] BrenhamWhite Blood Pkglo5736-88-49 13:32:00* Test Item Value Reference Range Interpretation Comments White Blood Count (test code = 6690-2) 6.10 4.8-10.8 [facility] BrenhamRed Blood Eaomg8027-81-70 13:32:00* Test Item Value Reference Range Interpretation Comments Red Blood Count (test code = 789-8) 3.87 3.6-5.1 [facility]hamHemoglobin2018-03-29 13:32:00* Test Item Value Reference Range Interpretation Comments Hemoglobin (test code = 50517-0) 10.6 12.0-16.0 L [facility] BrenhamHematocrit2018-03-29 13:32:00* Test Item Value Reference Range Interpretation Comments Hematocrit (test code = 4544-3) 32.4 34.2-44.1 L [facility] BrenhamMean Corpuscular Mlnxcm6802-94-06 13:32:00* Test Item Value Reference Range Interpretation Comments Mean Corpuscular Volume (test code = 787-2) 83.7 81-99 [facility] BrenhamMean Corpuscular Yfflbjeixa4501-12-96 13:32:00* Test Item Value Reference Range Interpretation Comments Mean Corpuscular Hemoglobin (test code = 785-6) 27.4 28-32 L [facility] BrenhamMean Corpuscular Hemoglobin Concent 2017-12-18 13:32:00* Test Item Value Reference Range Interpretation Comments Mean Corpuscular Hemoglobin Concent (test code = 786-4) 32.7 31-35 [facility] BrenhamRed Cell Distribution Jbjnq8674-56-26 13:32:00* Test Item Value Reference Range Interpretation Comments Red Cell Distribution Width (test code = 68470-0) 14.4 11.7 -14.4 [facility] BrenhamPlatelet Ydtbg3937-17-68 13:32:00* Test Item Value Reference Range Interpretation Comments Platelet Count (test code = 777-3) 202 140-360 [facility] BrenhamNeutrophils (%) (Auto)2017-12-18 13:32:00 * Test Item Value Reference Range Interpretation Comments Neutrophils (%) (Auto) (test code = 48860-3) 73.9 38.7-80.0 [facility] BrenhamLymphocytes (%) (Auto)2017-12-18 13:32:00 * Test Item Value Reference Range Interpretation Comments Lymphocytes (%) (Auto) (test code = 736-9) 16.6 18.0-39.1 L [facility] BrenhamMonocytes (%) (Auto)2017-12-18 13:32:00* Test Item Value Reference Range Interpretation Comments Monocytes (%) (Auto) (test code = 5905-5) 6.9 4.4-11.3 [facility]hamEosinophils (%) (Auto)2017-12-18 13:32:00 * Test Item Value Reference Range Interpretation Comments Eosinophils (%) (Auto) (test code = 713-8) 2.0 0.0-6.0 [facility]hamBasophils (%) (Auto)2017-12-18 13:32:00* Test Item Value Reference Range Interpretation Comments Basophils (%) (Auto) (test code = 706-2) 0.3 0.0-1.0 [facility] BrenhamIM GRANULOCYTES %2017-12-18 13:32:00* Test Item Value Reference Range Interpretation Comments IM GRANULOCYTES % (test code = IM GRANULOCYTES %) 0.3 0.0- 1.0 [facility]hamNeutrophils # (Auto)2017-12-18 13:32:00* Test Item Value Reference Range Interpretation Comments Neutrophils # (Auto) (test code = 751-8) 4.5 2.1-6.9 [facility] BrenhamLymphocytes # (Auto)2017-12-18 13:32:00* Test Item Value Reference Range Interpretation Comments Lymphocytes # (Auto) (test code = 57817-1) 1.0 1.0-3.2 [facility]hamMonocytes # (Auto)2017-12-18 13:32:00* Test Item Value Reference Range Interpretation Comments Monocytes # (Auto) (test code = 742-7) 0.4 0.2-0.8 [facility]hamEosinophils # (Auto)2017-12-18 13:32:00* Test Item Value Reference Range Interpretation Comments Eosinophils # (Auto) (test code = 711-2) 0.1 0.0-0.4 [facility]hamBasophils # (Auto)2017-12-18 13:32:00* Test Item Value Reference Range Interpretation Comments Basophils # (Auto) (test code = 704-7) 0.0 0.0-0.1 [facility] BrenhamAbsolute Immature Granulocyte (auto 2017-12-18 13:32:00* Test Item Value Reference Range Interpretation Comments Absolute Immature Granulocyte (auto (ponce t code = Absolute Immature Granulocyte (auto) 0.02 0-0.1 [facility] Flzujyl9789-87-12 11:47:00* Test Item Value Reference Range Interpretation Comments Bedside Glucose (test code = 64540-9) 105 70-120 Meter ID: [id number] [facility] Glucose 2017-11-11 11:47:00* Test Item Value Reference Range Interpretation Comments Bedside Glucose (test code = 83350-6) 105 70-120 Meter ID: [id number] [facility]Bed[facility] 2017-11-11 11:47:00* Test Item Value Reference Range Interpretation Comments Bedside Glucose (test code = 39813-5) 105 70-120 Meter ID: [id number] [facility] HospitalClostridium Difficile Toxin A & [id number] 20:22:00* Test Item Value Reference Range Interpretation Comments Clostridium Difficile Toxin A & B (test code = 771453260) NEGATIVE NEGATIVE Testing on stool aspirate specimens is outside lead cook claims since specime n type not validated on this assay.[facility] Clostridium Difficile Toxin A & [id number] 20:22:00* Test Item Value Reference Range Interpretation Comments Clostridium Difficile Toxin A & B (test code = 189874740) NEGATIVE NEGATIVE Testing on stool aspirate specimens is outside lead cook claims since specime n type not validated on this assay.[facility] Clostridium Difficile Toxin A & [id number] 20:22:00* Test Item Value Reference Range Interpretation Comments Clostridium Difficile Toxin A & B (test code = 969620659) NEGATIVE NEGATIVE Testing on stool aspirate specimens is outside lead cook claims since specime n type not validated on this assay.[facility] Erythrocyte Sedimentation Omna9466-20-80 09:29:00* Test Item Value Reference Range Interpretation Comments Erythrocyte Sedimentation Rate (test code = 4537-7) 8 0- 20 [facility] BrenhamErythrocyte Sedimentation Eqwj6956-57-39 09:29:00* Test Item Value Reference Range Interpretation Comments Erythrocyte Sedimentation Rate (test code = 4537-7) 8 0- 20 [facility] BrenhamErythrocyte Sedimentation Jkiz6658-85-83 09:29:00* Test Item Value Reference Range Interpretation Comments Erythrocyte Sedimentation Rate (test code = 4537-7) 8 0- 20 [facility]hamHemoglobin A1c Xfjiixu8200-24-47 07:35:00 * Test Item Value Reference Range Interpretation Comments Hemoglobin A1c Percent (test code = Hemoglobin A1c Percent) 5.0 4.0-7.0 [facility] BrenhamHemoglobin A1c Aeoxajl3590-19-74 07:35:00 * Test Item Value Reference Range Interpretation Comments Hemoglobin A1c Percent (test code = Hemoglobin A1c Percent) 5.0 4.0-7.0 [facility]hamHemoglobin A1c Ykgbybn9753-58-79 07:35:00 * Test Item Value Reference Range Interpretation Comments Hemoglobin A1c Percent (test code = Hemoglobin A1c Percent) 5.0 4.0-7.0 [facility] Hospitalodium Khsvq5891-72-25 07:00:00* Test Item Value Reference Range Interpretation Comments Sodium Level (test code = 2951-2) 135 136-145 L [facility] BrenhamPotassium Iasdx7132-70-56 07:00:00* Test Item Value Reference Range Interpretation Comments Potassium Level (test code = 2823-3) 4.2 3.5-5.1 [facility] BrenhamChloride Izvkd5729-07-89 07:00:00* Test Item Value Reference Range Interpretation Comments Chloride Level (test code = 2075-0) 106 98-107 [facility] BrenhamCarbon Dioxide Mzsnz0378-54-36 07:00:00* Test Item Value Reference Range Interpretation Comments Carbon Dioxide Level (test code = 2028-9) 22 22-29 [facility] BrenhamAnion Lae4101-77-08 07:00:00* Test Item Value Reference Range Interpretation Comments Anion Gap (test code = 77983-3) 11.2 8-16 [facility] BrenhamBlood Urea Lfptptdg7884-13-28 07:00:00* Test Item Value Reference Range Interpretation Comments Blood Urea Nitrogen (test code = 3094-0) 8 7-26 [facility] BrenhamCreatinine2018-02-19 07:00:00* Test Item Value Reference Range Interpretation Comments Creatinine (test code = 2160-0) 0.71 0.57-1.11 [facility] BrenhamBUN/Creatinine Dyhjj2220-23-69 07:00:00* Test Item Value Reference Range Interpretation Comments BUN/Creatinine Ratio (test code = 3097-3) 11 6-25 [facility] BrenhamEstimat Glomerular Filtration Rate 2017-11-10 07:00:00* Test Item Value Reference Range Interpretation Comments Estimat Glomerular Filtration Rate (test code = 12985-0) 60- >60 Ranges were taken from the National Kidney Disease Education Program and the [facility] Kidney Foundation literature.Reference ranges:60 or greater: Drqrec97-65 ( for 3 consecutive months): Chronic kidney disease 15 or less: Kidney failureB[facility] & [facility] – BrenhamGlucose Flbjk5768-76-34 07:00:00* Test Item Value Reference Range Interpretation Comments Glucose Level (test code = FHG4084) 91 74-118 [facility] BrenhamCalcium Fcfmq3396-74-64 07:00:00* Test Item Value Reference Range Interpretation Comments Calcium Level (test code = 08146-8) 8.4 8.4-10.2 [facility] BrenhamTotal Gncpmhatj6533-38-28 07:00:00* Test Item Value Reference Range Interpretation Comments Total Bilirubin (test code = 1975-2) 0.5 0.2-1.2 [facility] BrenhamAspartate Amino Transf (AST/SGOT) 2017-11-10 07:00:00* Test Item Value Reference Range Interpretation Comments Aspartate Amino Transf (AST/SGOT) (test code = Aspartate Amino Transf (AST/SGOT)) 18 5-34 [facility] BrenhamAlanine Aminotransferase (ALT/SGPT) 2017-11-10 07:00:00* Test Item Value Reference Range Interpretation Comments Alanine Aminotransferase (ALT/SGPT) (test code = 1742-6) 8 0-55 [facility] BrenhamTotal Crhapjr0372-39-22 07:00:00* Test Item Value Reference Range Interpretation Comments Total Protein (test code = 2885-2) 6.6 6.5-8.1 [facility] BrenhamAlbumin2018-02-19 07:00:00* Test Item Value Reference Range Interpretation Comments Albumin (test code = 1751-7) 3.4 3.5-5.0 L [facility] BrenhamGlobulin2018-02-19 07:00:00* Test Item Value Reference Range Interpretation Comments Globulin (test code = 21240-1) 3.2 2.3-3.5 [facility] BrenhamAlbumin/Globulin Tsggf5407-29-99 07:00:00 * Test Item Value Reference Range Interpretation Comments Albumin/Globulin Ratio (test code = 1759-0) 1.1 0.8-2.0 [facility] BrenhamAlkaline Mfhyhzhhzwm3616-18-89 07:00:00* Test Item Value Reference Range Interpretation Comments Alkaline Phosphatase (test code = 6768-6) 68 40-150 [facility] BrenhamWhite Blood Nvojc5044-32-60 06:25:00* Test Item Value Reference Range Interpretation Comments White Blood Count (test code = 6690-2) 3.66 4.8-10.8 L [facility] BrenhamRed Blood Fgxrc8458-92-63 06:25:00* Test Item Value Reference Range Interpretation Comments Red Blood Count (test code = 789-8) 4.06 3.6-5.1 [facility] BrenhamHemoglobin2018-02-19 06:25:00* Test Item Value Reference Range Interpretation Comments Hemoglobin (test code = 25381-1) 10.7 12.0-16.0 L [facility] BrenhamHematocrit2018-02-19 06:25:00* Test Item Value Reference Range Interpretation Comments Hematocrit (test code = 4544-3) 34.9 34.2-44.1 [facility] BrenhamMean Corpuscular Ptuivh1964-36-74 06:25:00* Test Item Value Reference Range Interpretation Comments Mean Corpuscular Volume (test code = 787-2) 86.0 81-99 [facility] BrenhamMean Corpuscular Vweiwyiypc1607-97-60 06:25:00* Test Item Value Reference Range Interpretation Comments Mean Corpuscular Hemoglobin (test code = 785-6) 26.4 28-32 [facility]an Corpuscular Hemoglobin Concent 2017-11-10 06:25:00* Test Item Value Reference Range Interpretation Comments Mean Corpuscular Hemoglobin Concent (test code = 786-4) 30.7 31-35 L [facility] BrenhamRed Cell Distribution Cvspj7578-88-80 06:25:00* Test Item Value Reference Range Interpretation Comments Red Cell Distribution Width (test code = 38132-7) 15.3 11.7 -14.4 H [facility] BrenhamPlatelet Xjruv6477-26-53 06:25:00* Test Item Value Reference Range Interpretation Comments Platelet Count (test code = 777-3) 167 140-360 [facility] BrenhamNeutrophils (%) (Auto)2017-11-10 06:25:00 * Test Item Value Reference Range Interpretation Comments Neutrophils (%) (Auto) (test code = 87981-4) 52.3 38.7-80.0 [facility]ymph[facility] (%) (Auto)2017-11-10 06:25:00 * Test Item Value Reference Range Interpretation Comments Lymphocytes (%) (Auto) (test code = 736-9) 33.3 18.0-39.1 [facility] (%) (Auto)2017-11-10 06:25:00* Test Item Value Reference Range Interpretation Comments Monocytes (%) (Auto) (test code = 5905-5) 11.7 4.4-11.3 H [facility]osinophils (%) (Auto)2017-11-10 06:25:00 * Test Item Value Reference Range Interpretation Comments Eosinophils (%) (Auto) (test code = 713-8) 1.6 0.0-6.0 [facility] (%) (Auto)2017-11-10 06:25:00* Test Item Value Reference Range Interpretation Comments Basophils (%) (Auto) (test code = 706-2) 0.8 0.0-1.0 [facility]hamIM GRANULOCYTES %2017-11-10 06:25:00* Test Item Value Reference Range Interpretation Comments IM GRANULOCYTES % (test code = IM GRANULOCYTES %) 0.3 0.0- 1.0 [facility]Neutrophils # (Auto)2017-11-10 06:25:00* Test Item Value Reference Range Interpretation Comments Neutrophils # (Auto) (test code = 751-8) 1.9 2.1-6.9 L [facility]hamLymphocytes # (Auto)2017-11-10 06:25:00* Test Item Value Reference Range Interpretation Comments Lymphocytes # (Auto) (test code = 70636-6) 1.2 1.0-3.2 [facility]ocytes # (Auto)2017-11-10 06:25:00* Test Item Value Reference Range Interpretation Comments Monocytes # (Auto) (test code = 742-7) 0.4 0.2-0.8 [facility]osinophils # (Auto)2017-11-10 06:25:00* Test Item Value Reference Range Interpretation Comments Eosinophils # (Auto) (test code = 711-2) 0.1 0.0-0.4 [facility]ophils # (Auto)2017-11-10 06:25:00* Test Item Value Reference Range Interpretation Comments Basophils # (Auto) (test code = 704-7) 0.0 0.0-0.1 [facility]hamAbsolute Immature Granulocyte (auto 2017-11-10 06:25:00* Test Item Value Reference Range Interpretation Comments Absolute Immature Granulocyte (auto (ponce t code = Absolute Immature Granulocyte (auto) 0.01 0-0.1 [facility]hamUrine [id number] 21:43:00* Test Item Value Reference Range Interpretation Comments Urine WBC (test code = 5821-4) 0-5 0-5 [facility] [id number] 21:43:00* Test Item Value Reference Range Interpretation Comments Urine RBC (test code = 56662-5) 0-5 0-5 [facility] Npdhkjkx6204-24-49 21:43:00* Test Item Value Reference Range Interpretation Comments Urine Bacteria (test code = 24167-4) MODERATE NONE H [facility]ham[facility] Epithelial [id number] 21:43:00 * Test Item Value Reference Range Interpretation Comments Urine Epithelial Cells (test code = 05538-9) RARE NONE [facility] Mccag0455-08-10 21:36:00* Test Item Value Reference Range Interpretation Comments Urine Color (test code = 5778-6) YELLOW YELLOW [facility] Gbhkstt6495-78-53 21:36:00* Test Item Value Reference Range Interpretation Comments Urine Clarity (test code = 91426-6) CLEAR CLEAR [facility]hamU[facility] Specific [id number] 21:36:00 * Test Item Value Reference Range Interpretation Comments Urine Specific [place] (test code = 5811-5) 1.015 1.010-1.02 5 [facility] [id number] 21:36:00* Test Item Value Reference Range Interpretation Comments Urine pH (test code = 12500-7) 6 5-7 [facility] Leukocyte [id number] 21:36:00* Test Item Value Reference Range Interpretation Comments Urine Leukocyte Esterase (test code = 5799-2) NEGATIVE NEGATIVE [facility] [id number] 21:36:00* Test Item Value Reference Range Interpretation Comments Urine Nitrite (test code = 10508-5) NEGATIVE NEGATIVE [facility] Qxapzae1310-79-89 21:36:00* Test Item Value Reference Range Interpretation Comments Urine Protein (test code = 5804-0) NEGATIVE NEGATIVE [facility] Glucose (UA)2017-11-09 21:36:00* Test Item Value Reference Range Interpretation Comments Urine Glucose (UA) (test code = 2349-9) NEGATIVE NEGATIVE [facility] [id number] 21:36:00* Test Item Value Reference Range Interpretation Comments Urine Ketones (test code = 50209-6) NEGATIVE NEGATIVE [facility] Njoadiyllgin8801-67-90 21:36:00* Test Item Value Reference Range Interpretation Comments Urine Urobilinogen (test code = 59868-3) 0.2 0.2-1 [facility] Kxvwxoxfw0949-53-15 21:36:00* Test Item Value Reference Range Interpretation Comments Urine Bilirubin (test code = 1978-6) NEGATIVE NEGATIVE [facility] Pgkml6950-01-31 21:36:00* Test Item Value Reference Range Interpretation Comments Urine Blood (test code = 92774-0) TRACE NEGATIVE H [facility]hamCreatine [id number] 18:47:00* Test Item Value Reference Range Interpretation Comments Creatine Kinase (test code = 2157-6) 87 29-168 [facility]ham[facility] Kinase [id number] 18:47:00* Test Item Value Reference Range Interpretation Comments Creatine Kinase MB (test code = 29504-3) 1.00 0-5.0 [facility]hamTroponin [id number] 18:47:00* Test Item Value Reference Range Interpretation Comments Troponin I (test code = BNV4003) -0.00 0.0-0.78 L [facility]hamCT [facility]BDOM[facility]PELVIS [place] [address] Patient Name: YASMINE FELIX MR #: [id number] : 1955 Age/Sex: 63/F Req #: [id number] Adm Physician: Ordered by: RAMÍREZ RAYMOND MD Report #: [id number] Location: ER Room/B ed: Procedure: [id number] CT/CT ABDOMEN/PELVIS CHRISTIANO gallardo Date: 02/16/18 Exam Time: 0500 REPORT STATUS: [...] the limits set by the Radiation Protocol Aubrey heck ([facility]). FINDINGS: LOWER THORAX: No consolidations LIVER: No [...] 5:20 AM Dictated By: BAM NASCIMENTO MD 0520 Transcribed By: JENNIFER on 8 0520 COPY TO: RAMÍREZ RAYMOND MD CT ABDOMEN/PELVIS W [place] [address] Patient Name: YASMINE FELIX MR #: [id number] : 1955 Age/Sex: 62/F Req #: [id number] Adm Physician: Ordered by: MIKEY FLORENTINO MD Report #: [id number] Location: ER Room/Bed: Procedure: [id number] CT/CT ABDOMEN/PELVIS W Exam Da te: 11/09/17 [...]
--- OUTSIDE RECORDS SUMMARY | 2020-08-16 03:15 | XMS REPORT | Clinical Summary ---
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 Role Phone Asked, No Pcp PCP [...] infectious orga nism 11/25/2017 Atypical pneumonia 11/25/2017 Surgical History Surgery Date Site/Laterality Comments BOWEL RESECTION GASTRIC BYPASS 09/22/2000 - 09/21/2001 CARPAL TUNNEL RELEASE Medical History Medical History Date Comments Diverticulitis Social History Date Tobacco Use Types Packs/Day Years Used Never Smoker Smokeless Tobacco: Never Used Drinks/Week oz/Week Comments Alcohol Use No Sex Assigned at Date Recorded Not on file Last Filed Vital Signs Not on file Plan of Treatment Health Maintenance Due Date Last Done Comments BREAST CANCER SCREENING 2003 COLONOSCOPY SCREENING 2003 SHINGLES VACCINES (#1) 2003 65+ PNEUMOCOCCAL VACCINE 2018 (1 of 1 - PPSV23) INFLUENZA VACCINE 04/22/2020 Results Not on fileafter 08/16/2019 Insurance Type Payer Benefit Subscriber ID Effective Phone Address Plan / Dates Group HMO [employer] CIGNA [id number] 2017-P [employer] resent NG O MCR ADV Advance Directives For more information, please contact: [phone] Patient Senior Salesforce Developer Explanation Type Date Recorded Advance Directives, Living Will and Medical Power of Personalized Living Manager Nurse Date Inactivated Comments Code Status Date Activated 11/25/2017 1:55 PM Full Code 11/25/2017 7:39 AM Code Status decision reached by: Patient
--- NOTE | 2020-08-16 03:20 | Emergency Department Note ---
History of Present Illnes History of Present Illness Chief Complaint: Abdominal Complaints History of Present Illness This is a 65 year old female PRESENTS TO ED VIA POV C/O UMBILICAL/LLQ PAIN RADIATING TO FLANK AND BACK SINCE 0900 ON 08/15. PT REPORTS NAUSEA AND 10 EPISODE OF VOMITING ON 08/15/20. PT WITH HX OF OBSTRUCTION. . Historian: Patient Arrival Mode: Car Heel Nail Rasper Required: No Onset (how long ago): day(s) (1) Location: PERIUMBILICAL Quality: PAIN Radiation: Reports back, Reports abdomen (LLQ) Severity: moderate Onset quality: sudden Duration (how long): day(s) (1) Timing of current episode: constant Progression: waxing and waning Chronicity: new Context: Denies recent illness, Denies recent surgery Relieving factors: none Exacerbating factors: none Associated symptoms: Reports nausea/vomiting Treatments prior to arrival: none Past Medical/Family History Physician Review I have reviewed the patient's past medical and family history. Any updates have been documented here. Past Medical History Recent Fever: No Clinical Suspicion of Infectio: No New/Unexplained Change in Ment: No Past Medical History: GERD, Osteoarthritis Other Medical History: Diverliticulitis Bowel obstructions. Aspiration Pneumonia Past Surgical History: Cholecysctectomy, Appendectomy, Hysterectomy, Bariatric Surgery, Colon Resection Other Surgery: Gastric Bypass 11 years ago Bowel Resection x3 Carpal Tunnel Social History Smoking Cessation: Never Smoker Alcohol Use: None Any Illegal Drug Use: No Physically hurt or threatened: No Family History Family history of heart diseas: No Other Last Tetanus: 2010 Review of Systems Review of Systems Constitutional: Reports no symptoms EENTM: Reports no symptoms Cardiovascular: Reports no symptoms Respiratory: Reports no symptoms Gastrointestinal: Reports as per HPI Genitourinary: Reports no symptoms Musculoskeletal: Reports no symptoms Integumentary: Reports no symptoms Neurological: Reports no symptoms Psychological: Reports no symptoms Endocrine: Reports no symptoms Hematological/Lymphatic: Reports no symptoms Physical Exam Related Data Allergies: Coded Allergies: No Known Allergies (Unverified , 02/26/20) Triage Vital Signs Vital Signs Date Time Temp Pulse Resp B/P (MAP) Pulse Ox O2 Delivery O2 Flow Rate FiO2 08/16/20 03:06 99.5 80 20 190/89 99 Room Air Vital signs reviewed: Yes Physical Exam CONSTITUTIONAL Constitutional: Present well-developed, Present well-nourished; Absent distressed HENT HENT: Present normocephalic, Present atraumatic, Present oropharynx clear/moist, Present nose normal HENT L/R: Present left ext ear normal, Present right ext ear normal EYES Eyes: Reports PERRL, Reports conjunctivae normal NECK Neck: Present ROM normal PULMONARY Pulmonary: Present effort normal, Present breath sounds normal CARDIOVASCULAR Cardiovascular: Present regular rhythm, Present heart sounds normal, Present capillary refill normal, Present normal rate GASTROINTESTINAL Abdominal: Present soft, Present bowel sounds normal, Present tender (aileen umbilical, suprapubic) GENITOURINARY Genitourinary: Present exam deferred SKIN Skin: Present warm, Present dry MUSCULOSKELETAL Musculoskeletal: Present ROM normal NEUROLOGICAL Neurological: Present alert, Present oriented x 3, Present no gross motor or sensory deficits PSYCHOLOGICAL Psychological: Present mood/affect normal, Present judgement normal Results Laboratory Laboratory Laboratory Tests Test 08/16/20 03:00 White Blood Count 7.37 x10e3/uL (4.8-10.8) Red Blood Count 4.86 x10e6/uL (3.6-5.1) Hemoglobin 12.6 g/dL (12.0-16.0) Hematocrit 39.9 % (34.2-44.1) Mean Corpuscular Volume 82.1 fL (81-99) Mean Corpuscular Hemoglobin 25.9 pg (28-32) Mean Corpuscular Hemoglobin Concent 31.6 g/dL (31-35) Red Cell Distribution Width 15.0 % (11.7-14.4) Platelet Count 270 x10e3/uL (140-360) Neutrophils (%) (Auto) 86.9 % (38.7-80.0) Lymphocytes (%) (Auto) 8.4 % (18.0-39.1) Monocytes (%) (Auto) 4.3 % (4.4-11.3) Eosinophils (%) (Auto) 0.0 % (0.0-6.0) Basophils (%) (Auto) 0.1 % (0.0-1.0) Neutrophils # (Auto) 6.4 (2.1-6.9) Lymphocytes # (Auto) 0.6 (1.0-3.2) Monocytes # (Auto) 0.3 (0.2-0.8) Eosinophils # (Auto) 0.0 (0.0-0.4) Basophils # (Auto) 0.0 (0.0-0.1) Absolute Immature Granulocyte (auto 0.02 x10e3/uL (0-0.1) Urine Color Yellow (YELLOW) Urine Clarity Cloudy (CLEAR) Urine pH 7.5 (5 - 7) Urine Specific [place] >=1.030 (1.010-1.025) Urine Protein 1+ (NEGATIVE) Urine Glucose (UA) Negative (NEGATIVE) Urine Ketones Negative (NEGATIVE) Urine Blood 3+ (NEGATIVE) Urine Nitrite Negative (NEGATIVE) Urine Bilirubin Negative (NEGATIVE) Urine Urobilinogen 0.2 mg/dL (0.2 - 1) Urine Leukocyte Esterase 1+ (NEGATIVE) Urine RBC 0-5 /HPF (0-5) Urine WBC 21-50 /HPF (0-5) Urine Epithelial Cells Few /LPF (NONE) Urine Renal Epithelial Cells Few (NONE) Urine Bacteria Many /HPF (NONE) Sodium Level 136 mmol/L (136-145) Potassium Level 3.3 mmol/L (3.5-5.1) Chloride Level 100 mmol/L (98-107) Carbon Dioxide Level 23 mmol/L (22-29) Anion Gap 16.3 mmol/L (8-16) Blood Urea Nitrogen 7 mg/dL (7-26) Creatinine 0.66 mg/dL (0.57-1.11) Estimat Glomerular Filtration Rate > 60 ML/MIN (60-) BUN/Creatinine Ratio 11 (6-25) Glucose Level 145 mg/dL (74-118) Calcium Level 8.8 mg/dL (8.4-10.2) Total Bilirubin 0.9 mg/dL (0.2-1.2) Aspartate Amino Transf (AST/SGOT) 29 IU/L (5-34) Alanine Aminotransferase (ALT/SGPT) 13 IU/L (0-55) Alkaline Phosphatase 107 IU/L (40-150) Total Protein 8.0 g/dL (6.5-8.1) Albumin 4.3 g/dL (3.5-5.0) Globulin 3.7 g/dL (2.3-3.5) Albumin/Globulin Ratio 1.2 (0.8-2.0) Amylase Level 82 U/L (25-125) Lipase 35 U/L (8-78) Lab results reviewed: Yes Imaging Imaging results reviewed: Yes Impressions Procedure: [id number] CT/CT ABDOMEN/PELVIS W Exam Date: 08/16/20 Exam Time: 435 REPORT STATUS: Signed EXAM: CT Abdomen and Pelvis WITH contrast INDICATION: ^ABD PAIN. VOMITING ^20200816 ^0436 ^Y COMPARISON: CT dated 02/16/2018 TECHNIQUE: Abdomen and pelvis were scanned utilizing a multidetector helical scanner from the lung base to the pubic symphysis after administration of IV contrast. Coronal and sagittal reformations were obtained. Dose modulation, iterative reconstruction, and/or weight based adjustment of the mA/kV was utilized to reduce the radiation dose to as low as reasonably achievable. Routine protocol was performed. Scan was performed when during portal venous phase. IV CONTRAST: 100 mL of Isovue-370 ORAL CONTRAST: Gastroview COMPLICATIONS: None RADIATION DOSE: Total DLP: 586.33 mGy*cm Estimated effective dose: (DLP x 0.015 x size factor) mSv CTDIvol has been reviewed. It is below the limits set by the Radiation Protocol Committee (RPC). FINDINGS: LINES and TUBES: None. LOWER THORAX: Unremarkable HEPATOBILIARY: No focal hepatic lesions. Mild biliary dilatation, likely due to reservoir effect. GALLBLADDER: Surgically absent. SPLEEN: No splenomegaly. PANCREAS: No focal masses or ductal dilatation. ADRENALS: No adrenal nodules KIDNEYS/URETERS: Kidneys enhance symmetrically. No hydronephrosis. No renal mass. Left renal subcentimeter hypodensities are too small to characterize. No stones. GI TRACT: No abnormal distention or evidence of bowel obstruction. Mild wall thickening at small bowel anastomotic site (series 2, image 46). Appendix is absent. Evidence of gastric bypass surgery. Oral contrast within distal esophagus, suggestive of gastroesophageal reflux. PELVIC ORGANS/BLADDER: Unremarkable. LYMPH NODES: No lymphadenopathy. VESSELS: There is mild atherosclerotic disease in the aorta and major arterial branches. PERITONEUM / RETROPERITONEUM: No free air or fluid. BONES: Degenerative changes of spine. L3 vertebral body hemangioma. SOFT TISSUES: Unremarkable. IMPRESSION: 1. Mild nonspecific focal small bowel wall thickening at the anastomotic site. 2. No evidence of bowel obstruction. Signed by: Dr. Denton Price MD on 08/16/2020 5:31 AM Dictated By: DENTON PRICE MD 0 Transcribed By: JENNIFER on 08/16/20530 COPY TO: RAMÍREZ RAYMOND MD~ Assessment & Plan Medical Decision Making MDM PT WITH ABD PAIN WITH H/O BOWEL OBSTRUCTIONS AND COLON RESECTION ALONG WITH OTHER ABD SURGERIES IN PAST CBC, CMP, AMYLASE, LIPASE, UA, CT ABD/PELVIS ORDERED TO EVAL FOR LEUKOCYTOSIS, UTI, PANCREATITIS, DIVERTICULITIS, BOWEL OBSTRUCTION, BOWEL PERFORATION, COLITIS, KIDNEY STONE MORPHINE 4 MG IV ORDERED ZOFRAN 4 MG IV ORDERED PROTONIX 40 MG IV ORDERED 1 LITER NS IV BOLUS ORDERED ct scan reveals distended bladder, bladder scan showed 760, pt went to bathroom and only put out 250 cc urine, bladder scan repeated shows 500cc, contreras ordered 450 cc output Assessment & Plan Final Impression: (1) UTI (urinary tract infection) (2) Abdominal pain (3) Urinary retention Depart Disposition: HOME, SELF-CARE Last Vital Signs Date Time Temp Pulse Resp B/P (MAP) Pulse Ox O2 Delivery O2 Flow Rate FiO2 08/16/20 03:06 99.5 80 20 190/89 99 Room Air Home Meds Active Scripts Loperamide Hcl* (IMODIUM*) 2 Mg Cap, 2 MG PO Q6H PRN for diarrhea for 14 Days, CAP Prov:GIANFRANCO CUNHA MD 11/11/17 Levofloxacin (LEVAQUIN) 500 Mg Tablet, 500 MG PO DAILY for 7 Days Prov:GIANFRANCO CUNHA MD 11/11/17 Metronidazole (FLAGYL) 500 Mg Tablet, 500 MG PO TID for 7 Days Prov:GIANFRANCO CUNHA MD 11/11/17 Tramadol Hcl* (ULTRAM 50MG*) 50 Mg Tab, 50 MG PO Q8H PRN for PAIN, #20 TAB Prov:GIANFRANCO CUNHA MD 11/11/17 Reported Medications Clonazepam (CLONAZEPAM) 1 Mg Tablet, 1 MG PO TID, TAB 10/07/16 Esomeprazole Magnesium (NEXIUM) 40 Mg Capsule.dr, 40 MG PO DAILY PROTONIX THERAPEUTIC SUBSTITUTE FOR NEXIUM PER [facility] 10/07/16 Metoprolol Succinate (METOPROLOL SUCCINATE) 25 Mg Tab.er.24h, 25 MG PO PRN 08/03/16 Hydrocodone Bit/Acetaminophen (NORCO 10-325 TABLET) 1 Each Tablet, 10 MG Q4HR, #50 06/23/15 Zolpidem Tartrate (AMBIEN) 5 Mg Tablet, 10 MG PO BEDTIME, TAB 07/06/14 Medications in the ED Pantoprazole Sodium 40 mg NOW STAT IV ; Start 08/16/20 at 03:06; Stop 08/16/20 at 03:12; Status DC Morphine Sulfate 4 mg NOW STAT IV ; Start 08/16/20 at 03:06; Stop 08/16/20 at 03:11; Status DC Ondansetron HCl 4 mg NOW STAT IV ; Start 08/16/20 at 03:06; Stop 08/16/20 at 03:12; Status DC RAMÍREZ RAYMOND MD Aug 16, 2020 03:20
[2020-08-16] MEDS ORDERED: SODIUM CHLORIDE 0.9% 1000ML 1,000 ML ONE (03:27)
[2020-08-16] MEDS ORDERED: SODIUM CHLORIDE 0.9% 1000ML 1,000 ML IV ONE (03:30)
[2020-08-16] MEDS ORDERED: DIATRIZOATE MEGL/DIATRIZOA SOD 30 ML BTL PO ONE (03:35)
[2020-08-16 03:36] LABS: BASOPHILS % 0.1 % (0.0-1.0); HEMATOCRIT 39.9 % (34.2-44.1); HEMOGLOBIN 12.6 g/dL (12.0-16.0); LYMPHOCYTES # (AUTO) 0.6 (1.0-3.2); LYMPHOCYTES % 8.4 % (18.0-39.1); MEAN CORPUSCULAR HEMOGLOBIN 25.9 pg (28-32); MEAN CORPUSCULAR HGB CONC 31.6 g/dL (31-35); MEAN CORPUSCULAR VOLUME 82.1 fL (81-99); MONOCYTES # (AUTO) 0.3 (0.2-0.8); MONOCYTES % 4.3 % (4.4-11.3); NEUTROPHILS # (AUTO) 6.4 (2.1-6.9); NEUTROPHILS % 86.9 % (38.7-80.0); PLATELET COUNT 270 x10e3/uL (140-360); RED BLOOD COUNT 4.86 x10e6/uL (3.6-5.1)
[2020-08-16 03:45] LABS: AMYLASE 82 U/L (25-125); LIPASE 35 U/L (8-78)
[2020-08-16 03:49] LABS: ALANINE AMINOTRANSFERASE 13 IU/L (0-55); ALBUMIN 4.3 g/dL (3.5-5.0); ALBUMIN/GLOBULIN RATIO 1.2 (0.8-2.0); ANION GAP 16.3 mmol/L (8-16); BLOOD UREA NITROGEN 7 mg/dL (7-26); BUN/CREATININE RATIO 11 (6-25); CALCIUM 8.8 mg/dL (8.4-10.2); CARBON DIOXIDE 23 mmol/L (22-29); CHLORIDE 100 mmol/L (98-107); CREATININE, SERUM 0.66 mg/dL (0.57-1.11); EST GLOMERULAR FILTRATION RATE > 60 ML/MIN (60-); GLUCOSE 145 mg/dL (74-118); POTASSIUM 3.3 mmol/L (3.5-5.1); SODIUM 136 mmol/L (136-145)
[2020-08-16 04:20] LABS: CLARITY,URINE CLOUDY (CLEAR); COLOR,URINE YELLOW (YELLOW); KETONES,URINE NEGATIVE (NEGATIVE); LEUKOCYTE ESTERASE ,URINE 1+ (NEGATIVE); NITRITE,URINE NEGATIVE (NEGATIVE); PROTEIN,URINE DIPSTICK 1+ (NEGATIVE); URINE UROBILINOGEN 0.2 mg/dL (0.2 - 1)
[2020-08-16 04:21] LABS: BILIRUBIN,URINE NEGATIVE (NEGATIVE)
[2020-08-16] MEDS ORDERED: SODIUM CHLORIDE 0.9% 50ML 50 ML ONE (04:28)
[2020-08-16 04:29] LABS: ALKALINE PHOSPHATASE 107 IU/L (40-150)
[2020-08-16] MEDS ORDERED: IOPAMIDOL 370 MG/ML 200 ML INFUS..BTL INJ ONE (04:29)
[2020-08-16 04:31] LABS: BACTERIA,URINE MANY /HPF; EPITHELIAL CELLS,URINE FEW /LPF; RBC,URINE 0-5 /HPF (0-5); WBC,URINE (MAN) 21-50 /HPF (0-5)
[2020-08-16 04:32] LABS: RENAL EPITHELIAL CELLS,URINE FEW
--- NOTE | 2020-08-16 05:06 | NUR ---
bladder scan performed per md request. 760cc noted on bladder scan. md informed. pt instructed to atttempt to void. pt voided 250cc cloudy yellow urine. bladder scan repeated 509cc urine noted on bladder scan. md informed c contreras catheter ordered.
[2020-08-16] MEDS ORDERED: CEFTRIAXONE SOD 1 GM/NS 50 ML 50 ML IV ONE ×2 (05:15)
[2020-08-16] MEDS ORDERED: KETOROLAC TROMETHAMINE 30 MG/ML VIAL IV STA (05:34)
--- NOTE | 2020-08-16 05:34 | Diagnostic Imaging Report ---
EXAM: CT Abdomen and Pelvis WITH contrast INDICATION: ^ABD PAIN. VOMITING ^[id number] ^0436 ^Y COMPARISON: CT dated 02/16/2018 TECHNIQUE: Abdomen and pelvis were scanned utilizing a multidetector helical scanner from the lung base to the pubic symphysis after administration of IV contrast. Coronal and sagittal reformations were obtained. Dose modulation, iterative reconstruction, and/or weight based adjustment of the mA/kV was utilized to reduce the radiation dose to as low as reasonably achievable. Routine protocol was performed. Scan was performed when during portal venous phase. IV CONTRAST: 100 mL of Isovue-370 ORAL CONTRAST: Gastroview COMPLICATIONS: None RADIATION DOSE: Total DLP: 586.33 mGy*cm Estimated effective dose: (DLP x 0.015 x size factor) mSv CTDIvol has been reviewed. It is below the limits set by the Radiation Protocol Committee (RPC). FINDINGS: LINES and TUBES: None. LOWER THORAX: Unremarkable HEPATOBILIARY: No focal hepatic lesions. Mild biliary dilatation, likely due to reservoir effect. GALLBLADDER: Surgically absent. SPLEEN: No splenomegaly. PANCREAS: No focal masses or ductal dilatation. ADRENALS: No adrenal nodules KIDNEYS/URETERS: Kidneys enhance symmetrically. No hydronephrosis. No renal mass. Left renal subcentimeter hypodensities are too small to characterize. No stones. GI TRACT: No abnormal distention or evidence of bowel obstruction. Mild wall thickening at small bowel anastomotic site (series 2, image 46). Appendix is absent. Evidence of gastric bypass surgery. Oral contrast within distal esophagus, suggestive of gastroesophageal reflux. PELVIC ORGANS/BLADDER: Unremarkable. LYMPH NODES: No lymphadenopathy. VESSELS: There is mild atherosclerotic disease in the aorta and major arterial branches. PERITONEUM / RETROPERITONEUM: No free air or fluid. BONES: Degenerative changes of spine. L3 vertebral body hemangioma. SOFT TISSUES: Unremarkable. IMPRESSION: 1. Mild nonspecific focal small bowel wall thickening at the anastomotic site. 2. No evidence of bowel obstruction. Signed by: Dr. Denton Estes MD on 08/16/2020 5:31 AM
[2020-08-16 05:35] VITALS: BP 188/76
== END 2020-08-16 06:43 | disposition home or self-care (01) ==
LOC: ER 03:12
DX: R10.32 Left lower quadrant pain (principal); R33.9 Retention of urine, unspecified; N39.0 Urinary tract infection, site not specified; R11.2 Nausea with vomiting, unspecified; K21.9 Gastro-esophageal reflux disease without esophagitis
CPT/HCPCS: 36415; 51702; 74177; 80053; 81001; 82150; 83690; 85025; 87086; 87186; 99284; C9113; J0696; J1885; J2270; J2405; J7030; Q9967; 51700

== ENCOUNTER 2020-08-19 13:27 | Emergency (ER) | payer MEDICARE ==
[~2020-08-19] VITALS: Ht 162.6 cm; Wt 81.6 kg
[2020-08-19] MEDS ORDERED: SODIUM CHLORIDE 0.9% 1000ML 1,000 ML IV STA (14:32)
[2020-08-19] MEDS ORDERED: PANTOPRAZOLE 40 MG 10ML VIAL IV NR (14:40)
[2020-08-19] MEDS ORDERED: MORPHINE SULFATE 2 MG/ML SYR 1ML IV NR (14:40)
[2020-08-19] MEDS ORDERED: ONDANSETRON HCL INJ 2MG/ML 2ML 2 MG/ML VIAL IV NR (14:40)
[2020-08-19] MEDS ORDERED: MAGNESIUM/ALUMINUM/SIMETHICONE 30 ML UDC PO ONE (14:45)
[2020-08-19] MEDS ORDERED: BELLADONNA ALK/PHENOBARBITAL 5 ML UDC PO ONE (14:45)
[2020-08-19] MEDS ORDERED: LIDOCAINE VISC 2% SOLN 15 ML UDC PO ONE (14:45)
[2020-08-19 15:04] LABS: BASOPHILS % 0.5 % (0.0-1.0); EOSINOPHILS % 0.1 % (0.0-6.0); HEMATOCRIT 39.7 % (34.2-44.1); HEMOGLOBIN 12.5 g/dL (12.0-16.0); LYMPHOCYTES # (AUTO) 1.4 (1.0-3.2); LYMPHOCYTES % 17.8 % (18.0-39.1); MEAN CORPUSCULAR HEMOGLOBIN 25.6 pg (28-32); MEAN CORPUSCULAR HGB CONC 31.5 g/dL (31-35); MEAN CORPUSCULAR VOLUME 81.4 fL (81-99); MONOCYTES # (AUTO) 0.8 (0.2-0.8); MONOCYTES % 10.5 % (4.4-11.3); NEUTROPHILS # (AUTO) 5.4 (2.1-6.9); NEUTROPHILS % 70.7 % (38.7-80.0); PLATELET COUNT 271 x10e3/uL (140-360); RED BLOOD COUNT 4.88 x10e6/uL (3.6-5.1)
[2020-08-19 15:21] LABS: ALBUMIN 3.5 g/dL (3.5-5.0); ALBUMIN/GLOBULIN RATIO 1.1 (0.8-2.0); ANION GAP 12.1 mmol/L (8-16); CALCIUM 8.6 mg/dL (8.4-10.2); CREATININE, SERUM 1.04 mg/dL (0.57-1.11); POTASSIUM 3.1 mmol/L (3.5-5.1)
[2020-08-19 15:27] LABS: CREATINE KINASE MB 2.7 ng/mL (0-5.0)
[2020-08-19] MEDS ORDERED: POTASSIUM CHLORIDE 20MEQ/15ML UDC PO NR (16:15)
[2020-08-19] MEDS ORDERED: POTASSIUM CHLORIDE 20MEQ/15ML UDC ONE (16:16)
== END 2020-08-19 17:04 | disposition home or self-care (01) ==
LOC: ER 13:32
DX: K29.70 Gastritis, unspecified, without bleeding (principal); K21.9 Gastro-esophageal reflux disease without esophagitis; R10.30 Lower abdominal pain, unspecified; M54.5 Low back pain
CPT/HCPCS: 36415; 80053; 82550; 82553; 83690; 84484; 85025; 99283; C9113; J2270; J2405; J7030

== ENCOUNTER 2021-04-09 10:34 | Inpatient (IN) | payer MEDICARE ==
[~2021-04-09] VITALS: Ht 162.6 cm; Wt 74.5 kg
[2021-04-09] MEDS ORDERED: ASPIRIN 81 MG CHEW TAB PO STA (11:32)
[2021-04-09] MEDS ORDERED: ASPIRIN 81 MG CHEW TAB PO ONE (11:45)
[2021-04-09 11:52] LABS: BASOPHILS % 0.6 % (0.0-1.0); EOSINOPHILS % 1.1 % (0.0-6.0); HEMOGLOBIN 10.9 g/dL (12.0-16.0); LYMPHOCYTES # (AUTO) 1.1 (1.0-3.2); LYMPHOCYTES % 30.7 % (18.0-39.1); MEAN CORPUSCULAR HEMOGLOBIN 26.5 pg (28-32); MEAN CORPUSCULAR HGB CONC 31.1 g/dL (31-35); MEAN CORPUSCULAR VOLUME 85.2 fL (81-99); MONOCYTES # (AUTO) 0.5 (0.2-0.8); MONOCYTES % 13.7 % (4.4-11.3); NEUTROPHILS # (AUTO) 1.9 (2.1-6.9); NEUTROPHILS % 53.6 % (38.7-80.0); PLATELET COUNT 240 x10e3/uL (140-360); RED BLOOD COUNT 4.11 x10e6/uL (3.6-5.1); RED CELL DISTRIBUTION WIDTH 15.5 % (11.7-14.4)
[2021-04-09 12:27] LABS: INR 0.92; PROTHROMBIN TIME 12.9 seconds (11.9-14.5)
[2021-04-09 12:28] LABS: PARTIAL THROMBOPLASTIN TIME 31.5 seconds (23.8-35.5)
[2021-04-09 12:29] LABS: CLARITY,URINE CLEAR (CLEAR); COLOR,URINE YELLOW (YELLOW); KETONES,URINE NEGATIVE (NEGATIVE); LEUKOCYTE ESTERASE ,URINE SMALL (NEGATIVE); NITRITE,URINE NEGATIVE (NEGATIVE); PROTEIN,URINE DIPSTICK NEGATIVE (NEGATIVE); URINE UROBILINOGEN 1 mg/dL (0.2 - 1)
[2021-04-09 12:37] LABS: ALBUMIN 3.8 g/dL (3.5-5.0); ALBUMIN/GLOBULIN RATIO 1.2 (0.8-2.0); CALCIUM 9.1 mg/dL (8.4-10.2); CREATININE, SERUM 0.68 mg/dL (0.57-1.11)
[2021-04-09 12:41] LABS: EPITHELIAL CELLS,URINE FEW /LPF; MUCUS,URINE RARE (RARE); RBC,URINE 0-5 /HPF (0-5); TRANSITIONAL EPI CELLS,URINE FEW
[2021-04-09 12:43] LABS: CREATINE KINASE MB 0.8 ng/mL (0-5.0)
[2021-04-09] MEDS ORDERED: ONDANSETRON HCL INJ 2MG/ML 2ML 2 MG/ML VIAL IV STA (12:49)
[2021-04-09] MEDS ORDERED: MORPHINE SULFATE INJ 4 MG/ML INJ 1ML IV PRN (13:00)
[2021-04-09 19:13] LABS: CREATINE KINASE MB 0.8 ng/mL (0-5.0)
[2021-04-09 19:15] VITALS: BP 123/90
[2021-04-09] MEDS ORDERED: XANAX1 MG PO (20:25)
[2021-04-09] MEDS ORDERED: PROTONIX20 MG PO (20:26)
[2021-04-09 20:30] VITALS: BP 123/90
[2021-04-09] MEDS ORDERED: LOSARTAN-HCTZ1 EACH (20:31)
[2021-04-09] MEDS ORDERED: REGLAN10 MG PO (20:35)
[2021-04-09 21:45] VITALS: BP 123/90
[2021-04-09] MEDS ORDERED: ACETAMINOPHEN 325 MG TAB PO PRN (22:15)
[2021-04-09] MEDS: ZOLPIDEM TARTRATE 5 MG TAB PO SCH (22:56)
[2021-04-10] VITALS (9 sets, daily range): BP systolic 96–180; BP diastolic 50–94
[2021-04-10 05:05] LABS: BASOPHILS % 0.5 % (0.0-1.0); EOSINOPHILS # (AUTO) 0.1 (0.0-0.4); EOSINOPHILS % 1.5 % (0.0-6.0); HEMATOCRIT 33.2 % (34.2-44.1); HEMOGLOBIN 10.4 g/dL (12.0-16.0); LYMPHOCYTES # (AUTO) 1.4 (1.0-3.2); LYMPHOCYTES % 34.6 % (18.0-39.1); MEAN CORPUSCULAR HEMOGLOBIN 26.3 pg (28-32); MEAN CORPUSCULAR HGB CONC 31.3 g/dL (31-35); MEAN CORPUSCULAR VOLUME 84.1 fL (81-99); MONOCYTES # (AUTO) 0.4 (0.2-0.8); MONOCYTES % 10.6 % (4.4-11.3); NEUTROPHILS # (AUTO) 2.2 (2.1-6.9); NEUTROPHILS % 52.8 % (38.7-80.0); PLATELET COUNT 220 x10e3/uL (140-360); RED BLOOD COUNT 3.95 x10e6/uL (3.6-5.1); RED CELL DISTRIBUTION WIDTH 15.2 % (11.7-14.4)
[2021-04-10 05:32] LABS: ALBUMIN 3.5 g/dL (3.5-5.0); ALBUMIN/GLOBULIN RATIO 1.2 (0.8-2.0); ANION GAP 12.1 mmol/L (8-16); CALCIUM 8.7 mg/dL (8.4-10.2); CREATININE, SERUM 0.73 mg/dL (0.57-1.11); POTASSIUM 4.1 mmol/L (3.5-5.1)
[2021-04-10 05:55] LABS: CREATINE KINASE 49 IU/L (29-168)
[2021-04-10] MEDS: PANTOPRAZOLE SOD 40 MG TABEC PO SCH (09:01)
[2021-04-10] MEDS ORDERED: ACETAMINOPHEN 325 MG TAB PO PRN (09:15)
[2021-04-10] MEDS ORDERED: HYDROCODONE/APAP 10MG-325MG TAB PO PRN (10:00)
[2021-04-10 10:05] LABS: CHOL/HDL RATIO 2.5 (3.0-3.6)
[2021-04-10] MEDS: ALPRAZOLAM 1 MG TAB PO PRN ×2 (11:12→16:53)
[2021-04-10] MEDS: ENOXAPARIN SOD INJ 40 MG/0.4 ML SYR SC SCH (16:52)
[2021-04-10] MEDS: MORPHINE SULFATE INJ 2 MG/ML SYR IV PRN (18:49)
[2021-04-10] MEDS: ZOLPIDEM TARTRATE 5 MG TAB PO SCH (21:17)
[2021-04-11] MEDS ORDERED: METOPROLOL TARTRATE INJ 1 MG/ML VIAL IV PRN (00:45)
[2021-04-11] MEDS: MORPHINE SULFATE INJ 2 MG/ML SYR IV PRN ×4 (00:57→16:14)
[2021-04-11 04:00] VITALS: BP 141/78
[2021-04-11 07:56] VITALS: BP 134/64
[2021-04-11 08:29] VITALS: BP 134/64
[2021-04-11] MEDS: PANTOPRAZOLE SOD 40 MG TABEC PO SCH (08:51)
[2021-04-11] MEDS ORDERED: ASPIRIN 81 MG ENTERIC COATED PO SCH (09:00)
[2021-04-11] MEDS ORDERED: HYDROCHLOROTHIAZIDE 25 MG TAB PO SCH (09:00)
[2021-04-11] MEDS ORDERED: LOSARTAN POTASSIUM 100 MG TAB PO SCH (09:00)
[2021-04-11 11:57] VITALS: BP 137/66
[2021-04-11] MEDS ORDERED: DEXTROSE 50% SYRINGE 50 ML IV ONE (14:37)
[2021-04-11] MEDS: ALPRAZOLAM 1 MG TAB PO PRN (15:07)
[2021-04-11 15:53] VITALS: BP 109/68
[2021-04-11] MEDS: ENOXAPARIN SOD INJ 40 MG/0.4 ML SYR SC SCH (16:14)
== END 2021-04-11 18:25 | disposition home or self-care (01) | DRG 313 ==
LOC: ER 14:38 → ERHOLD 14:46 → MED/SURG3 18:10 → OBSVTOIN 04-11 09:20
PROVIDERS: ADMIT Internal Medicine; ATTEND Internal Medicine
DX: R07.89 Other chest pain (principal); M54.9 Dorsalgia, unspecified; E66.3 Overweight; Z68.28 Body mass index [BMI] 28.0-28.9, adult; F41.9 Anxiety disorder, unspecified; K21.9 Gastro-esophageal reflux disease without esophagitis; E78.5 Hyperlipidemia, unspecified; I10 Essential (primary) hypertension; Z98.84 Bariatric surgery status; Z20.822 Contact with and (suspected) exposure to COVID-19
CPT/HCPCS: 36415; 71045; 78452; 80053; 80061; 81001; 82550; 82553; 82948; 83036; 83880; 84484; 85025; 85610; 85730; 93005; 93017; 99284; A9502; G0378; J1650; J2270; J2405; J7799; U0002